=== PATIENT | female | born 1950 | race Caucasian/White ===

== ENCOUNTER 2024-07-24 11:54 | Outpatient (CLI) | payer MEDICARE, SELFPAY ==
--- NOTE | 2024-07-24 13:29 | ECG_ITS ---
Test Date: 2024-07-24 13:33:09 Measurements Intervals [place] Rate: 73 P: 70 AK: 176 QRS: 21 QRSD: 84 T: 62 QT: 357 QTc: 395 Interpretive Statements SINUS RHYTHM No previous ECG available for comparison Electronically Signed On 07-24-2024 15:31:53 NON PROFIT JOB TITLES by Nery Zacarias M.D.
[2024-07-24 13:42] LABS: Basophils Absolute Auto 0.1 K/mm3 (0.0-0.1); Basophils Percent Auto 0.9 % (0.2-1.2); Eosinophils Absolute Auto 0.2 K/mm3 (0-0.3); Eosinophils Percent Auto 3.5 % (0-4.4); Hematocrit 37.3 % (37.0-47.0); Hemoglobin 12.3 g/dL (12.0-15.0); Immature Granulocyte Absolute 0.01 K/mm3 (0.00-0.031); Immature Granulocyte Percent A 0.2 % (0-0.5); Lymphocytes Absolute Auto 1.41 K/mm3 (0.9-3.2); Lymphocytes Percent Auto 24.9 % (18.3-44.2); Mean Corpuscular Hemoglobin 30.4 pg (26-34); Mean Corpuscular Volume 92.3 fl (80-100); Mean Platelet Volume 8.7 fl (7.4-10.4); Monocytes Absolute Auto 0.6 K/mm3 (0.1-0.6); Monocytes Percent Auto 10.1 % (2.6-8.5); Neutrophils Absolute Auto 3.4 K/mm3 (1.3-6.7); Neutrophils Percent Auto 60.4 % (45.5-73.1); Platelet Count Result 212 k/mm3 (150-375); Red Blood Count 4.04 M/mm3 (4.2-5.4); Red Cell Distribution Width 13.7 % (11.5-14.5); White Blood Count 5.7 K/mm3 (4.5-10.0)
[2024-07-24 13:52] LABS: Albumin Level 4.2 g/dL (3.5-5.1); Anion Gap 2 mmol/L (4-12); Blood Urea Nitrogen 13 mg/dL (7-17); Calcium 9.1 mg/dL (8.4-10.2); Carbon Dioxide 33 mmol/L (22-30); Chloride 100 mmol/L (98-107); Estimated Glomerular Filt Rate > 60; Glucose 97 mg/dL (65-110); Sodium 135 mmol/L (137-145)
[2024-07-24 14:07] LABS: Urine Cotinine NEGATIVE
[2024-07-24 15:41] LABS: Hemoglobin A1C 5.6 % (<5.7)
== END 2024-07-24 11:55 | disposition home or self-care (01) ==
LOC: ANHSURGERY 12:00
PROVIDERS: PCP Internal Medicine; Visit Provider Orthopaedic Surgery
DX: M17.12 Unilateral primary osteoarthritis, left knee (principal); Z01.818 Encounter for other preprocedural examination
CPT/HCPCS: 80048; 80307; 82040; 83036; 85025; 87081; 87181; 93005

== ENCOUNTER 2024-08-09 00:54 | Day surgery (SDC) | payer MEDICARE, SELFPAY ==
[2024-07-24 12:21] VITALS: BP 153/69; PULSE 80; RESP 16; TEMP 36.6; O2SAT 95; BMI 25.4
--- NOTE | 2024-07-24 12:48 | PC.NURSE ---
Report to the Outpatient Waiting Room, entrance under the green pavilion located off [facility], at time _06:00am on date _08/09/24 . Planned Procedure Time: _07:30am .? Time changes happen often and if your time is changed the preop area will call you the afternoon before. - You and your visitor will be asked to self-screen and do not enter if you have any COVID symptoms. Please call surgeon if you need to reschedule. - A mask is optional within the hospital at this time. Patients may have clear liquids (water, carbonated beverages, clear teas, apple juice) until 3 hours prior to surgery with a maximum of 20 ounces. - No food from midnight until time of surgery and no smoking. This includes no chewing gum, candy or mints.( 04:30am) Take only the following medications with a SIP of water on the morning of surgery: ____Tylenol if needed for pain DO NOT STOP ANY OF YOUR OTHER PRESCRIPTION MEDICATIONS PRIOR TO SURGERY EXCEPT THE FOLLOWING Medications to discontinue per physician None Date to take last dose__None Please no make-up, nail croatian, hairspray, perfume, deodorant, or body powder the day of surgery.? No jewelry (including any body piercings) or valuables the day of surgery, leave them at home.? Please take a shower or bath the night before, or the morning of, surgery with an antibacterial soap.? Wear comfortable, loose fitting clothing.? - Jewelry must be removed prior to entering the operating room.? Rings and piercings that are not removed may be cut off. - The hospital will not accept responsibility for valuables.? - Please leave all valuables, including medications, at home the day of surgery. If you are going home after surgery, a licensed truck driver helper must drive you home.? - NO public transportation without another adult if you receive anesthesia. - We recommend that an adult stay with you for 24 hours following discharge. - We also recommend that you do not drive, make important decision, drink alcoholic beverages, or take any drugs that were not prescribed by your health care provider for at least 24 hours after your discharge time. Follow any additional instructions given to you from your surgeon. Telephone instructions given to _Patient and asked if any additional questions and then verbalized understanding. Patient advised to call surgeon office or pre surgery nurse liaison [phone] if any additional questions.
--- NOTE | 2024-08-08 07:53 | PM.IMHP ---
H&P: HPI History of Present Illness Date/Time: 08/08/24 07:53 Chief Complaint: Left knee DJD Narrative: 74-year-old female patient of Dr. Brown who presents today for a left total knee arthroplasty. Patient has severe lateral compartment osteoarthritis with limited range of motion. She has treating this for several years with occasional cortisone injection and anti-inflammatories. At this point patient feels she is ready to proceed with total knee arthroplasty rather than continue nonsurgical treatment. Patient has not had a cortisone injection over 6 months. Review of Systems Review of Systems: All systems reviewed & are unremarkable except as noted in HPI and below PMFSH Past Medical History Medical History (Updated 08/08/24 @ 07:57 by NOVA Briscoe) Cancer Anemia Migraine Thyroid disorder Surgical History Surgical History (Updated 07/02/24 @ 11:51 by Zayda Lance CMA) History of cholecystectomy 2007 Family History Family History (Updated 07/02/24 @ 11:49 by Zayda Lance CMA) Mother Hypertension Cancer Father Heart disease Sibling Heart disease Hypertension Legal Guardian Heart disease Hypertension Social History Social History (Updated 07/02/24 @ 14:44 by Cleo Chirinos CMA) Smoking status: Never smoker Alcohol intake: never Substance use: never Current Housing: Decline to Answer Concerned About Future Housing: Decline to Answer Difficulty Paying Gas/Electric Bills: Decline to Answer Difficulty Paying for Meds: Decline to Answer Currently Unemployed: Decline to Answer Education: Decline to Answer Difficulty w/ Childcare or Family Care: Decline to Answer Living arrangements: alone Occupation/Education: retired Gender identity (if verbalized by the patient): Female Spiritual care concerns: No Meds Home Medications and Allergies Home Medications ?Medication ?Instructions ?Recorded ?Confirmed ?Type mupirocin 2 % topical ointment 1 applic topical BID #22 grams 07/26/24 Rx Allergies Allergy/AdvReac Type Severity Reaction Status Date / Time zanamivir Allergy Intermediate sob Unverified 07/24/24 12:19 Exam Narrative: 74-year-old female alert pleasant. She is 5 ft 5 and 149 lb BMI is 24.7. She walks with a mild limp has an obvious valgus deformity to the knee. Range of motion of the left knee is from 5-100 degrees. Trace effusion. There is audible crepitus with range of motion in the knee. He has normal varus valgus stability. Hip range of motion is full without discomfort. Normal quad strength. 2+ dorsalis pedis pulse. Normal sensation to the left lower extremity, no edema to the left lower extremity. She has normal muscle strength in all muscle groups left lower extremity. Resp: Auscultation: clear to auscultation bilaterally Cardio: Rate: regular rate Rhythm: regular rhythm Assessment and Plan Assessment and plan (1) Left knee DJD: Code(s): M17.12 - Unilateral primary osteoarthritis, left knee Status: Acute Assessment and Plan: 74-year-old female who has severe lateral compartment osteoarthritis. She is having pain on a daily basis and limitations with normal daily activities due to the knee. At this point she feels she is ready proceed with total knee arthroplasty. Surgical procedures well as the risks and complications were discussed in detail and all questions were answered and we will proceed. Patient will avoid any aspirin or ibuprofen products 1 week prior to surgery. She will see her primary care doctor for pre-surgical clearance. She will also see her certified endoscopy technician for pre-surgical clearance. Patient's nasal swab was positive for MRSA and she has been D colonizing. Hemoglobin preop earlier 12.3 platelets were 212. Creatinine 0.60 with normal GFR.
[2024-08-09] VITALS (19 sets, daily range): BP systolic 143–181; BP diastolic 58–88; PULSE 86–118; RESP 14–18; TEMP 36.4–37.1; O2SAT 95–100
--- NOTE | ~2024-08-09 | XR_ITS ---
EXAMINATION: [id number] DATE: 08/09/2024 12:14 REHEATER INDICATION: Left knee arthroplasty TECHNIQUE: 2 views left knee FINDINGS: There is a left total knee arthroplasty in expected position. Subcutaneous gas with fluid and air in the joint are consistent with recent surgery. No evidence of periprosthetic fracture. IMPRESSION: 1. Recent left total knee arthroplasty. Reviewed, dictated and finalized at location B. ATER
[2024-08-09] MEDS: ACETAMINOPHEN 500 MG TABLET 1000 MG PO (06:20)
[2024-08-09] MEDS: TRANEXAMIC ACID 1,000MG/ISO100 1,000 MG/100 ML BAG 200 MG IVPB (06:25)
[2024-08-09] MEDS: LACTATED RINGERS 1,000 ML 30 ML IV CONT ×2 (06:25→11:21)
[2024-08-09] MEDS: VANCOMYCIN 1,250 MG/NS 250 ML BAG 166.67 MG IVPB (06:30)
--- NOTE | 2024-08-09 06:43 | WPDHPUPDATE1 ---
History and Physical Update Update Date/Time: 08/09/24 06:43 History and Physical has been reviewed, including an updated exam of the patient. There are NO changes in the patient's condition. Risks, benefits, and alternatives have been discussed and questions answered. Patient agrees to proceed with procedure.
--- NOTE | 2024-08-09 07:05 | WPDANESEPPF ---
Anes - Initial Pre Proc Eval Procedure: Operation Date: 08/09/24 07:30 Proposed Procedures p Left Total Knee Arthroplasty - Keon Bhagat MD Date/Time: 08/09/24 07:05 Surgeon: Keon Bhagat MD Pre Op Diagnosis: Lt Knee O A Patient Data Age: 74 Gender: F Height: 1.65 m Weight: 69 kg Last Vital Signs Temp 36.4 C 08/09/24 06:04 Pulse 86 08/09/24 06:04 Resp 18 08/09/24 06:04 BP 144/64 H 08/09/24 06:04 Pulse Ox 99 08/09/24 06:04 O2 Del Method Room Air 08/09/24 06:04 Allergies Allergy/AdvReac Type Severity Reaction Status Date / Time zanamivir Allergy Intermediate sob Unverified 08/09/24 06:34 Home Medications ?Medication ?Instructions ?Recorded ?Confirmed ?Type No Home Medications 08/09/24 08/09/24 History Laboratory Tests 08/09/24 06:13 Blood Type Pending Antibody Screen Pending Patient hx anesthesia problems: none Family hx anesthesia problems: none Results Review: All pre-operative results and documents have been reviewed as part of the pre-operative evaluation. [facility] Past Medical History Medical History Cancer Anemia Migraine Thyroid disorder Surgical History Surgical History History of cholecystectomy 2007 Family History Family History Mother Hypertension Cancer Father Heart disease Sibling Heart disease Hypertension Legal Guardian Heart disease Hypertension Social History Social History Smoking status: Never smoker Alcohol intake: never Substance use: never Current Housing: Decline to Answer Concerned About Future Housing: Decline to Answer Difficulty Paying Gas/Electric Bills: Decline to Answer Difficulty Paying for Meds: Decline to Answer Currently Unemployed: Decline to Answer Education: Decline to Answer Difficulty w/ Childcare or Family Care: Decline to Answer Living arrangements: alone Occupation/Education: retired Gender identity (if verbalized by the patient): Female Spiritual care concerns: No Anes - Eval Final PreProcedure Day of Procedure 08/09/24 07:05 Patient weight: normal Heart: regular rate and rhythm Lungs: decreased breath sounds Airway: Mallampati scale class II Neurological: alert and oriented Last oral intake: >/= 8 hours ASA classification: IV Emergent: no Anesthetic plan: proceed Anesthesia type and monitoring: general ETT and standard monitoring Results Review: All pre-operative results and documents have been reviewed as part of the pre-operative evaluation. Informed Consent: The patient's anesthetic plan and its attendant risks and benefits were discussed with the patient/family/POA. Questions were solicited and answers provided to the satisfaction of the patient/family/POA.
--- NOTE | 2024-08-09 07:09 | P.PNAN_ITS ---
Anes - Initial Pre Proc Eval Procedure: Operation Date: 08/09/24 07:30 Proposed Procedures p Left Total Knee Arthroplasty - Keon Bhagat MD Date/Time: 08/09/24 07:09 Surgeon: Keon Bhagat MD Pre Op Diagnosis: Lt Knee O A Patient Data Age: 74 Gender: F Height: 1.65 m Weight: 69 kg Last Vital Signs Temp 36.4 C 08/09/24 06:04 Pulse 86 08/09/24 06:04 Resp 18 08/09/24 06:04 BP 144/64 H 08/09/24 06:04 Pulse Ox 99 08/09/24 06:04 O2 Del Method Room Air 08/09/24 06:04 Allergies Allergy/AdvReac Type Severity Reaction Status Date / Time zanamivir Allergy Intermediate sob Unverified 08/09/24 06:34 Home Medications ?Medication ?Instructions ?Recorded ?Confirmed ?Type No Home Medications 08/09/24 08/09/24 History Laboratory Tests 08/09/24 06:13 Blood Type Pending Antibody Screen Pending Patient hx anesthesia problems: none Family hx anesthesia problems: none Results Review: All pre-operative results and documents have been reviewed as part of the pre- operative evaluation. [facility] Past Medical History Medical History Cancer Anemia Migraine Thyroid disorder Surgical History Surgical History History of cholecystectomy 2007 Family History Family History Mother Hypertension Cancer Father Heart disease Sibling Heart disease Hypertension Legal Guardian Heart disease Hypertension Social History Social History Smoking status: Never smoker Alcohol intake: never Substance use: never Current Housing: Decline to Answer Concerned About Future Housing: Decline to Answer Difficulty Paying Gas/Electric Bills: Decline to Answer Difficulty Paying for Meds: Decline to Answer Currently Unemployed: Decline to Answer Education: Decline to Answer Difficulty w/ Childcare or Family Care: Decline to Answer Living arrangements: alone Occupation/Education: retired Gender identity (if verbalized by the patient): Female Spiritual care concerns: No Anes - Eval Final PreProcedure Day of Procedure 08/09/24 07:09 Patient weight: normal Heart: regular rate and rhythm Lungs: decreased breath sounds Airway: Mallampati scale class II Neurological: alert and oriented Last oral intake: >/= 8 hours ASA classification: IV Emergent: no Anesthetic plan: proceed Anesthesia type and monitoring: general ETT and standard monitoring Results Review: All pre-operative results and documents have been reviewed as part of the pre- operative evaluation. Informed Consent: The patient's anesthetic plan and its attendant risks and benefits were discussed with the patient/family/POA. Questions were solicited and answers provided to the satisfaction of the patient/family/POA.
[2024-08-09] MEDS: ceFAZolin 2 GM/D5W 50 ML 2 GM/50 ML BAG IVPB ×2 (07:45→15:19)
[2024-08-09] MEDS: SODIUM CHLORIDE 0.9% IV 37.7 ML, MORPHINE SULFATE INJ (*CRX) 2 MG, ROPivacaine HCL 1% 2... INFILTRATE (08:16)
[2024-08-09] MEDS: ceFAZolin SODIUM 1 GM VIAL (08:17)
[2024-08-09] MEDS: GENTAMICIN BONE CEMENT REFOBACIN 1 EACH TOPICAL (09:51)
[2024-08-09] MEDS: ceFAZolin SODIUM 1 GM VIAL IV PUSH (10:18)
[2024-08-09] MEDS: TRANEXAMIC ACID 1,000 MG/10 ML AMPUL 1000 MG IV PUSH (10:18)
--- NOTE | 2024-08-09 11:04 | W.PM.PROC2 ---
Procedure Note - Detailed Date of Procedure 08/09/24 Pre-op Diagnosis Lt Knee O A, grade 3 valgus deformity Post-op Diagnosis Same Procedure Performed Left total knee arthroplasty with constrained Appremaguard 360 system Surgeon Keon Bhagat MD Building Rental Superintendent Agustin Anesthesia General Description of Procedure Patient was brought to the operating room and general anesthesia was administered. She received 2 g of Ancef weight based vancomycin 1 g of TXA preoperatively. Under anesthesia the knee seemed to come out to within a few degrees of full extension. Obvious valgus deformity. Essentially no passive correct ability of her obvious valgus deformity. The left lower extremity was prepped draped usual fashion. Limb was exsanguinated tourniquet elevated to 250 mmHg. We later raise this to 275 when her pressure settled about 150. A 7 in longitudinal incision was made. A standard parapatellar arthrotomy utilized. Partial excision of the infrapatellar fat pad was carried out and a quadriceps synovectomy performed. Adhesions in the lateral gutter were bluntly released. Suprapatellar fat pad excised. The patella was severely arthritic and scalloped. It measured 22 mm centrally. This was cut to 16 mm and a protector cap applied. A guide salina was inserted on femoral canal after aspiration of canal contents using the a 5 degree valgus bushing, 10 mm of bone was removed from the distal femur. This removed only about 1 mm from the distal surface of the lateral femoral condyle because of wear. The tibial plateau was cut removing about 2 mm of bone from the low point of the lateral plateau perpendicular to the axis of the tibia and alignment in the coronal and sagittal planes confirmed. As expected the lateral side was much tighter than the medial side extension. A transverse release of the lateral retinaculum was performed 1 cm proximal to the cut surface of the lateral plateau and the posterolateral capsule was released over the lateral collateral ligament up to the lateral margin of the popliteus tendon at the level joint line. Flexion gap at 90? measured 8 mm medially and 12 mm laterally. The femoral sizing guide was applied at 5? of external rotation which matched [place] line. There is no varus slope on the tibial surface preoperatively so 5? seemed appropriate for rotation. Posterior referencing pinholes were placed and the 62.5 femoral cutting block vanguard applied and AP and chamfer cuts were made. This gave us a flush cut with the anterior cortex and was just narrower than the with of the distal femur. We trialed with the CR femur and the 10 mm 5 in 1 trial. Stability was appropriate at 90? of flexion with a mm each of medial lateral opening at 90? inappropriate anterior drawer stability. However the knee was far too tight in extension laterally medial side booked open at about 20 degree flexion contracture. Therefore additional 2 mm of bone removed the distal femur and chamfers revisited this time. At that time posterior femoral osteophytes removed and central posterior capsular release carried out off the distal femur and the knee still had a 10 degree flexion contracture due to tightness laterally. Therefore an additional 2 mm of bone was removed the distal femur chamfer cuts revisited. The tibia was sized to a size 71 which fit centrally line to line anteromedially to posterolaterally at proper rotation this was punched. On re- trialing the knee came out to about 5? from full extension. No play laterally on varus stress. We removed additional 1 more mm of bone from the distal femur chamfer cuts revisited and on read trialing the knee still lacked a few degrees of extension but did have a mm of opening laterally with varus stress. Medially there was about 6 or 7 mm of opening on valgus stress. The we revisited the posterior capsule released and performed complete central and lateral capsule release and we debulked the anterior surface of the hypertrophic fabella. The lateral head of the gastrocnemius was left intact. On read trialing now the knee came out to full extension. No lateral opening on varus stress and again about 6 or 7 mm of medial opening to valgus stress. Still appropriate anterior posterior stability at 90? with the 5 in 1 insert. At this point the 360 femoral trial was impacted onto the distal femur and centralized properly pinned in place and the chisel inserted which completed that osteotomy without difficulty the sides of the box cut with the saw and the box bone removed without complication. The jig for the boss Reamer was applied and the reaming performed and the 62.5 femoral trial with SSK box assembly fit nicely and on trialing with the SSK post attached to the tibial trial, there was full range of motion and stability and appropriate anterior drawer stability at 90 and 70?. In extension the medial side opened up only 2 or 3 mm controlled by the post. The patella was sized to the 31 and the drill guide applied lug holes drilled the 31 fit line to line proximal to distal. With the 6.2 mm thin trial composite thickness was 22 mm. The tourniquet had been let down about 20 minutes earlier, at 90 minutes, and we assessed patellar tracking at this time. A lateral retinacular release was necessary to achieve central patellar tracking this was performed and patellar tracking was appropriate this time. At this point the limb was re-exsanguinated tourniquet elevated to 300 mmHg and the tibial plateau and distal femoral surfaces were prepared with the step drill bony surfaces thoroughly irrigated and dried. Two batches of methylmethacrylate 1 with gentamicin powder were mixed. Cement was medially applied the size 71 vanguard tibial tray and then the size 62.5 SSK femur cement applied the tibial plateau and into the canal pressurized and the tibial component fully seated. Cement was applied to the distal femur and into the canal. We had previously inserted a 24 mm cement restrictor. Femoral component was fully seated the knee brought into extension with the 10 mm 5 and 1 trial and the 31 thin patella cemented. Tourniquet was released. Total tourniquet time was approximately 110 minutes. Two additional g of Ancef and 1 g of TXA administered. After cement hardening excess cement was carefully sought for removed. We trialed with the 10 SSK insert and we found the same stability and range of motion findings as above. It appeared that the patella touched the post of the SSK tibial trial at about 130?. After thorough irrigation the size 10 mm thick 71 SSK tibial polyethylene was placed without difficulty locked the locking pin range of motion stability and patellar tracking reconfirmed. Local anesthetic cocktail was injected in the periarticular soft tissues. Hemostasis was confirmed. Arthrotomy was closed with 2. Vicryl 1. Unidirectional barbed Stratafix suture. Ira flexion was 130? with the arthrotomy closed. Skin closed with 2 subcutaneous Vicryl and glue. EBL was approximately 250 cc. There were no complications he was transferred postop recovery room in stable condition. [facility] Billing Surgery - Charge Forward: Surgery Billing (Left total knee arthroplasty)
--- NOTE | 2024-08-09 11:30 | PM.OP ---
Procedure Note - Brief Procedure Note - Brief Date of procedure: 08/09/24 Lt Knee O A Procedure performed: Left total knee arthroplasty Surgeon: NOVA Briscoe Findings: 74-year-old female underwent left total knee arthroplasty on 08/09. I was involved in the procedure including positioning the patient on the OR table in 1st assisting through the time surgery. Total time spent was 4 hours
[2024-08-09] MEDS: fentaNYL CITRATE INJ (*CRX) 100 MCG/2 ML VIAL 25 MCG IV PUSH ×8 (11:34→12:28)
--- NOTE | 2024-08-09 11:47 | PM.PNORT ---
Progress Note: A&P Assessment and Plan (1) History of total left knee replacement: Code(s): Z96.652 - Presence of left artificial knee joint Status: Acute Assessment and Plan: Patient was seen in recovery room and is able to dorsiflex her left ankle and toes with normal power Subjective Subjective Date/Time Seen: 08/09/24 11:47 Objective Data Vital Signs Vital Signs: Vital Signs - 24 hr 08/09/24 06:04 08/09/24 11:21 08/09/24 11:30 Temperature 36.4 C 37.1 C Pulse Rate 86 98 96 Respiratory Rate 18 17 17 Blood Pressure 144/64 H 166/77 H 170/76 H Pulse Oximetry 99 98 100 Oxygen Delivery Room Air Simple Face Mask Simple Face Mask Oxygen Flow Rate 8 8 08/09/24 11:40 Temperature Pulse Rate 93 Respiratory Rate 16 Blood Pressure 161/82 H Pulse Oximetry 100 Oxygen Delivery Simple Face Mask Oxygen Flow Rate 8 Intake/Output Intake/Output: Intake & Output 08/06/24 08/07/24 08/08/24 08/09/24 23:59 23:59 23:59 23:59 Intake Total 50 Balance 50 Meds/Results Medications: Active Medications Generic Name Dose Route Start Last Admin Trade Name Freq PRN Reason Stop Dose Admin Fentanyl Citrate 25 mcg 08/09/24 07:12 08/09/24 11:37 Fentanyl Citrate Inj (*Crx) 100 Mcg/2 Ml Vial IV PUSH 25 mcg Q2M PRN Administration Pain Lactated Ringer's 1,000 mls @ 30 mls/hr 08/09/24 07:15 08/09/24 11:21 Lr - Lactated Ringers Iv IV CONT Infused .Q24H JYOTI Infusion Lactated Ringer's 1,000 mls @ 30 mls/hr 08/09/24 07:15 08/09/24 11:21 Lr - Lactated Ringers Iv IV CONT 30 mls/hr .Q24H JYOTI Administration Ondansetron HCl 4 mg 08/09/24 07:12 Ondansetron Inj 4 Mg/2 Ml Vial IV PUSH ONCE PRN Nausea Oxycodone HCl 5 mg 08/09/24 07:12 Oxycodone Hcl (*Crx) 5 Mg Tab Ir PO ONCE PRN Pain Labs Labs: Laboratory Results - last 24 hr 08/09/24 06:13 Blood Type A Positive Antibody Screen Positive Antibody Identification Anti-E Antigen Identification [place] B Antigen - NEGATIVE RASHAWN, IgG Interpret Neg RASHAWN, Poly Interpret Not Performed RASHAWN, Complement Interp Negative
[2024-08-09] MEDS: ONDANSETRON INJ 4 MG/2 ML VIAL IV PUSH ×2 (12:20→15:28)
--- NOTE | 2024-08-09 12:51 | ADMGEN ---
This patient, Brooke Chirinos, was admitted to Medical Room 246-01. Patient/family oriented to hospital policies and general routines including ID bracelet, bed and alarms, visiting hours, pain management, procedures, bathroom and other care routines, personal items, smoking policy, room service/diet, and visiting hours. Information on how to activate the Rapid Response Team has been discussed. Patient/Family are encouraged to report perceived risks to care and to ask questions if they do not understand what they are told or what they should do.
[2024-08-09] MEDS: SODIUM CHLORIDE 0.9% IV 1,000 ML 125 ML IV CONT (13:40)
[2024-08-09] MEDS: ACETAMINOPHEN 325 MG TABLET 650 MG PO ×3 (14:10→20:42)
[2024-08-09] MEDS: oxyCODONE HCL (*CRX) 2.5 MG TAB IR PO ×4 (14:11→21:05)
[2024-08-09] MEDS: VANCOMYCIN 1,000 MG/NS 250 ML 1,000 MG/250 ML BAG 250 MG IVPB (17:46)
--- NOTE | 2024-08-09 18:09 | P.PNIM_ITS ---
Progress Note: A&P Assessment and Plan (1) History of total left knee replacement: Code(s): Z96.652 - Presence of left artificial knee joint Status: Acute Plan underwent left total knee arthroplasty on 08/09 Subjective Date/time seen: 08/09/24 18:09 Interval history: Patient is sleeping and discussed with nursing team who denies any complaints. Will evaluate the patient tomorrow morning Review of Systems Review of Systems: n/a Exam Narrative: n/a Objective Data Vital Signs Vital Signs: Vital Signs - 24 hr 08/09/24 06:04 08/09/24 11:21 08/09/24 11:30 Temperature 97.6 F 98.7 F Pulse Rate 86 98 96 Respiratory Rate 18 17 17 Blood Pressure 144/64 H 166/77 H 170/76 H Pulse Oximetry 99 98 100 Oxygen Delivery Room Air Simple Face Mask Simple Face Mask Oxygen Flow Rate 8 8 08/09/24 11:40 08/09/24 11:50 08/09/24 12:00 Temperature 98.5 F Pulse Rate 93 98 93 Respiratory Rate 16 15 14 Blood Pressure 161/82 H 170/74 H 161/88 H Pulse Oximetry 100 99 99 Oxygen Delivery Simple Face Mask Simple Face Mask Room Air Oxygen Flow Rate 8 8 08/09/24 12:10 08/09/24 12:20 08/09/24 12:25 Temperature Pulse Rate 95 89 89 Respiratory Rate 16 14 14 Blood Pressure 172/72 H 169/73 H 154/73 H Pulse Oximetry 96 95 96 Oxygen Delivery Nasal Cannula Nasal Cannula Nasal Cannula Oxygen Flow Rate 2 2 2 08/09/24 12:40 08/09/24 12:45 08/09/24 12:57 Temperature 97.8 F 97.6 F Pulse Rate 97 92 100 Respiratory Rate 16 16 14 Blood Pressure 163/78 H 170/80 H 169/76 H Pulse Oximetry 98 98 97 Oxygen Delivery Nasal Cannula Nasal Cannula Oxygen Flow Rate 2 2 08/09/24 13:15 08/09/24 13:45 08/09/24 14:51 Temperature 97.5 F L Pulse Rate 101 H 103 H Respiratory Rate 18 14 Blood Pressure 178/75 H 181/72 H Pulse Oximetry 98 98 Oxygen Delivery Room Air Oxygen Flow Rate 08/09/24 15:12 08/09/24 15:32 08/09/24 16:00 Temperature 97.8 F Pulse Rate 118 H 103 H Respiratory Rate 18 Blood Pressure 144/76 H Pulse Oximetry 96 Oxygen Delivery Room Air Oxygen Flow Rate 08/09/24 17:40 Temperature Pulse Rate Respiratory Rate Blood Pressure 143/58 H Pulse Oximetry Oxygen Delivery Oxygen Flow Rate Intake/Output Intake/Output: Intake & Output 08/06/24 08/07/24 08/08/24 08/09/24 23:59 23:59 23:59 23:59 Intake Total 400 Balance 400 Meds/Results Medications: Active Medications Generic Name Dose Route Start Last Admin Trade Name Freq PRN Reason Stop Dose Admin Acetaminophen 650 mg 08/09/24 13:00 08/09/24 16:40 Acetaminophen 325 Mg Tablet PO 650 mg Q4H JYOTI Administration Apixaban 2.5 mg 08/10/24 09:00 Apixaban 2.5 Mg Tablet PO 08/21/24 21:01 Q12HR JYOTI Celecoxib 100 mg 08/10/24 08:00 Celecoxib 100 Mg Capsule PO DAILY@0800 JYOTI Diphenhydramine HCl 25 mg 08/09/24 12:48 Diphenhydramine Hcl Inj 50 Mg/Ml Vial IV PUSH Q6H PRN Itching Famotidine 20 mg 08/09/24 21:00 Famotidine 20 Mg Tablet PO Q12HR JOYTI Sodium Chloride 1,000 mls @ 125 mls/hr 08/09/24 12:48 08/09/24 13:40 Normal Saline Iv IV CONT 08/09/24 20:47 125 mls/hr .Q8H JYOTI Administration Cefazolin Sodium 2 gm in 50 mls @ 100 mls/hr 08/09/24 16:00 08/09/24 15:49 Ancef 2 Gm/D5w 50 Ml IVPB 08/10/24 08:29 Infused Q8H JYOTI Infusion Vancomycin HCl 1,000 mg in 250 mls @ 250 mls/hr 08/09/24 18:00 08/09/24 17:46 Vancomycin 1,000 Mg/Ns 250 Ml IVPB 08/10/24 06:59 250 mls/hr Q12H JYOTI Administration Morphine Sulfate 2 mg 08/09/24 12:48 Morphine Sulfate (*Crx) 2 Mg/Ml Inj IV PUSH Q2H PRN Breakthrough Pain Rated 4-6 or NPO Naloxone HCl 0.1 mg 08/09/24 12:48 Naloxone Hcl 0.4 Mg/Ml Vial IV PUSH Q2M PRN Opiate Reversal Ondansetron HCl 4 mg 08/09/24 12:48 08/09/24 15:28 Ondansetron Inj 4 Mg/2 Ml Vial IV PUSH 4 mg Q4H PRN Administration Nausea And Vomiting Oxycodone HCl 2.5 mg 08/09/24 13:00 08/09/24 17:37 Oxycodone Hcl (*Crx) 2.5 Mg Tab Ir PO 2.5 mg Q4H JYOTI Administration Oxycodone HCl 2.5 mg 08/09/24 12:48 Oxycodone Hcl (*Crx) 2.5 Mg Tab Ir PO Q4H PRN Pain Rated 4-6 Polyethylene Glycol 17 gm 08/10/24 09:00 Polyethylene Glycol 3350 17 Gm Powd.Pack PO QAM [facility] Senna/Docusate Sodium 2 tab 08/09/24 17:00 08/09/24 16:45 Senna/Docusate Sodium Tablet PO Not Given BID JYOTI Trimethoprim/Sulfamethoxazole 1 tab 08/10/24 09:00 Sulfamethoxazole/Trimethoprim 800/160 Mg Ds Tablet PO Q12HR [facility] Radiology Results: ITS Impressions Knee X-Ray 08/09/24 12:14 IMPRESSION: 1. Recent left total knee arthroplasty. Labs Labs: Laboratory Results - last 24 hr 08/09/24 06:13 Blood Type A Positive Antibody Screen Positive Antibody Identification Anti-E Antigen Identification [place] B Antigen - NEGATIVE RASHAWN, IgG Interpret Neg RASHAWN, Poly Interpret Not Performed RASHAWN, Complement Interp Negative Hospitalist MIPS Advance Care Plan I have confirmed that the patient's Advanced Care Plan is present, code status is documented, or surrogate decision maker is listed in patient medical record.: Yes
[2024-08-09] MEDS: FAMOTIDINE 20 MG TABLET PO (20:42)
--- NOTE | 2024-08-09 22:00 | PC.NURSE ---
DAY SHIFT NURSE CHARTED ON 2100 DOSE OF OXY 2.5MG INSTEAD OF A PRN DOSE, SO 2100 DOSE CHARTED UNDER PRN DOSE
--- NOTE | 2024-08-09 23:57 | PC.NURSE ---
Pt stated that she was sore and rated her pain at a 6. Morphine ordered for break through pain and offered to patient. Patient refused to take morphine and stated that she just wanted to wait for her normal oral dose of pain medication. I instructed her that it would really help but she stated that she didn't want it at this point. Oral scheduled pain medication will be given at 0005. Pt stated that walking to the bathroom helped.
[2024-08-10] VITALS (7 sets, daily range): BP systolic 115–146; BP diastolic 50–62; PULSE 91–113; RESP 16–18; TEMP 36.7; O2SAT 95–98
[2024-08-10] MEDS: ceFAZolin 2 GM/D5W 50 ML 2 GM/50 ML BAG IVPB ×2 (00:06→07:36)
[2024-08-10] MEDS: oxyCODONE HCL (*CRX) 2.5 MG TAB IR PO ×5 (00:07→12:22)
[2024-08-10] MEDS: ACETAMINOPHEN 325 MG TABLET 650 MG PO ×4 (00:07→12:22)
[2024-08-10] MEDS: VANCOMYCIN 1,000 MG/NS 250 ML 1,000 MG/250 ML BAG 250 MG IVPB (06:01)
[2024-08-10 06:04] LABS: Basophils Percent Auto 0.2 % (0.2-1.2); Eosinophils Percent Auto 0.2 % (0-4.4); Hematocrit 29.7 % (37.0-47.0); Hemoglobin 9.7 g/dL (12.0-15.0); Immature Granulocyte Absolute 0.04 K/mm3 (0.00-0.031); Immature Granulocyte Percent A 0.5 % (0-0.5); Lymphocytes Absolute Auto 1.42 K/mm3 (0.9-3.2); Lymphocytes Percent Auto 16.6 % (18.3-44.2); Mean Corpuscular HGB Conc 32.7 g/dl (32-36); Mean Corpuscular Hemoglobin 30.8 pg (26-34); Mean Corpuscular Volume 94.3 fl (80-100); Mean Platelet Volume 9.2 fl (7.4-10.4); Monocytes Absolute Auto 1.2 K/mm3 (0.1-0.6); Monocytes Percent Auto 13.9 % (2.6-8.5); Neutrophils Absolute Auto 5.9 K/mm3 (1.3-6.7); Neutrophils Percent Auto 68.6 % (45.5-73.1); Platelet Count Result 180 k/mm3 (150-375); Red Blood Count 3.15 M/mm3 (4.2-5.4); Red Cell Distribution Width 13.8 % (11.5-14.5); White Blood Count 8.6 K/mm3 (4.5-10.0)
[2024-08-10 06:22] LABS: Alanine Aminotransferase 14 U/L (6-35); Albumin Level 3.2 g/dL (3.5-5.1); Alkaline Phosphatase 49 U/L (38-126); Anion Gap 2 mmol/L (4-12); Aspartate Amino Transferase 35 U/L (14-36); Bilirubin,Total 0.5 mg/dL (0.2-1.3); Blood Urea Nitrogen 9 mg/dL (7-17); Calcium 8.1 mg/dL (8.4-10.2); Carbon Dioxide 30 mmol/L (22-30); Chloride 101 mmol/L (98-107); Estimated CRCL calculation 72 ml/min; Estimated Glomerular Filt Rate > 60; Glucose 103 mg/dL (65-110); Potassium 3.7 mmol/L (3.4-5.0); Sodium 133 mmol/L (137-145)
[2024-08-10] MEDS: APIXABAN 2.5 MG TABLET PO (08:05)
[2024-08-10] MEDS: FAMOTIDINE 20 MG TABLET PO (08:05)
[2024-08-10] MEDS: polyethylene glycoL 3350 17 GM POWD.PACK PO (08:05)
[2024-08-10] MEDS: SENNA/DOCUSATE SODIUM TABLET 2 TAB PO (08:05)
[2024-08-10] MEDS: SULFAMETHOXAZOLE/TRIMETHOPRIM 800/160 MG DS TABLET 1 TAB PO (08:05)
[2024-08-10] MEDS: CELECOXIB 100 MG CAPSULE PO (08:05)
--- NOTE | 2024-08-10 08:11 | PCOTNOTE ---
The patient treatment was not able to be completed patient is nauseous and in pain but agreeable to after her medication. Will plan to continue treatment per plan of care.
--- NOTE | 2024-08-10 08:29 | ECG_ITS ---
Test Date: 2024-08-10 09:15:53 Measurements Intervals Bureau Rate: 102 P: 55 WA: 191 QRS: 26 QRSD: 78 T: 67 QT: 318 QTc: 414 Interpretive Statements SINUS TACHYCARDIA POSSIBLE LEFT ATRIAL ENLARGEMENT [-0.1mV P-WAVE IN V1/V2] LOW QRS VOLTAGE IN PRECORDIAL LEADS [QRS DEFLECTION < 1.0 mV IN CHEST LEADS] Compared to ECG 07/24/2024 13:33:09 NO SIGNIFICANT CHANGES Electronically Signed On 08-10-2024 12:22:33 JIGSAW OPERATOR by Nery Zacarias M.D.
--- NOTE | 2024-08-10 08:30 | PM.PNORT ---
Subjective Subjective Date/Time Seen: 08/10/24 08:30 Interval history: Postop day 1 patient is alert. She is afebrile vital signs are stable. Morning labs are noted. Patient has nausea last night following surgery. This has improved this morning. Pain overall is well controlled. She has been up multiple times to the restroom overnight as well as this morning. Dressing is dry and intact. Neurovascularly she is intact. She is able do a straight leg raise in the bed and is comfortable. Eliquis will be started this morning. Patient will work with Physical therapy this morning and if she remains comfortable she will be discharged home. If she wishes to stay for an additional therapy session and leave early this afternoon. Objective Data Vital Signs Vital Signs: Vital Signs - 24 hr 08/09/24 11:21 08/09/24 11:30 08/09/24 11:40 Temperature 98.7 F Pulse Rate 98 96 93 Respiratory Rate 17 17 16 Blood Pressure 166/77 H 170/76 H 161/82 H Pulse Oximetry 98 100 100 Oxygen Delivery Simple Face Mask Simple Face Mask Simple Face Mask Oxygen Flow Rate 8 8 8 08/09/24 11:50 08/09/24 12:00 08/09/24 12:10 Temperature 98.5 F Pulse Rate 98 93 95 Respiratory Rate 15 14 16 Blood Pressure 170/74 H 161/88 H 172/72 H Pulse Oximetry 99 99 96 Oxygen Delivery Simple Face Mask Room Air Nasal Cannula Oxygen Flow Rate 8 2 08/09/24 12:20 08/09/24 12:25 08/09/24 12:40 Temperature Pulse Rate 89 89 97 Respiratory Rate 14 14 16 Blood Pressure 169/73 H 154/73 H 163/78 H Pulse Oximetry 95 96 98 Oxygen Delivery Nasal Cannula Nasal Cannula Nasal Cannula Oxygen Flow Rate 2 2 2 08/09/24 12:45 08/09/24 12:57 08/09/24 13:15 Temperature 97.8 F 97.6 F 97.5 F L Pulse Rate 92 100 101 H Respiratory Rate 16 14 18 Blood Pressure 170/80 H 169/76 H 178/75 H Pulse Oximetry 98 97 98 Oxygen Delivery Nasal Cannula Oxygen Flow Rate 2 08/09/24 13:45 08/09/24 14:51 08/09/24 15:12 Temperature Pulse Rate 103 H Respiratory Rate 14 Blood Pressure 181/72 H Pulse Oximetry 98 Oxygen Delivery Room Air Room Air Oxygen Flow Rate 08/09/24 15:32 08/09/24 16:00 08/09/24 17:40 Temperature 97.8 F Pulse Rate 118 H 103 H Respiratory Rate 18 Blood Pressure 144/76 H 143/58 H Pulse Oximetry 96 Oxygen Delivery Oxygen Flow Rate 08/09/24 20:00 08/09/24 22:33 08/10/24 00:00 Temperature 98.0 F Pulse Rate 107 H 100 113 H Respiratory Rate 18 Blood Pressure 145/62 H Pulse Oximetry 95 Oxygen Delivery Oxygen Flow Rate 08/10/24 02:33 08/10/24 04:00 08/10/24 07:41 Temperature 98.0 F Pulse Rate 111 H 105 H Respiratory Rate 18 Blood Pressure 127/50 L Pulse Oximetry 98 Oxygen Delivery Room Air Oxygen Flow Rate Intake/Output Intake/Output: Intake & Output 08/07/24 08/08/24 08/09/24 08/10/24 23:59 23:59 23:59 23:59 Intake Total 650 50 Balance 650 50 Meds/Results Medications: Active Medications Generic Name Dose Route Start Last Admin Trade Name Freq PRN Reason Stop Dose Admin Acetaminophen 650 mg 08/09/24 13:00 08/10/24 08:05 Acetaminophen 325 Mg Tablet PO 650 mg Q4H JYOTI Administration Apixaban 2.5 mg 08/10/24 09:00 08/10/24 08:05 Apixaban 2.5 Mg Tablet PO 08/21/24 21:01 2.5 mg Q12HR JYOTI Administration Celecoxib 100 mg 08/10/24 08:00 08/10/24 08:05 Celecoxib 100 Mg Capsule PO 100 mg DAILY@0800 JYOTI Administration Diphenhydramine HCl 25 mg 08/09/24 12:48 Diphenhydramine Hcl Inj 50 Mg/Ml Vial IV PUSH Q6H PRN Itching Famotidine 20 mg 08/09/24 21:00 08/10/24 08:05 Famotidine 20 Mg Tablet PO 20 mg Q12HR JYOTI Administration Morphine Sulfate 2 mg 08/09/24 12:48 Morphine Sulfate (*Crx) 2 Mg/Ml Inj IV PUSH Q2H PRN Breakthrough Pain Rated 4-6 or NPO Naloxone HCl 0.1 mg 08/09/24 12:48 Naloxone Hcl 0.4 Mg/Ml Vial IV PUSH Q2M PRN Opiate Reversal Ondansetron HCl 4 mg 08/09/24 12:48 08/09/24 15:28 Ondansetron Inj 4 Mg/2 Ml Vial IV PUSH 4 mg Q4H PRN Administration Nausea And Vomiting Oxycodone HCl 2.5 mg 08/09/24 13:00 08/10/24 08:05 Oxycodone Hcl (*Crx) 2.5 Mg Tab Ir PO 2.5 mg Q4H JYOTI Administration Oxycodone HCl 2.5 mg 08/09/24 12:48 08/09/24 21:05 Oxycodone Hcl (*Crx) 2.5 Mg Tab Ir PO 2.5 mg Q4H PRN Administration Pain Rated 4-6 Polyethylene Glycol 17 gm 08/10/24 09:00 08/10/24 08:05 Polyethylene Glycol 3350 17 Gm Powd.Pack PO 17 gm QAM JYOTI Administration Senna/Docusate Sodium 2 tab 08/09/24 17:00 08/10/24 08:05 Senna/Docusate Sodium Tablet PO 2 tab BID JYOTI Administration Trimethoprim/Sulfamethoxazole 1 tab 08/10/24 09:00 08/10/24 08:05 Sulfamethoxazole/Trimethoprim 800/160 Mg Ds Tablet PO 1 tab Q12HR JYOTI Administration Radiology Results: ITS Impressions Knee X-Ray 08/09/24 12:14 IMPRESSION: 1. Recent left total knee arthroplasty. Labs Labs: Laboratory Results - last 24 hr 08/09/24 08/10/24 06:13 05:29 WBC 8.6 RBC 3.15 L Hgb 9.7 L Hct 29.7 L MCV 94.3 MCH 30.8 MCHC 32.7 RDW 13.8 Plt Count 180 MPV 9.2 Immature Gran % (Auto) 0.5 Neut % (Auto) 68.6 Lymph % (Auto) 16.6 L [place] % (Auto) 13.9 H Eos % (Auto) 0.2 Baso % (Auto) 0.2 Lymph # (Auto) 1.42 [place] # (Auto) 1.2 H Eos # (Auto) 0.0 Baso # (Auto) 0.0 Abs Immat Gran (auto) 0.04 H Absolute Neuts (auto) 5.9 Absolute Nucleated RBC 0.000 Nucleated RBC % 0.0 Sodium 133 L Potassium 3.7 Chloride 101 Carbon Dioxide 30 Anion Gap 2 L BUN 9 Creatinine 0.50 L Estim Creat Clear Calc 72 Estimated GFR > 60 Glucose 103 Calcium 8.1 L Total Bilirubin 0.5 AST 35 ALT 14 Alkaline Phosphatase 49 Total Protein 5.0 L Albumin 3.2 L Antibody Identification Anti-E Antigen Identification [place] B Antigen - NEGATIVE RASHAWN, Complement Interp Negative
[2024-08-10] MEDS: dexAMETHasone SOD PHOS INJ 10 MG/ML 1 ML VIAL IV PUSH (08:57)
--- NOTE | 2024-08-10 09:52 | P.DS_ITS ---
DS: Admitting Diagnosis Discharge Date 08/10 Admitting Diagnosis Left knee DJD D DS: Discharge Diagnosis Discharge Diagnosis (1) Left knee DJD: Code(s): M17.12 - Unilateral primary osteoarthritis, left knee Status: Acute DS: Summary Hospital Course Hospital Course: 74-year-old female who underwent left total knee arthroplasty on 08/09. Patient underwent the procedure without complications. Postoperatively she has been afebrile vital signs are stable. She is on Eliquis for DVT prophylaxis. She did have some nausea the evening of surgery this improved by the next morning. She was up multiple times the day of surgery not only with physical therapy but also going to the restroom. Pain overall is comfortable. She has been urinating well. Again patient is on Eliquis for DVT prophylaxis. Pain is well controlled with scheduled Tylenol every 4 hours and 2.5 mg oxycodone. She is on 100 mg Celebrex daily. She is weight-bearing as tolerated. Morning of postop day 1 dressing was dry and intact. She will be discharged home on 08/10. She was advised to keep leg elevated home prevent swelling but do her exercises on hourly basis. Patient had a very stiff knee preoperatively and skin take extra work on her part to regain her full range of motion. This was discussed with her as well. She will go home with a 2 week course of Bactrim DS due to her nasal swab showing MRSA. She will also go home with Senokot and MiraLax. Patient was advised any questions or concerns she is to call the office otherwise we will see her at her appointments Time Spent with Patient Time attestation: Total time spent providing and/or coordinating discharge services: DS: Data Data Completed and Pending Labs on day of discharge: Labs from last 24 hours 08/10/24 05:29 WBC 8.6 RBC 3.15 L Hgb 9.7 L Hct 29.7 L MCV 94.3 MCH 30.8 MCHC 32.7 RDW 13.8 Plt Count 180 MPV 9.2 Immature Gran % (Auto) 0.5 Neut % (Auto) 68.6 Lymph % (Auto) 16.6 L [place] % (Auto) 13.9 H Eos % (Auto) 0.2 Baso % (Auto) 0.2 Lymph # (Auto) 1.42 [place] # (Auto) 1.2 H Eos # (Auto) 0.0 Baso # (Auto) 0.0 Abs Immat Gran (auto) 0.04 H Absolute Neuts (auto) 5.9 Absolute Nucleated RBC 0.000 Nucleated RBC % 0.0 Sodium 133 L Potassium 3.7 Chloride 101 Carbon Dioxide 30 Anion Gap 2 L BUN 9 Creatinine 0.50 L Estim Creat Clear Calc 72 Estimated GFR > 60 Glucose 103 Calcium 8.1 L Total Bilirubin 0.5 AST 35 ALT 14 Alkaline Phosphatase 49 Total Protein 5.0 L Albumin 3.2 L Discharge Plan Discharge Patient Disposition: Home, Self-Care Discharge Instructions: KEON BHAGAT M.D [facility] [address] [address] [address] [place] [address] POST-OPERATIVE DISCHARGE INSTRUCTIONS TOTAL KNEE ARTHROPLASTY 1. When resting, do not rest in the chair.When resting, lie on your back, with back flat on the couch or bed, with leg elevated above heart to minimize swelling. You may put a pillow under your head. . Significant swelling could indicate a blood clot and if this occurs call the office (or go to the ER) to have a venous ultrasound. Therefore, do not rest in a chair. 2. At least five times a day spend several minutes stretching your knee into flexion while sitting in the chair and also stretching your knee out straight The abilities to bend your knee fully and straighten your knee fully are two most important knee functions to focus on during your recovery. 3. It is ok to sit in chair to eat, use the toilet and receive a guest and to do your stretching exercises, but, sitting in a chair will cause your leg to swell. Therefore, avoid additional time sitting in the chair. and don't rest in the chair. 4. Wound Care: Nursing will give you an additional Mepilex dressing at the time of discharge. Patient to remove the dressing and apply a new Mepilex dressing at home 7 days after surgery and leave the dressing on until seen in office. It is normal to see a small amount of blood on the silver pad of the Mepilex dressing. Its designed to hold small spots of blood. However, if the blood reaches the edge of the pad up to the boarder of the clear membrane that surrounds the pad, the pad is saturated and the Mepilex dressing should be removed and a new Mepilex dressing should be applied. 5. May shower with a Mepilex dressing in place.The water will run off the dressing. 6. Unless you are told otherwise, you may put full weight on your operated leg. Use a walker for balance and practice walking as normally as you can, ideally for a few minutes every hour while you are awake. 7. I would advise against putting ice packs on your knee incision. Ice constricts blood flow which can impar healing of the knee incision. IMPORTANT: Remember not to sit in the chair for more than 30 minutes at a time. As a rule, during the first 14 days after surgery, only sit in the chair to work on the chair knee bending stretch exercise, for meals or for use of the restroom. Sitting in the chair promotes significant swelling in the knee and leg which will make your knee stiff and more painful and which simulates having a blood clot in the veins of the leg. If this type of significant diffuse swelling occurs, an ultrasound at the hospital will be necessary to rule out a blood clot. Be up walking around with the walker for a few minutes every hour while awake and then rest laying on your back on the couch or in bed with your leg elevated on cushions or pillows. Do not rest in the chair. Patient Language: Belarusian Stand Alone Forms: General Discharge Instructions Follow-up/Referrals: Keon Bhagat MD [Physician] - Keep Reg. Scheduled Appt. Discharge Medications: New acetaminophen 325 mg Tablet 650 mg PO Q4H Qty: 90 0RF sennosides-docusate sodium [Senokot-S] 8.6-50 mg Tablet 2 tab PO BID Qty: 60 0RF celecoxib [Celebrex] 100 mg Capsule 100 mg PO DAILY@0800 Qty: 60 0RF Eliquis 2.5 mg Tablet 2.5 mg PO Q12HR Qty: 28 0RF oxycodone 5 mg tablet 2.5 mg PO Q4H PRN (Reason: Pain Rated 4-6) Qty: 30 0RF polyethylene glycol 3350 [Miralax] 17 gram Powder In Packet 17 g PO QAM Qty: 30 0RF sulfamethoxazole-trimethoprim 800-160 mg Tablet 1 tab PO Q12HR Qty: 28 0RF
--- NOTE | 2024-08-10 14:02 | P.PNIM_ITS ---
Progress Note: A&P Assessment and Plan (1) History of total left knee replacement: Code(s): Z96.652 - Presence of left artificial knee joint Status: Acute Plan underwent left total knee arthroplasty on 08/09 Subjective Date/time seen: 08/10/24 14:02 Interval history: Patient was evaluated at the bedside. Denies any specific complaint other than the pain at the surgical site. EKG shows sinus tachycardia. Patient denies any past medical history other than chronic pericardial effusion for which she is undergoing serial echocardiogram. Review of Systems Review of Systems: n/a Exam Narrative: n/a Objective Data Vital Signs Vital Signs: Vital Signs - 24 hr 08/09/24 14:51 08/09/24 15:12 08/09/24 15:32 Temperature 97.8 F Pulse Rate 118 H Respiratory Rate 18 Blood Pressure 144/76 H Pulse Oximetry 96 Oxygen Delivery Room Air Room Air 08/09/24 16:00 08/09/24 17:40 08/09/24 20:00 Temperature Pulse Rate 103 H 107 H Respiratory Rate Blood Pressure 143/58 H Pulse Oximetry Oxygen Delivery 08/09/24 22:33 08/10/24 00:00 08/10/24 02:33 Temperature 98.0 F 98.0 F Pulse Rate 100 113 H 111 H Respiratory Rate 18 18 Blood Pressure 145/62 H 127/50 L Pulse Oximetry 95 98 Oxygen Delivery 08/10/24 04:00 08/10/24 07:41 08/10/24 07:43 Temperature 98.0 F Pulse Rate 105 H 91 Respiratory Rate 16 Blood Pressure 115/60 Pulse Oximetry 95 Oxygen Delivery Room Air 08/10/24 08:00 08/10/24 12:00 Temperature Pulse Rate 101 H 94 Respiratory Rate Blood Pressure Pulse Oximetry Oxygen Delivery Intake/Output Intake/Output: Intake & Output 08/07/24 08/08/24 08/09/24 08/10/24 23:59 23:59 23:59 23:59 Intake Total 650 50 Balance 650 50 Meds/Results Radiology Results: ITS Impressions Knee X-Ray 08/09/24 12:14 IMPRESSION: 1. Recent left total knee arthroplasty. Labs Labs: Laboratory Results - last 24 hr 08/10/24 05:29 WBC 8.6 RBC 3.15 L Hgb 9.7 L Hct 29.7 L MCV 94.3 MCH 30.8 MCHC 32.7 RDW 13.8 Plt Count 180 MPV 9.2 Immature Gran % (Auto) 0.5 Neut % (Auto) 68.6 Lymph % (Auto) 16.6 L [place] % (Auto) 13.9 H Eos % (Auto) 0.2 Baso % (Auto) 0.2 Lymph # (Auto) 1.42 [place] # (Auto) 1.2 H Eos # (Auto) 0.0 Baso # (Auto) 0.0 Abs Immat Gran (auto) 0.04 H Absolute Neuts (auto) 5.9 Absolute Nucleated RBC 0.000 Nucleated RBC % 0.0 Sodium 133 L Potassium 3.7 Chloride 101 Carbon Dioxide 30 Anion Gap 2 L BUN 9 Creatinine 0.50 L Estim Creat Clear Calc 72 Estimated GFR > 60 Glucose 103 Calcium 8.1 L Total Bilirubin 0.5 AST 35 ALT 14 Alkaline Phosphatase 49 Total Protein 5.0 L Albumin 3.2 L Hospitalist MIPS Advance Care Plan I have confirmed that the patient's Advanced Care Plan is present, code status is documented, or surrogate decision maker is listed in patient medical record.: Yes Medication Reconciliation I have utilized all available resources to obtain, update and review the patie nts current medications (includes all prescriptions, OTC, herbals, cannabis, and nutritional supplements).: Yes
== END 2024-08-10 12:57 | disposition home or self-care (01) ==
LOC: ANHSURGERY 05:50 → ANH2MED 12:50
PROVIDERS: General Practice; Physician Assistant Surgical; PCP Internal Medicine; Visit Provider Orthopaedic Surgery
PROC: (CPT 27447; principal; 2024-08-09 07:30)
DX: M17.12 Unilateral primary osteoarthritis, left knee (principal); M25.762 Osteophyte, left knee; D64.9 Anemia, unspecified; E07.9 Disorder of thyroid, unspecified; Z98.890 Other specified postprocedural states; Z90.49 Acquired absence of other specified parts of digestive tract; Z85.9 Personal history of malignant neoplasm, unspecified; Z80.9 Family history of malignant neoplasm, unspecified; Z82.49 Family history of ischemic heart disease and other diseases of the circulatory system
CPT/HCPCS: 27447; 36415; 73560; 80053; 85025; 86850; 86880; 86900; 86901; 86902; 93005; 97110; 97161; 97165; 97530; 97535; A9270; C1713; C1776; J0171; J0330; J0690; J1100; J1885; J2003; J2270; J2405; J2704; J2795; J3010; J3370; J7030; J7120

== ENCOUNTER 2024-09-19 14:13 | Outpatient (CLI) | payer MEDICARE, SELFPAY ==
--- NOTE | ~2024-09-19 | US_ITS ---
EXAMINATION: US venous doppler [facility] DATE: 09/19/2024 14:58 INDICATION: Left lower limb swelling TECHNIQUE: Grayscale ultrasound images without and with compression and Doppler ultrasound images of the left lower extremity veins were obtained. COMPARISON: None. FINDINGS: The visualized portions of left common femoral vein, profunda (deep) femoral vein, femoral vein, popl iteal vein, peroneal veins, posterior tibial veins and greater saphenous vein outflow are patent. IMPRESSION: 1. No deep venous thrombosis in the left lower limb. Reviewed, dictated and finalized at location B. MANAGER
[2024-09-19 14:40] LABS: Uric Acid 3.6 mg/dL (2.5-7.5)
--- OUTSIDE RECORDS SUMMARY | 2024-09-19 15:10 | XMS_ITS ---
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 Past Plans No past plan information found. Radiation Treatments * No radiation treatments are documented for this patient in [facility]. Treatments may have been administered in another system. Lifetime Dose Tracking * Chemical Lifetime Dose Automatic Entry Manual Entr y DLP 4,486 mGycm 4,486 mGycm 0 mGycm
--- OUTSIDE RECORDS SUMMARY | 2024-09-19 15:10 | XMS_ITS | Referral Summary ---
Author [facility] Address [address] [place] [address] Care Team Providers Care Assembler Erector Name Role Phone Don Brown MD Primary Care Provider [phone] Bayron Francisco MD Unavailable [phone] Encounters Date Type Department Care Team Description 08/02/2024 Telephone [facility] [address] [place] [address] Advanced Medicine 8th [place] [address] [place] [id number] Cornelius Pickett MD PhD 07/30/2024 11:30 AM FILM SOUND COORDINATOR Ancillary Procedure [facility] [address] [place] [address] [address] [place] [address] Pericardial effusion 07/26/2024 Telephone [facility] [address] [place] [address] [facility] 8th [place] [address] [place] [address] Cornelius Pickett MD PhD 07/26/2024 Telephone [facility] [facility] Floor 1, [address] [place] [address] Cornelius Pickett MD PhD bp/hr readings 07/24/2024 Telephone [facility] Floor 1, [address] [place] [address] Cornelius Pickett MD PhD 07/24/2024 Telephone [facility] [address] [facility] 8th [place] [address] [place] [address] Franchesca Del Valle 06/28/2024 11:00 AM FILM SOUND COORDINATOR Office Visit [facility] [address] [facility] Floor 1, [address] [place] [address] Cornelius Pickett MD PhD Follicular lymphoma of lymph nodes of multiple sites (HCC) (Primary Dx); Pericardial effusion from Last 3 Months Allergies Active Allergy Reactions Criticality Noted Date Comments Doxycycline Other (See comments) Low 04/14/2021 Nitrofurantoin Monohyd/M-Cryst Unknown 04/14 Other Nausea only Low 06/21/2006 mortrin Medications No known medications Active Problems Problem Noted Date Diagnosed Date Other constipation 05/02/2024 Diarrhea 05/02/2024 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 Basal cell carcinoma of skin of other parts of f neema 08/23/2014 Overview (03/08/2023): Social History Tobacco Use Types Packs/Day Years Used Date Smoking Tobacco: Never Smokeless Tobacco: Never Alcohol Use Standard Drinks/Week Comments No 0 (1 standard drink = 0.6 oz pur e alcohol) Comments Unknown Sex and Gender Information Value Date Recorded Sex Assigned at Not on file Legal Sex Female 8:36 PM FILM SOUND COORDINATOR Gender Identity Female 02/26/2019 6:25 AM CDT Sexual Orientation Straight 02/26/2019 6: 25 AM CDT Last Filed Vital Signs Vital Sign Reading Time Taken Comments Blood Pressure 168/74 06/28/2024 10:40 AM FILM SOUND COORDINATOR Pulse 76 06/28/2024 10:40 AM FILM SOUND COORDINATOR Temperature 36.7 ??C (98 ??F) 06/28/2024 10: 40 AM FILM SOUND COORDINATOR Respiratory Rate 17 06/28/2024 10:4 0 AM FILM SOUND COORDINATOR Oxygen Saturation 95% 05/02/2024 12: 48 PM CDT Inhaled Oxygen Concentration - - Weight 68.9 kg (151 lb 12.8 oz) 024 10:40 AM FILM SOUND COORDINATOR Height 165.1 cm (5' 5 ) 06/28/2024 10:4 0 AM FILM SOUND COORDINATOR Body Mass Index 25.26 06/28/2024 10:40 AM FILM SOUND COORDINATOR Plan of Treatment Scheduled Procedures Name Priority Associated Diagnoses Date/Ti me COLONOSCOPY Open Access Other constipation Diarrhea, unspecified type Procedures Procedure Name Priority Date/Time Associated Diagnosis Comments TRANSTHORACIC ECHO (TTE) COMPLETE W DOPPLER/CF W CONTRAST Routine 07/30/2024 12:16 PM FILM SOUND COORDINATOR Pericardial effusion ECG 12-LEAD Routine 06/28/2024 10:47 AM FILM SOUND COORDINATOR Pericardial effusion SERUM HEPATITIS C AB Routine 10/30/2014 6:23 AM CDT from Last 3 Months or Most Recently Relevant to Health Maintenance Results * TRANSTHORACIC ECHO (TTE) COMPLETE W DOPPLER/CF W CONTRAST (07/30/2024 12:16 PM FILM SOUND COORDINATOR) LV EF 73 % CARDIOREPORT Anatomical Region Laterality Modality Ultrasound 07/30/2024 11:3 0 AM FILM SOUND COORDINATOR Narrative 07/30/2024 2:27 PM FILM SOUND COORDINATOR Patient name: Rola Mcmanus Date of test: 07/30/2024 Type of test: TTE /[facility] #: 0 Date of : 1950 (F) 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 Contrast Administered by: Loli Harding RN Supervised/Interpreted by: Juvencio Ordoñez MD Diagnosis: Location: [facility] Reason for test: follow up pericardial effusion MV Structure: Normal, ?MV Motion: Normal, ?? Mitral Annulus: Normal AV Structure: tricuspid and is Normal, ?? AV Motion: Normal Aotic root: Normal, ?TM: Normal, ?? PV: Normal Valvular Vegetations: none seen, ?Mass/Thrombi: none seen RA: Normal Measurements: ?M-Mode ?Normal ? Aotic Root: ? <3.8 ? LA: ? <3.8 ? RV: ? <2.8 ? LV(ED): ? <5.7 ? LV(ES): ? Variable ?2D Linear Normal ? Aotic Root: 3.3 cm ?<3.6 ? Ao Indexed: 1.9 cm/M2 <2.0 ? LA: ? <3.8 ? RV: ? 3.5 cm ?<4.2 ? LV(ED): ? 5.1 cm ?<5.3 ? LV(ES): ? 2.7 cm ?<3.5 ?2D Vol. ?? Normal ?Indexed ?? Indexed Normal RA: ? 31.0 ml ? 17.7 ml/M2 ?9-33 ? LA: ? 58.0 ml ? 33.0 ml/M2 ?16-34 ? RV: ? <11.6 ? LV(ED): ? 111.0 ml ??46-106 ?63.2 ml/M2 ?<62 ? LV(ES): ? 30.0 ml ?? 14-42 ? 17.1 ml/M2 ?<25 ?3D Vol. ? Indexed Normal LV(ED): ? 49.6 mL/m2 ?? <62 ? LV(ES): ? 14.8 mL/m2 ?? <24 ? LV EF: 73 % ?? (Normal: >=54%) ?? LV Septum: 1.0 cm ?(Normal: <0.9 cm) Wall Motion Scoring (1=Normal 2=Hypo 3=Akinetic 4=Dyskin./Aneurysm 0=Not visualized) Parasternal Long [place]:MAS=1 BAS=1 MIL=1 EDWIN=1 Parasternal Short [place]:MAS=1 MIS=1 OH=1 MIL=1 MAL=1 MA=1 Apical 4 Chambers:=1 MIS=1 BIS=1 BAL=1 MAL=1 AL=1 AC=1 Apical 2 Chambers:AI=1 OH=1 BI=1 BA=1 MA=1 AA=1 AC=1 LV Global Longitudinal Strain: -17.6% ??(Normal <-17%) RV Global Longitudinal Strain: LV Function: Normal LV Ejection Fraction, ??(EF=54-74%) RV Function: Normal Septal Motion: Normal Pericardial Effusion: moderate Atrial Septum: Normal DOPPLER/COLOR FLOW DOPPLER RESULTS: Diastolic Function: Normal Tricuspid Valve: mild TV regurgitation Pulmonic Valve: Mild DC AV Regurgitation: Mild AR AV Stenosis: no AV Area: ??cm2 AV Pressure Gradient (mmHg): Mean: 0, Peak:0 MV Regurgitation: Mild MR MV Stenosis: no MS MV Area: ??cm2 MV Pressure Gradient (mmHg): Mean: 0 MV ERO: ??cm Regurg. Vol.: ??ml/beat Regurg. Frac.: ??% PA Pressure: 30 mmHg DOPPLER/COLOR FOLOW DOPPLER COMMENTS: Mild AR, Mild MR, no , no MS, mild TV regurgitation, Mild DC. Diastolic function: Normal CONTRAST: 0.4 ml Optison Administered, (2.6 ml wasted). SUMMARY: BP 139/72 mm Hg, HR 71/min; Moderate pericardial effusion; Right atrial collapse; Mild Aortic Regurgitation. Mild Tricuspid Regurgitation with normal estimated Pulmonary Artery Systolic Pressure. ??LV cavity size is in the upper-normal range; Normal LV wall thickness/mass. Mild Mitral Regurgitation. Small-sized inferior vena cava. No signs of hemodynamic compromise; ??As compared to previous study (05/30/2024), there are no appreciable changes. Confirmed on ??07/30/2024 - 14:27:50 by Juvencio Ordoñez MD By signing this report, the attending certified public accountant certifies that he or she has personally supervised and interpreted the echocardiogram and has reviewed and or edited and agrees with the written comments contained within the report. 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 Contrast Administered by: Loli Harding RN Supervised/Interpreted by: Juvencio Ordoñez MD Diagnosis: Location: [facility] Reason for test: follow up pericardial effusion MV Structure: Normal, MV Motion: Normal, Mitral Annulus: Normal AV Structure: tricuspid and is Normal, AV Motion: Normal Aotic root: Normal, TM: Normal, PV: Normal Valvular Vegetations: none seen, Mass/Thrombi: none seen RA: Normal Measurements: M-Mode Normal Aotic Root: <3.8 LA: <3.8 RV: <2.8 LV(ED): <5.7 LV(ES): Variable 2D Linear Normal Aotic Root: 3.3 cm <3.6 Ao Indexed: 1.9 cm/M2 <2.0 LA: <3.8 RV: 3.5 cm <4.2 LV(ED): 5.1 cm <5.3 LV(ES): 2.7 cm <3.5 2D Vol. Normal Indexed Indexed Normal RA: 31.0 ml 17.7 ml/M2 9-33 LA: 58.0 ml 33.0 ml/M2 16-34 RV: <11.6 LV(ED): 111.0 ml 46-106 63.2 ml/M2 <62 LV(ES): 30.0 ml 14-42 17.1 ml/M2 <25 3D Vol. Indexed Normal LV(ED): 49.6 mL/m2 <62 LV(ES): 14.8 mL/m2 <24 LV EF: 73 % (Normal: >=54%) LV Septum: 1.0 cm (Normal: <0.9 cm) Wall Motion Scoring (1=Normal 2=Hypo 3=Akinetic 4=Dyskin./Aneurysm 0=Not visualized) Parasternal Long [place]:MAS=1 BAS=1 MIL=1 EDWIN=1 Parasternal Short [place]:MAS=1 MIS=1 OH=1 MIL=1 MAL=1 MA=1 Apical 4 Chambers:=1 MIS=1 BIS=1 BAL=1 MAL=1 AL=1 AC=1 Apical 2 Chambers:AI=1 OH=1 BI=1 BA=1 MA=1 AA=1 AC=1 LV Global Longitudinal Strain: -17.6% (Normal <-17%) RV Global Longitudinal Strain: LV Function: Normal LV Ejection Fraction, (EF=54-74%) RV Function: Normal Septal Motion: Normal Pericardial Effusion: moderate Atrial Septum: Normal DOPPLER/COLOR FLOW DOPPLER RESULTS: Diastolic Function: Normal Tricuspid Valve: mild TV regurgitation Pulmonic Valve: Mild DC AV Regurgitation: Mild AR AV Stenosis: no AV Area: cm2 AV Pressure Gradient (mmHg): Mean: 0, Peak:0 MV Regurgitation: Mild MR MV Stenosis: no MS MV Area: cm2 MV Pressure Gradient (mmHg): Mean: 0 MV ERO: cm Regurg. Vol.: ml/beat Regurg. Frac.: % PA Pressure: 30 mmHg DOPPLER/COLOR FOLOW DOPPLER COMMENTS: Mild AR, Mild MR, no , no MS, mild TV regurgitation, Mild DC. Diastolic function: Normal CONTRAST: 0.4 ml Optison Administered, (2.6 ml wasted). SUMMARY: BP 139/72 mm Hg, HR 71/min; Moderate pericardial effusion; Right atrial collapse; Mild Aortic Regurgitation. Mild Tricuspid Regurgitation with normal estimated Pulmonary Artery Systolic Pressure. LV cavity size is in the upper-normal range; Normal LV wall thickness/mass. Mild Mitral Regurgitation. Small-sized inferior vena cava. No signs of hemodynamic compromise; As compared to previous study (05/30/2024), there are no appreciable changes. Confirmed on 07/30/2024 - 14:27:50 by Juvencio Ordoñez MD By signing this report, the attending certified public accountant certifies that he or she has personally supervised and interpreted the echocardiogram and has reviewed and or edited and agrees with the written comments contained within the report. Cornelius Pickett MD PhD CV ECHO PROCEDURES Final Re sult * ECG 12 lead (06/28/2024 10:47 AM FILM SOUND COORDINATOR) Cornelius Pickett MD PhD ECG ORDERABLES Edited Resu lt - Final * Serum Hepatitis C ab (10/30/2014 6:23 AM CDT) HCV ab Negative NEG HISTORICAL RESULTS Serum 10/30/2014 6:23 AM CDT Narrative HISTORICAL RESULTS - 10/30/2014 9:15 AM CDT {Testing performed by: [place] [address]} Interpretive Data If confirmation is required, call Laboratory Customer Service to request sample to be sent to [facility] for Hepatitis C Virus (HCV) RNA Detection and Quantitation by Real-Time Reverse Safety Administrator-PCR (RT-PCR). Current interpretive data [facility] S Final Result HISTORICAL RESULTS from Last 3 Months or Most Recently Relevant to Health Maintenance Insurance MEDICARE [employer] MEDICARE SUPPLEMENT MEDICARE [facility] MEDICARE MEDICARE [facility] MEDICARE SUPPLEMENT Care Teams Assembler Erector Relationship Specialty Start Date End Date Don Brown MD PCP - General 11/29/16 Bayron Francisco MD [address] [facility] [address] [place] [address] Medical Oncologist/Pvc Monitor Medical Oncology 03/08/23
--- OUTSIDE RECORDS SUMMARY | 2024-09-19 15:10 | XMS_ITS | Referral Summary ---
Author Organization [facility] Address [address] [place] [address] Care Team Providers Care Lead Injection Mold Technician Name Role Phone Don Brown MD Primary Care Provider [phone] Source Comments [facility],non-owned Affiliates and Associated Physician Practices is amultiple site organization consisting of ambulatory clinics and hospital sitesin [place], [place], [place] and [place]. This disclosure is being madepursuant to the Care Everywhere program and may not contain all information available regarding this patient. Last updated 18.[facility] Allergies Active Allergy Reactions Criticality Noted Date Comments Nsaids 09/18/2014 Pt to avoid all nsaid products Medications * Be aware that medications may not be up to date on this document. Alwaysverify current medications with the patient. Medication Sig Dispensed Refills Start Date End Date Status omeprazole EC (PRILOSEC OTC) 20 MG tablet Take 40 mg by mouth daily before breakfast. Active docusate calcium (SURFAK) 240 MG capsule Take 240 mg by mouth once daily. Active Senna, Sennosides, POWD Use 4 Tabs once daily. Active hydrocodone-acetaminop hen (NORCO) 5-325 MG tablet Take 1 Tab by mouth every 4 hours as needed for Pain. 15 Tab 0 09/19/2014 Active docusate sodium (COLACE) 100 MG capsule Take 1 Cap by mouth once daily. 60 Cap 0 09/19/2014 Active Active Problems Problem Noted Date Diagnosed Date Basal cell carcinoma of skin of other parts of f neema 08/23/2014 Overview (06/29/2015): Social History Tobacco Use Types Packs/Day Years Used Date Smoking Tobacco: Never Smokeless Tobacco: Never Alcohol Use Standard Drinks/Week Comments No 0 (1 standard drink = 0.6 oz pur e alcohol) Sex and Gender Information Value Date Recorded Sex Assigned at Not on file Gender Identity Not on file Sexual Orientation Not on file Last Filed Vital Signs Vital Sign Reading Time Taken Comments Blood Pressure 134/74 03/07/2015 1:28 PM CDT Pulse 80 03/07/2015 1:28 PM CDT Temperature 36.5 ??C (97.7 ??F) 03/07/2015 1:28 PM CD T Respiratory Rate 16 09/19/2014 11:12 AM RECORDS ASSOCIATE Oxygen Saturation 97% 09/19/2014 11:12 AM RECORDS ASSOCIATE Inhaled Oxygen Concentration - - Weight 83.9 kg (185 lb) 03/07/2015 1:28 PM CDT Height 165.1 cm (5' 5 ) 03/07/2015 1:28 PM CDT Body Mass Index 30.79 03/07/2015 1:28 PM CDT Plan of Treatment Not on file Care Teams Lead Injection Mold Technician Relationship Specialty Start Date End Date Don Brown MD PCP - General Internal Medicine 08/23/14
--- OUTSIDE RECORDS SUMMARY | 2024-09-19 15:10 | XMS_ITS | Clinical Summary ---
Author Organization [facility] al Address [address] [place] [address] Care Team Providers Care Stonecutter Apprentice Hand Name Role Phone Don Brown MD Primary Care Provider [phone] Bayron Francisco MD Unavailable [phone] Allergies Active Allergy Reactions Criticality Noted Date [...] parts of f neema 08/23/2014 Overview (03/08/2023): Encounters Date Type Department Care Team Description 08/02/2024 Telephone [facility] Cardiology [address] [facility] Medicine 8th [place] [address] [place] [address] Cornelius Pickett MD PhD 07/30/2024 11:30 AM GEOLOGICAL MANAGER Ancillary Procedure Heart [facility] [address] [facility] [address] [place] [address] Pericardial effusion 07/26/2024 Telephone [facility] Cardiology [address] [facility] Advanced Medicine 8th [place] [address] [place] [address] Cornelius Pickett MD PhD 07/26/2024 Telephone [facility] Cardiology [address] [facility] Floor 1, [address] [place] [address] Cornelius Pickett MD PhD bp/hr readings 07/24/2024 Telephone [facility] Cardiology [address] [facility] Floor 1, [address] [place] [address] Cornelius Pickett MD PhD 07/24/2024 Telephone [facility] Cardiology [facility] Advanced Medicine 8th [place] [address] [place] [address] Franchesca Del Valle 06/28/2024 11:00 AM GEOLOGICAL MANAGER Office Visit [facility] Cardiology 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); Pericardial effusion from Last 3 Months Surgical History Surgery Date Site/Laterality Comments IR FINE NEEDLE ASPIRATION W IMAGE GUIDANCE 10/30/2014 N/A TONSILLECTOMY/ADENOIDECTOMY TUBAL LIGATION SINUS SURGERY CHOLECYSTECTOMY KNEE SURGERY HYSTERECTOMY SKIN GRAFT Medical History Medical History Date Comments Cancer (CMS/HCC) (HCC) Cataract Sinusitis HL (hearing loss) Family History Medical History Relation Name Comments Heart disease Father Cancer Father's Brother Colon cancer Father's Sister Heart disease Maternal Grandfather Heart disease Maternal Grandmother Cancer Mother Cirrhosis Mother Hepatitis Mother Lymphoma Mother Cancer Mother's Brother 1 Lymphoma Mother's Brother 1 Liver cancer Mother's Brother 2 Heart disease Paternal Grandfather Heart disease Paternal Grandmother Relation Name Status Comments Father Father's Brother Father's Sister Maternal Grandfather Maternal Grandmother Mother Mother's Brother 1 Mother's Brother 2 Paternal Grandfather Paternal Grandmother Social History Tobacco Use Types Packs/Day Years Used Date Smoking Tobacco: Never Smokeless Tobacco: Never Alcohol Use Standard Drinks/Week Comments No 0 (1 standard drink = 0.6 oz pur e alcohol) Comments Unknown Sex and Gender Information Value Date Recorded Sex Assigned at Not on file Legal Sex Female 8:36 PM GEOLOGICAL MANAGER Gender Identity Female 02/26/2019 6:25 AM CDT Sexual Orientation Straight 02/26/2019 6: 25 AM CDT Obstetrics History Last Filed Vital Signs Vital Sign Reading Time Taken Comments Blood Pressure 168/74 06/28/2024 10:40 AM GEOLOGICAL MANAGER Pulse 76 06/28/2024 10:40 AM GEOLOGICAL MANAGER Temperature 36.7 ??C (98 ??F) 06/28/2024 10: 40 AM GEOLOGICAL MANAGER Respiratory Rate 17 06/28/2024 10:4 0 AM GEOLOGICAL MANAGER Oxygen Saturation 95% 05/02/2024 12: 48 PM CDT Inhaled Oxygen Concentration - - Weight 68.9 kg (151 lb 12.8 oz) 024 10:40 AM GEOLOGICAL MANAGER Height 165.1 cm (5' 5 ) 06/28/2024 10:4 0 AM GEOLOGICAL MANAGER Body Mass Index 25.26 06/28/2024 10:40 AM GEOLOGICAL MANAGER Plan of Treatment Scheduled Procedures Name Priority Associated Diagnoses Date/Ti me COLONOSCOPY Open Access Other constipation Diarrhea, unspecified type Health Maintenance Due Date Last Done Comments Depression Screening 1950 Fall Risk Assessment 1950 Osteoporosis Screening-Bone Density Scan 1950 Pneumococcal vaccine 65+ (1 of 2 - PCV) 1954 DTaP/Tdap/Td Vaccine (1 - Tdap) 1959 Hepatitis B Screening 1966 Zoster Vaccine (1 of 2) 1967 Well Visit 65+ 2013 Influenza Vaccine (#1) 2024 Hepatitis C Screening Completed 10/30/2014, 015 Procedures Procedure Name Priority Date/Time Associated Diagnosis Comments TRANSTHORACIC ECHO (TTE) COMPLETE W DOPPLER/CF W CONTRAST Routine 07/30/2024 12:16 PM GEOLOGICAL MANAGER Pericardial effusion ECG 12-LEAD Routine 06/28/2024 10:47 AM GEOLOGICAL MANAGER Pericardial effusion SERUM HEPATITIS C AB Routine 10/30/2014 6:23 AM CDT from Last 3 Months or Most Recently Relevant to Health Maintenance Results * TRANSTHORACIC ECHO (TTE) COMPLETE W DOPPLER/CF W CONTRAST (07/30/2024 12:16 PM GEOLOGICAL MANAGER) LV EF 73 % CARDIOREPORT Anatomical Region Laterality Modality Ultrasound 07/30/2024 11:3 0 AM GEOLOGICAL MANAGER Narrative 07/30/2024 2:27 PM GEOLOGICAL MANAGER Patient name: Rola Mcmanus Date of test: 07/30/2024 Type of test: TTE w/Doppler Hospital #: 0 Date of : 1950 (F) Technology Resource Teacher: ROWAN Hutchinson Referring Physician: CORNELIUS PICKETT MD Contrast Agent: 0.4 ml Optison Administered, (2.6 ml wasted). Contrast Administered by: Loli Harding RN Supervised/Interpreted by: Juvencio Ordoñez MD Diagnosis: Location: [facility] Reason for test: follow up pericardial effusion [...] 2=Hypo 3=Akinetic 4=Dyskin./Aneurysm 0=Not visualized) Parasternal [place]:MAS=1 BAS=1 MIL=1 EDWIN=1 Parasternal [place]:MAS=1 MIS=1 FL=1 MIL=1 MAL=1 MA=1 Apical 4 Chambers:=1 MIS=1 BIS=1 BAL=1 MAL=1 AL=1 AC=1 Apical 2 Chambers:AI=1 FL=1 BI=1 BA=1 MA=1 AA=1 AC=1 LV Global Longitudinal Strain: -17.6% ??(Normal <-17%) RV Global Longitudinal Strain: LV Function: Normal LV Ejection Fraction, ??(EF=54-74%) RV Function: Normal Septal Motion: Normal Pericardial Effusion: moderate Atrial Septum: Normal DOPPLER/COLOR FLOW DOPPLER RESULTS: Diastolic Function: Normal Tricuspid Valve: mild TV regurgitation Pulmonic Valve: Mild TN AV Regurgitation: Mild AR AV Stenosis: no AV Area: ??cm2 AV Pressure Gradient (mmHg): Mean: 0, Peak:0 MV Regurgitation: Mild MR MV Stenosis: no MS MV Area: ??cm2 MV Pressure Gradient (mmHg): Mean: 0 MV ERO: ??cm Regurg. Vol.: ??ml/beat Regurg. Frac.: ??% PA Pressure: 30 mmHg DOPPLER/COLOR FOLOW DOPPLER COMMENTS: Mild AR, Mild MR, no , no MS, mild TV regurgitation, Mild TN. Diastolic function: Normal CONTRAST: 0.4 ml Optison [...] MD By signing this report, the attending fine artist certifies that he or she has personally supervised and interpreted the echocardiogram and has reviewed and or edited and agrees with the written comments contained within the report. Procedure Note Juvencio Ordoñez MD - 07/30/2024 Patient name: Rola Mcmanus Date of test: 07/30/2024 Type of test: TTE w/Doppler [facility] #: 0 Date of : 1950 (F) Technology Resource Teacher: ROWAN Hutchinson Referring Physician: CORNELIUS PICKETT MD Contrast Agent: 0.4 ml Optison Administered, (2.6 ml wasted). Contrast Administered by: Loli Harding RN Supervised/Interpreted by: Juvencio Ordoñez MD Diagnosis: Location: [facility] Reason for test: follow up pericardial effusion [...] 2=Hypo 3=Akinetic 4=Dyskin./Aneurysm 0=Not visualized) Parasternal [place]:MAS=1 BAS=1 MIL=1 EDWIN=1 Parasternal [place]:MAS=1 MIS=1 FL=1 MIL=1 MAL=1 MA=1 Apical 4 Chambers:=1 MIS=1 BIS=1 BAL=1 MAL=1 AL=1 AC=1 Apical 2 Chambers:AI=1 FL=1 BI=1 BA=1 MA=1 AA=1 AC=1 LV Global Longitudinal Strain: -17.6% (Normal <-17%) RV Global Longitudinal Strain: LV Function: Normal LV Ejection Fraction, (EF=54-74%) RV Function: Normal Septal Motion: Normal Pericardial Effusion: moderate Atrial Septum: Normal DOPPLER/COLOR FLOW DOPPLER RESULTS: Diastolic Function: Normal Tricuspid Valve: mild TV regurgitation Pulmonic Valve: Mild TN AV Regurgitation: Mild AR AV Stenosis: no AV Area: cm2 AV Pressure Gradient (mmHg): Mean: 0, Peak:0 MV Regurgitation: Mild MR MV Stenosis: no MS MV Area: cm2 MV Pressure Gradient (mmHg): Mean: 0 MV ERO: cm Regurg. Vol.: ml/beat Regurg. Frac.: % PA Pressure: 30 mmHg DOPPLER/COLOR FOLOW DOPPLER COMMENTS: Mild AR, Mild MR, no , no MS, mild TV regurgitation, Mild TN. Diastolic function: Normal CONTRAST: 0.4 ml Optison [...] MD By signing this report, the attending fine artist certifies that he or she has personally supervised and interpreted the echocardiogram and has reviewed and or edited and agrees with the written comments contained within the report. us Cornelius Pickett MD PhD CV ECHO PROCEDURES Final Re sult * ECG 12 lead (06/28/2024 10:47 AM GEOLOGICAL MANAGER) us Cornelius Pickett MD PhD ECG ORDERABLES Edited Resu lt - Final * Serum Hepatitis C ab (10/30/2014 6:23 AM CDT) HCV ab Negative NEG HISTORICAL RESULTS Serum 10/30/2014 6:23 AM CDT Narrative HISTORICAL RESULTS - 10/30/2014 9:15 AM CDT {Testing performed by: [facility], [place] [address]} Interpretive Data If confirmation is required, call Laboratory Customer Service to request sample to be sent to [facility] for Hepatitis C Virus (HCV) RNA Detection and Quantitation by Real-Time Reverse Rn Cardiac Rehab-PCR (RT-PCR). Current interpretive data was [facility] S Final Result HISTORICAL RESULTS from Last 3 Months or Most Recently Relevant to Health Maintenance Insurance MEDICARE [facility] MEDICARE SUPPLEMENT MEDICARE [facility] [place] MEDICARE MEDICARE [facility] MEDICARE SUPPLEMENT Member Subscriber Plan / Payer (Ef fective 2013-Present) Name:Rola Mcmanus Relation to Subscriber:Self Name:Rola Mcmanus Payer ID:[id number] Type:COMMERCIAL Address: [address] [place] [id number] Care Teams Stonecutter Apprentice Hand Relationship Specialty Start Date End Date Don Brown MD PCP - General 11/29/16 Bayron Francisco MD [address] [facility] [address] [place] [address] Medical Oncologist/Tea Tree Farmer Medical Oncology 03/08/23
--- OUTSIDE RECORDS SUMMARY | 2024-09-19 15:10 | XMS_ITS | Clinical Summary ---
Author Organization [facility] [employer] Address [address] [place] [address] Care Team Providers Care Debone Processing Supervisor Name Role Phone Don Brown MD Primary Care Provider [phone] Source Comments [facility] [employer],non-owned Affiliates and Associated Physician Practices is amultiple site organization consisting of ambulatory clinics and hospital sitesin [place], [place], [place] and [place]. This disclosure is being madepursuant to the Care Everywhere program and may not contain all information available regarding this patient. Last updated 18.[facility] [employer] Allergies Active Allergy Reactions Criticality Noted Date [...] T Respiratory Rate 16 09/19/2014 11:12 AM SUPERVISOR WATER SOFTENER SERVICE Oxygen Saturation 97% 09/19/2014 11:12 AM SUPERVISOR WATER SOFTENER SERVICE Inhaled Oxygen Concentration - - Weight 83.9 kg (185 lb) 03/07/2015 1:28 PM CDT Height 165.1 cm (5' 5 ) 03/07/2015 1:28 PM CDT Body Mass Index 30.79 03/07/2015 1:28 PM CDT Plan of Treatment Health Maintenance Due Date Last Done Comments BONE DENSITY TESTING 1950 MEDICARE AWV ? 12 MONTHS 1950 HEPATITIS C SCREENING 04/17/1966 DTAP/TDAP/TD VACCINES (1 - Tdap) 1967 PNEUMOCOCCAL VACCINE 50+ (1 of 1 - PCV) 1998 ZOSTER VACCINE (1 of 2) 1998 Respiratory Syncytial Virus (RSV) Vaccine Pt: or over 60 yrs (1 - 1-dose 75+ series) 2023 COVID-19 VACCINE (1 - 2023-2 5 season) 2024 INFLUENZA VACCINE (#1) 2024 DEPRESSION SCREENING 08/22/2024 HEPATITIS B VACCINE Aged Out No longe r eligible based on patient's age to complete this topic HIB VACCINE Aged Out No longer eligi ble based on patient's age to complete this topic HPV VACCINE Aged Out No longer eligi ble based on patient's age to complete this topic MENINGOCOCCAL (Group B) VACCINE Aged Out No longer eligible based on patient's age to complete this topic MENINGOCOCCAL VACCINE Aged Out No leroy philippe eligible based on patient's age to complete this topic Care Teams Debone Processing Supervisor Relationship Specialty Start Date End Date Don Brown MD PCP - General Internal Medicine 08/23/14
--- OUTSIDE RECORDS SUMMARY | 2024-09-19 15:10 | XMS_ITS | Patient Health Summary ---
Author Organization [facility] Address [address] [place] [address] Care Team Providers Care Customs Agent Name Role Phone Don Brown MD Primary Care Provider [phone] Note from [facility],non-owned Affiliates and Associated Physician Practices is amultiple site organization consisting of ambulatory clinics and hospital sitesin [place], [place], [place] and [place]. This disclosure is being madepursuant to the Care Everywhere program and may not contain all information available regarding this patient. Last updated 18.[facility] Allergies * Nsaids(Pt to avoid all nsaid products) Medications * Be aware that medications may not be up to date on this document. Alwaysverify current medications with the patient. * omeprazole EC (PRILOSEC OTC) 20 MG tablet Take 40 mg by mouth daily before breakfast. * docusate calcium (SURFAK) 240 MG capsule Take 240 mg by mouth once daily. * Senna, Sennosides, POWD Use 4 Tabs once daily. * hydrocodone-acetaminophen (NORCO) 5-325 MG tablet(Started 09/19/2014) Take 1 Tab by mouth every 4 hours as needed for Pain. * docusate sodium (COLACE) 100 MG capsule(Started 09/19/2014) Take 1 Cap by mouth once daily. Active Problems Problem Noted Date Diagnosed Date Basal cell carcinoma of skin of other parts of f neema 08/23/2014 Social History Tobacco Use Types Packs/Day Years [...] T Respiratory Rate 16 09/19/2014 11:12 AM GRADUATE TEACHER EDUCATION Oxygen Saturation 97% 09/19/2014 11:12 AM GRADUATE TEACHER EDUCATION Inhaled Oxygen Concentration - - Weight 83.9 kg (185 lb) 03/07/2015 1:28 PM CDT Height 165.1 cm (5' 5 ) 03/07/2015 1:28 PM CDT Body Mass Index 30.79 03/07/2015 1:28 PM CDT Procedures * DERMATOPATHOLOGY(Performed 04/22/2015) * CARDIAC RHYTHM STRIP ORDER(Performed 09/25/2014) * GRAFT SKIN FULL THICKNESS(Performed 09/19/2014) Performed for Basal cell carcinoma of skin of other and unspecified parts of face * PTT [facility](Performed 08/23/2014) * PT-INR [facility](Performed 08/23/2014) * CBC W AUTO DIFFERENTIAL(Performed 08/23/2014) * BASIC METABOLIC PANEL (CALCIUM TOTAL)(Performed 08/23/2014) * EKG 12-LEAD(Performed 08/23/2014) Performed for Basal cell carcinoma of skin of other and unspecified parts of face * XR CHEST 2VW(Performed 08/23/2014) Performed for Basal cell carcinoma of skin of other and unspecified parts of face * DERMATOPATHOLOGY(Performed 07/03/2014) Results * PATHOLOGY TISSUE FOR DERMATOLOGY (04/22/2015 12:40 PM CDT) Only the most recent of2 resultswithin the time period is included. Result CASE: [id number] PATIENT: ROLA MCMANUS PATHOLOGIC DIAGNOSIS: A. Right nasal tip: BASAL CELL CARCINOMA, NODULAR TYPE B. MIdline upper back: BASAL CELL CARCINOMA, NODULAR TYPE CLINICAL DATA: A: BCC vs scar vs granuloma. B: ISK vs BCC vs HSV. GROSS DESCRIPTION: A: ??Received is one formalin filled container labeled with the patients name and designated right nasal tip. The specimen consists of a shave biopsy measuring 2x6q0ic. Jar 0. B: ??Received is one formalin filled container labeled with the patients name and designated midline upper back. The specimen consists of a shave biopsy measuring 50g4b6bh. Jar 0. MICROSCOPIC DESCRIPTION: SPECIMEN ??A Within the dermis there are aggregates of basaloid cells with a high nuclear to cytoplasmic ratio and peripheral palisading. SPECIMEN ??B Within the dermis there are aggregates of basaloid cells with a high nuclear to cytoplasmic ratio and peripheral palisading. Electronically signed out by Denise Murphy M.D., PhD. 04/24/2015 12:59:49PM [facility] Comment: Performed at: Dermatopathology Laboratory [facility] - Department of Dermatology [address]th [place] [address] Phone number: [phone] FAX: [phone] Skin (tissue) specimen (specimen) 04/22/2015 12:40 PM CDT 04/23/2015 Narrative [facility] - 04/24/2015 1:00 PM CDT Preferred Lab:->Derm-Path Specimen A: Type->Shave ?Site->R nasal tip ?History->pink pearly papule ?Impression->BCC vs scar vs granuloma ?Check Margins:->N/A ?Prior Biopsy->N/A Specimen B: Type->Shave ?Site->midline upper back ?History->pink eroded papule ?Impression->ISK vs BCC vs HSV ?Check Margins:->N/A ?Prior Biopsy->N/A Oneyda Velasquez MD LAB - PATHOLOGY/CY TOLOGY ORDERABLES [facility] [address] [phone] * CARDIAC RHYTHM STRIP ORDER (09/25/2014 2:16 PM GRADUATE TEACHER EDUCATION) Narrative 09/25/2014 2:16 PM GRADUATE TEACHER EDUCATION Ordered by an unspecified provider. Scanned Document CARDIAC SERVICES ORD ERABLES * PTT [facility] (08/23/2014 3:26 PM GRADUATE TEACHER EDUCATION) APTT 27 24 - [address] [facility] Comment: This test has not been validated for monitoring unfractionated heparin therapy. aPTT-based therapeutic ranges for unfractionated heparin therapy have not been established. For general guidelines on Heparin monitoring, refer to the [facility] Directory of Services. Blood specimen (specimen) BLOOD SPECIMEN / Unknown 08/23/2014 3:26 PM GRADUATE TEACHER EDUCATION 08/23/2014 6:01 PM GRADUATE TEACHER EDUCATION Narrative [facility] - 08/24/2014 7:12 AM GRADUATE TEACHER EDUCATION Is patient on Heparin, Argatroban or Dabigatran?->N Performed at: ??01 - [facility] ??[id number] Canvas Worker: Erik Martin PhD, Phone: ??[phone] Don Pedro MD LAB - COAGULATION ORDERABLES [facility] * PT-INR [facility] (08/23/2014 3:26 PM GRADUATE TEACHER EDUCATION) INR 1.0 0.8 - 1.2 [facility] Comment: Reference interval is for non-anticoagulated patients. Suggested INR therapeutic range for Vitamin K antagonist therapy: ?? Standard Dose (moderate intensity ?therapeutic range): ? 2.0 - 3.0 ?? Higher intensity therapeutic range ? 2.5 - 3.5 PT 10.4 9.1 - 12.0 sec [facility] Blood specimen (specimen) BLOOD SPECIMEN / Unknown 08/23/2014 3:26 PM GRADUATE TEACHER EDUCATION 08/23/2014 6:01 PM GRADUATE TEACHER EDUCATION Narrative [facility] ([facility]) - 08/24/2014 7:12 AM GRADUATE TEACHER EDUCATION Is patient on Heparin, Argatroban or Dabigatran?->N Performed at: ??01 - [facility] [address] ??[id number] Canvas Worker: Erik Martin PhD, Phone: ??[phone] Don Pedro MD LAB - COAGULATION ORDERABLES [facility] ([facility] * CBC W AUTO DIFFERENTIAL (08/23/2014 3:26 PM GRADUATE TEACHER EDUCATION) WBC 7.6 3.4 - 10.8 x10E3/uL [facility] ([facility]) RBC 4.47 3.77 - 5.28 x10E6/uL [facility] ([facility]) Hemoglobin 12.7 11.1 - 15.9 g/dL [facility] ([facility]) Hematocrit 38.5 34.0 - 46.6 % [facility] ([facility]) MCV 86 79 - 97 fL [facility] ([facility]) MCH 28.4 26.6 - 33.0 pg [facility] ([facility]) MCHC 33.0 31.5 - 35.7 g/dL [facility] ([facility]) RDW-CV 14.0 12.3 - 15.4 % [facility] ([facility]) Platelet 317 150 - 379 x10E3/uL [facility] ([facility]) Neutrophils % 58 % [facility] Lymphocytes % 26 % [facility] ([facility]) Monocytes % 10 % [facility]) Eosinophils % 5 % [facility] ([facility]) Basophil % 1 % [facility] ([facility]) Neutrophils Absolute 4.4 1.4 - 7.0 x10E3/uL [facility] ([facility]) Lymphocyte Absolute Manual 2.0 0.7 - 3.1 x10E3/uL [facility] ([facility]) Monocytes Absolute 0.8 0.1 - 0.9 x10E3/uL [facility] ([facility]) Eosinophils Absolute Manual 0.4 0.0 - 0.4 x10E3/uL [facility] ([facility]) Basophil Absolute Manual 0.1 0.0 - 0.2 x10E3/uL [facility] ([facility]) Immature Granulocytes % 0 % [facility] ([facility]) Immature Granulocytes absolute 0.0 0.0 - 0.1 x10E3/uL [facility] ([facility]) Blood specimen (specimen) BLOOD SPECIMEN / Unknown 08/23/2014 3:26 PM GRADUATE TEACHER EDUCATION 08/23/2014 6:01 PM GRADUATE TEACHER EDUCATION Narrative [facility] ([facility]) - 08/24/2014 7:12 AM GRADUATE TEACHER EDUCATION Performed at: ??01 - [address] ??[id number] Canvas Worker: Erik Martin PhD, Phone: ??[phone] Don Pedro MD LAB - HEMATOLOGY ORDERABLES [facility] ([facility] * BASIC METABOLIC PANEL (CALCIUM TOTAL) (08/23/2014 3:26 PM GRADUATE TEACHER EDUCATION) Glucose 97 65 - 99 mg/dL [facility] ([facility]) BUN 9 8 - 27 mg/dL [facility] ([facility]) Creatinine 0.70 0.57 - 1.00 mg/dL [facility] ([facility]) eGFR non- 91 >59 mL/min/1.7 3 [facility] ([facility]) eGFR 104 >59 mL/min/1.7 3 [facility] ([facility]) BUN/Creatinine Ratio 13 11 - 26 [facility] ([facility]) Sodium 140 134 - 144 mmol/L [facility] ([facility]) Potassium 4.2 3.5 - 5.2 mmol/L [facility] ([facility]) Chloride 98 97 - 108 mmol/L [facility] ([facility]) CO2 26 18 - 29 mmol/L [facility] ([facility]) Calcium 9.4 8.6 - 10.2 mg/dL [facility] ([facility]) Blood specimen (specimen) BLOOD SPECIMEN / Unknown 08/23/2014 3:26 PM GRADUATE TEACHER EDUCATION 08/23/2014 6:01 PM GRADUATE TEACHER EDUCATION Narrative [facility] ([facility]) - 08/24/2014 7:12 AM GRADUATE TEACHER EDUCATION Performed at: ??01 - [facility] [address] ??[id number] Canvas Worker: Erik Martin PhD, Phone: ??[phone] Don Pedro MD LAB - CHEMISTRY O RDERABLES Performing Organization Address [facility] Co de Phone Number [facility] ([facility]) * EKG 12-LEAD (08/23/2014 3:11 PM GRADUATE TEACHER EDUCATION) Ventricular Rate 69 BPM [facility] Atrial Rate 69 BPM [facility] P-R Interval 170 ms [facility] QRS Duration ms 82 ms [facility] Q-T Interval ms 378 ms [facility] QTC Calculation (Bezet) 405 ms [facility] Calculated P [place] 77 degrees [facility] Calculated R [place] 67 degrees [facility] Calculated T [place] 80 degrees [facility] M[facility] Interpretation EKG NORMAL SINUS RHYTHM CANNOT RULE OUT ANTERIOR INFARCT , AGE UNDETERMINED ABNORMAL ECG NO PREVIOUS ECGS AVAILABLE Confirmed by MD GIL, [facility] ([id number]) on 08/24/2014 9:28:54 AM [facility] MUSE 08/23/2014 3:11 PM GRADUATE TEACHER EDUCATION 08/24/2014 9:28 AM GRADUATE TEACHER EDUCATION Don Pedro MD ECG ORDERABLES Performing Organization Address [facility] Co de Phone Number [facility] M[facility] * XR CHEST PA AND LATERAL (08/23/2014 3:02 PM GRADUATE TEACHER EDUCATION) Anatomical Region Laterality Modality Chest Radiographic Gisselle ging 08/23/2014 4:05 PM GRADUATE TEACHER EDUCATION Impressions 08/23/2014 4:07 PM GRADUATE TEACHER EDUCATION Clear lungs. Narrative 08/23/2014 4:07 PM GRADUATE TEACHER EDUCATION Examination: Chest 2 views History: Basal cell carcinoma Findings: 2 views of the chest were performed without prior comparison. No focal consolidation, pleural effusion, or pneumothorax is seen. Heart size appears normal Procedure Note Tejas Rosales MD - 08/23/2014 Examination: Chest 2 views History: Basal cell carcinoma Findings: 2 views of the chest were performed without prior comparison. No focal consolidation, pleural effusion, or pneumothorax is seen. Heart size appears normal IMPRESSION Clear lungs. Don Pedro MD DIAGNOSTIC LUIS MIGUELIN G ORDERABLES Care Teams Customs Agent Relationship Specialty Start Date End Date Don Brown MD PCP - General Internal Medicine 08/23/14
--- OUTSIDE RECORDS SUMMARY | 2024-09-19 15:10 | XMS_ITS | Continuity of Care Document ---
Author Organization [facility] Address [address] [place] [address] Phone Care Team Providers Care Cook Supervisor Name Role Phone Au OD, Sarabjti Unavailable Unavailable Procedures Procedure Date Contact Lens Check Contact Lens/es Other Type [facility] Eye Exam & Treatment Refraction CL Replacement - [facility] Other 008 [facility] CL Replacement - [facility] Disp W/BW Soft [facility] CL Replacement - [facility] Disp W/BW [facility] No Charge Contact Lens Check No Charge Contact Lens Check Eye Exam & Treatment Advance Directives Directive Yes / No Effective Date File Name No Information Encounters Encounter Description Practice Location Reason(s) For Visit Diagnoses Date Provider Providers Copied on Encounter [facility], [address] [place] [address] [address], [place], [place], [id number], [place] tel:[phone] [facility] No Information 7201 0 Au OD Sarabjit. [address], [place], [address], [place]. tel:[phone] [facility], [address], [place], [place], [address], [place] tel:[phone] [facility] [place] No Information Mahesh-2 0-201 0 Au OD Sarabjit. [address], [place], [place], [facility], [place]. tel:[phone] [facility], [address] [place] [address] [address], [place], [place], [address], tel:[phone] SEC [facility] No Information Mahesh-0 7-200 8 Au OD Sarabjit. [address], [place], [place], [facility], [place]. tel:[phone] [facility], [address] [place] [address] [address], [place], [place], [address], [place] tel:[phone] SEC [facility] No Information Aug-0 2-200 7 Au OD Sarabjit. [address], [place], [place], [facility], [place]. tel:[phone] [facility], [address] [place] [address] [address], [place], [place], [address], [place] tel:[phone] SEC [facility] No Information Mar-0 9-200 7 Au OD Sarabjit. [address], [place], [facility], [place]. tel:[phone] [facility], [address] [place] [address] [address], [place], [place], [address], [place] tel:[phone] SEC [facility] No Information Feb-2 0-200 7 Au OD Sarabjit. [address], [place], [facility], [place]. tel:[phone] [facility], [address] [place] [address] [address], [place], [place], [address], [place] tel:[phone] SEC [facility] No Information Feb-0 6-200 7 Au OD Sarabjit. [address], [place], [facility], [place]. tel:[phone] [facility], [address], [place], [place], [address], [place] tel:[phone] [facility] [place] No Information 200 7 Au OD Sarabjit. [address], [place], [address], [place]. tel:[phone] Family History Family Member Type Diagnosis Age At Onset No Information Payers Payer name Insurance type Covered republican ID Authoriza tion(s) No Information Social History Type Description Quantity Date Captured Comments Sex Female Smoking Status No Information Chief Complaint And Reason For Visit No Information Reason For Referral Reason For Referral No Information History Of Present Illness Encounter Date Complaint History Of Prese nt Illness No Information Functional Status Date Functional Assessmen t No Information Instructions Date Instruction Additional Infor mation No Information Assessments Type Assessment Date No Information Patient Care Teams Name Effective Dates (start - stop) Status Members No Information
--- OUTSIDE RECORDS SUMMARY | 2024-09-19 15:10 | XMS_ITS | CONTINUITY OF CARE DOCUMENT ---
Author Name eunice dawson Address Unknown Organization [facility] Address [address] [place] [address] Phone [phone] Care Team Providers Care Rehabilitation Team Lead Name Role Phone Jacob Adams MD Unavailable [phone] ADOLPH ONOFRE MD Unavailable ADOLPH ONOFRE MD Unavailable [phone] INSURANCE PROVIDERS Payer name Policy type / Coverage type Maz[place] red democrat ID [facility] [id number] [place] Medicare [id number]
== END 2024-09-19 14:14 | disposition home or self-care (01) ==
LOC: ANHIMG 14:16
PROVIDERS: PCP Internal Medicine; Visit Provider Orthopaedic Surgery
DX: R60.0 Localized edema (principal); Z96.652 Presence of left artificial knee joint
CPT/HCPCS: 36415; 84550; 93971

== ENCOUNTER 2024-10-08 10:30 | Outpatient (RCR) | payer MEDICARE, SELFPAY ==
--- NOTE | 2024-08-13 10:08 | OPREHPOC ---
Outpatient Therapy Plan of Care This is a Multidisciplinary Plan of Care that may contain components documented by all disciplines (PT, OT, and ST.) PT Problem 1 PT Problem #1 Knowledge Deficit PT Goal 1 Goal / Goal Update 1. Patient will perform independent HEP Target Visit 4 PT Problem 2 PT Problem #2 Pain PT Goal 1 Goal / Goal Update 1. Patient able to cook and clean with pain no higher than 3/10 Target Visit 10 PT Problem 3 PT Problem #3 Impaired Gait PT Goal 1 Goal / Goal Update 1. Pt will ambulate at least 300 feet on 2 minute walk test without walker Target Visit 10 PT Problem 4 PT Problem #4 Impaired Range of Motion PT Goal 1 Goal / Goal Update 1. Left flexion to 120 for stair navigation 2. Left extension to 0 for normalized gait pattern Target Visit 10 PT Problem 5 PT Problem #5 Impaired Strength PT Goal 1 Goal / Goal Update 1. Left MMT 5/5 in all planes without pain for function at home Target Visit 10
--- NOTE | 2024-08-13 10:08 | PTOPEVAL1 ---
Assessment and note entered by Ramonita Gallo DPT Evaluation Information Assessment Status Evaluation ICD-10 Condition Codes (PT) Pain in left knee M25.562,Difficulty Walking R26.2 ,Weakness R53.1,Aftercare following joint replacement surgery Z47.1 Subjective Information Pt had L TKA on 08/09/24. Highest pain 9/10 and lowest 5/10. Pt is currently ambulating with a walker which she did not use prior to surgery. Pt has a ramp to enter the house, has a flight of stairs but does not have to do them at the moment. Has been able to dress independently and sponge bathe. Pt has not tried any cooking or cleaning. Prior to surgery was patient was independent, drove independently. Patient goal: be able to get out and shop, be out in the community without pain. Returns to MD in 2 weeks. Reported Pain Level Pain Score 9: Self Report Assessment PT Clinical Summary The patient is presenting to skilled therapy s/p L TKA on 08/09/24. She presents with significantly decreased range of motion (+9 to 73), decreased strength, and gait impairments which are contributing to her pain and current difficulty with normal activities including bathing, cooking, and cleaning. She will highly benefit from skilled therapy to address these impairments in order to reduce pain and restore full function. Plan of Care Interventions Electrical Stimulation,Gait Training,Hot Pack/Cold Pack,Manual Therapy,Neuro Re-education,Patient/ Caregiver Education,Therapeutic Activities, Therapeutic Exercise PT Services Indicated Yes Treatment Frequency and 2 times a week for 10 visits Duration These treatments will address the objective and functional deficits as defined above. The patient will be advanced safely and appropriately in order for the patient to progress towards his/her prior level of function. Additional exercises will be introduced and as well as a comprehensive home exercise program upon discharge, if needed, ?to ensure carryover of functional gains achieved in the clinic. This treatment plan has been reviewed and agreement upon by the patient.
--- NOTE | 2024-09-17 10:09 | OPREHPOC ---
Outpatient Therapy Plan of Care This is a Multidisciplinary Plan of Care that may contain components documented by all disciplines (PT, OT, and ST.) PT Problem 1 PT Problem #1 Knowledge Deficit PT Goal 1 Goal / Goal Update 1. Patient will perform independent HEP 09-17-24: progress goal met continue to progress education and HEP Target Visit 15 PT Problem 2 PT Problem #2 Pain PT Goal 1 Goal / Goal Update 1. Patient able to cook and clean with pain no higher than 3/10 09-17-24: progress goal not met, improved to 7/10 continue towards goal Target Visit 15 PT Problem 3 PT Problem #3 Impaired Gait PT Goal 1 Goal / Goal Update 1. Pt will ambulate at least 300 feet on 2 minute walk test without walker 09-17-24: progress goal partially met-- achieved distance, but using wheeled walker continue towards goal add #2 pt report going up/down her stairs at home and comfortable with doing them Target Visit 15 PT Problem 4 PT Problem #4 Impaired Range of Motion PT Goal 1 Goal / Goal Update 1. Left flexion to 120 for stair navigation 2. Left extension to 0 for normalized gait pattern 09-17-24: progress goal not met- improved (-5') to 105' continue towards goal Target Visit 15 PT Problem 5 PT Problem #5 Impaired Strength PT Goal 1 Goal / Goal Update 1. Left MMT 5/5 in all planes without pain for function at home 09-17-24: progress goal not met NEW GOAL: 1* sit/stand without use of UE x 5 reps with good control of motion 2* single leg standing L x 10 seconds Target Visit 10
--- NOTE | 2024-09-17 10:10 | PTOPPROG ---
Assessment and note entered by Stephanie Zaragoza, PT Assessment Status Progress ICD-10 Condition Codes (PT) Pain in left knee M25.562,Difficulty Walking R26.2 ,Weakness R53.1,Aftercare following joint replacement surgery Z47.1 Subjective Information having more pain in L ankle, have previous injury to ankle and sometimes hurts, but now worse, started 5 days ago; have been resting over the weekend and stayed off my feet more to help the ankle; knee is better, not as much pain, still have some swelling in it; have been doing the exercises at home; have been using the cane or nothing, but since ankle more irritated using the wheeled walker; have not gone to her upstairs yet family helping with shopping and driving her; have a stationary bike at home, but have not been using it; everything at home has been going good until the ankle started hurting. see the dr on Tue. PAIN: range pain in the past week 4-7/10; also having L ankle pain, previous injury to ankle and intermittent pain; have been taking 1/2 hydrocodone every 8 hours for pain; with sleeping awaken 2x/night due to knee pain Assessment PT Clinical Summary Brooke has received 7 PT sessions. Compared to the initial evaluation, she has improved in all areas: pain rating 4-7/10; decreased pain med use; with sleeping awaken 2x/ night due to knee pain; has been using the cane, but recent increase in L ankle pain so she is using the wheeled walker again; self assessment LE functional scale of 56% limitation in activity level; 2 minute walking test distance of 325' with wheeled walker; on 12 steps with one hand railing, indep with single step pattern; performing 15 to 20 reps of mat and standing exercises; sitting L knee ROM: (-5') to 105'; supine passive knee extension 0' with increase pain. The goals were partially achieved. Continue PT. Plan of Care Interventions Electrical Stimulation,Gait Training,Manual Therapy,Neuro Re-education,Patient/Caregiver Education,Therapeutic Activities,Therapeutic Exercise,Other Other Interventions taping PT Services Indicated Yes Treatment Frequency and 2x/wk for 8 visits Duration These treatments will address the objective and functional deficits as defined above. The patient will be advanced safely and appropriately in order for the patient to progress towards his/her prior level of function. Additional exercises will be introduced and as well as a comprehensive home exercise program upon discharge, if needed, ?to ensure carryover of functional gains achieved in the clinic. This treatment plan has been reviewed and agreement upon by the patient.
--- NOTE | 2024-10-12 11:35 | PTOPDC ---
Assessment and note entered by Stephanie Zaragoza, PT Assessment Status Discharge - Pt Not Present ICD-10 Condition Codes (PT) Pain in left knee M25.562,Difficulty Walking R26.2 ,Weakness R53.1,Aftercare following joint replacement surgery Z47.1 Subjective Information pt called and canceled therapy appointments; stated she was doing OK and did not need anymore therapy. Assessment PT Clinical Summary Brooke has received a total of 13 PT sessions. She called today, stated she was doing well and canceled remaining appointments. Discharge PT. The goals were not addressed. Plan of Care PT Services Indicated No
== END 2024-10-12 16:14 | disposition home or self-care (01) ==
LOC: ANHPT 10:30
PROVIDERS: PCP Internal Medicine; Visit Provider Orthopaedic Surgery
DX: Z47.1 Aftercare following joint replacement surgery (principal); M17.12 Unilateral primary osteoarthritis, left knee; Z96.652 Presence of left artificial knee joint
CPT/HCPCS: 97014; 97110; 97116; 97140; 97161; 97530; G0283

== ENCOUNTER 2025-01-01 13:38 | Outpatient (CLI) | payer MEDICARE, SELFPAY ==
--- OUTSIDE RECORDS SUMMARY | 2025-01-01 13:57 | XMS_ITS | Continuity of Care Document ---
Author Organization [facility] Address [address] [place] [address] Phone Care Team Providers Care Occupational Health Technician Name Role Phone Au OD, Sarabjit Unavailable Unavailable Procedures Procedure Date Contact Lens Check Contact Lens/es Other Type [facility] Eye Exam & Treatment Refraction CL Replacement - Vistakon Other 008 [facility] CL Replacement - Vistakon Disp W/BW Soft [facility] CL Replacement - Vist[facility]on Disp W/BW Soft [facility] No Charge Contact Lens Check No Charge Contact Lens Check Eye Exam & Treatment Advance Directives Directive Yes / No Effective Date File Name No Information Encounters Encounter Description Practice Location Reason(s) For Visit Diagnoses Date Provider Providers Copied on Encounter [facility], [address] [place] [address] [address], [place], [place], [address], [place] tel:[phone] SEC [facility] No Information 7-201 0 Au OD Sarabjit. [address] [facility] [address], [place], [address], [place]. tel:[phone] [facility], [address], [place], [place], [address], [place] tel:[phone] [facility] No Information Mahesh-2 0-201 0 Au OD Sarabjit. [address], [place], [place], [facility], [place]. tel:[phone] [facility], [address] [place] [address] [address], [place], [place], [address], tel:[phone] [facility] No Information Mahesh-0 7-200 8 Au OD Sarabjit. [address], [place], [facility], [place]. tel:[phone] [facility], [address] [place] [address] [address], [place], [place], [address], [place] tel:[phone] SEC [facility] No Information Aug-0 2-200 7 Au OD Sarabjit. [address], [place], [facility], [place]. tel:[phone] [facility], [address] [place] [address] [address], [place], [place], [address], [place] tel:[phone] SEC [facility] No Information Mar-0 9-200 7 Au OD Sarabjit. [address], [place], [facility], [place]. tel:[phone] [facility], [address] [place] [address] [address], [place], [place], [address], [place] tel:[phone] [facility] No Information Feb-2 0-200 7 Au OD Sarabjit. [address], [place], [facility], [place]. tel:[phone] [facility], [address] [place] [address] [address], [place], [place], [address], [place] tel:[phone] [facility] No Information Feb-0 6-200 7 Au OD Sarabjit. [address], [place], [facility], [place]. tel:[phone] [facility], [address], [place], [place], [address], [place] tel:[phone] [facility] No Information 200 7 Au OD Sarabjit. [address], [place], [address], [place]. tel:[phone] Family History Family Member Type Diagnosis Age At Onset No Information Payers Payer name Insurance type Covered alliance party ID Authoriza tion(s) No Information Social History [...]
--- OUTSIDE RECORDS SUMMARY | 2025-01-01 13:57 | XMS_ITS | Data Portability ---
Author Organization [facility] [place] [facility] Address [address] [facility] [place] [address] Care Team Providers Care Hospitalist Physician Name Role Phone CORNELIUS MAURICE Maintenance Chief ADOLPH BROWN Primary Care Provider Assessment Encounter Date Assessment Date Assessment LastModified by Organization Details LastModified Time 01/04/2024 01/04/2024 Regular Josey we will give her some Ceftin to take for 3 weeks which is what usually settles down her sinuses Diflucan for the yeast infection usually gets with antibiotics blood work obtain thyroid ultrasound obtain old records follow-up with me in 4 months Not available 01/04/2024 21:34:46 05/23/2024 05/23/2024 she will consider immunizations she will follow up me i Not available 06/10/2024 14:26:38 10/11/2024 10/11/2024 overall has been doing fine we will continue to monitor she will see me in 3 months [email or web address] Not available 10/21/2024 23:10:10 Plan of Treatment Reminders Order Date Submit Date Provider Last Modified By Organization Details Last Modified Time Details Appointments ANY 15 2024 01:00P Jesus Brown MD Not available Not available Not available Lab lipid panel, serum 2023 024 [email or web address] [facility], [address], [place], [address], 07/09/2024 10:38:01 CMP, serum or plasma 2023 024 [email or web address] [facility], [address] [facility] [address], [place], [address], 08/29/2024 22:47:19 T4, free, serum 2023 024 [facility] [place], [address] [place] [address], [place], [address], 07/09/2024 10:38:00 T3, free, serum or plasma 2023 024 [facility] [place], [address] [place] [address], [place], [address], 07/09/2024 10:38:00 CBC w/ auto diff 2023 024 [email or web address] [facility], [address] [place] [address], [place], [address], 08/29/2024 22:47:19 TSH, ultra-sen sitive, serum [address] [facility], [address] [place] [address], [place], [address], 07/09/2024 10:38:01 SARS CoV 2 RNA (COVID-19 ), QL, sonographer-PCR, respirato ry specimen - cough,fat igue, sore throat, congestio n, fever, muscle pain, exposed to pos COVID person. [facility] 1200 2019 020 [facility] ([facility]), [address] [place] [address], [address], 05/21/2020 17:20:58 Referral None recorded. Procedures None recorded. Surgeries None recorded. Imaging US, thyroid 2023 024 [facility], [address], [facility] [address], [place], [address], 07/18/2024 15:07:54 Medication Orders cefuroxim e axetil 500 mg tablet 2023 024 [facility], [address] [place], [address], 05/23/2024 10:24:25 Diflucan 150 mg tablet 2023 024 [facility], [address] [place], [address], 05/23/2024 10:24:35 Patient TargetsNo targets recorded. Patient Instructions Encounter Date Encounter Id Patient Instructions Last Modified By Organization Details Last Modified Time 05/20/2020 [id number] Reviewed the following recommendations: -Stay home and separate from others as much as possible. -Monitor your symptoms and seek medical attention for trouble breathing, persistent chest pain, confusion, or bluish lips or face. -Wear a mask if you must be around other people. -Wash your hands often for 20 seconds with soap and water and clean high-touch surfaces daily -You may discontinue home isolation if your symptoms are improving and it has been 10 days since symptoms started. [email or web address] Not available 05/20/2020 11:45:33 Reason for Referral None Reported. Results Created Date Observation Date Name Description Value Unit Range Abnormal Flag Note LastModifiedBy Organization Detail LastModifiedTime 05/20/20 20 05/20/2020 SARS CoV 2 RNA (COVI D-19) , QL, sonographer-P CR, respi rator y speci men sars - cov - 2 PCR NEGATI VE mL Not Available [facility] ([facility]) [address] [place] [address], [address], 05/21/2020 17:20:58 05/20/20 20 05/20/2020 SARS CoV 2 RNA (COVI D-19) , QL, sonographer-P CR, respi rator y speci men covidcom1 COMME NTS: This assay is desig snow to detec t the RdRp and N genes of SARS- CoV-2 using nucle ic acid ampli ficat ion. A negat gloria resul t does not precl ude the possi bilit y of 2019- nCoV infec tion since the adequ acy of sampl e colle ction and/o r low viral burde n may resul t in the prese nce of viral nucle ic acids level s below the cristian tical sensi tivit y of this test metho d. Not Available [facility] (Lab) [address] [place], [address], 05/21/2020 17:20:58 05/20/20 20 05/20/2020 SARS CoV 2 RNA (COVI D-19) , QL, sonographer-P CR, respi rator y speci men covidcom2 Posit gloria resul ts are indic ative of the prese nce of SARS- CoV-2 RNA and do not rule out bacte rial infec tion or co-in fecti on with other virus es. Not Available [facility] (Lab) [address] [facility], [place], [address], 05/21/2020 17:20:58 05/20/20 20 05/20/2020 SARS CoV 2 RNA (COVI D-19) , QL, sonographer-P CR, respi rator y speci men covidcom3 Test resul ts shoul d be used along with other clini gabriela obser vatio ns, patie nt histo ry, epide miolo gical infor matio n and labor atory data in makin g the diagn osis. Not Available [facility] (Lab) [address] [facility], [place], [address], 05/21/2020 17:20:58 05/20/20 20 05/20/2020 SARS CoV 2 RNA (COVI D-19) , QL, sonographer-P CR, respi rator y speci men covidcom4 This test has recei jaden FDA Emerg ency Use Autho rizat ion and has been verif ied by [facility] . This test is only autho rized for the durat ion of the decla ratio n and the circu mstan emiliano that exist to justi fy the autho rizat ion of the emerg ency use of in vitro diagn ostic tests for the detec tion of SARS- CoV-2 virus and/o r diagn osis of COVID -19 infec tion under secti on 564 (b) (1) of the Act. 11 U.S.C . 360bb b-3 (b) (1), unles s the autho fernando ion is termi nated or revok ed soone r. Not Available [facility] (Lab) [address] [place], [address], 05/21/2020 17:20:58 05/20/20 20 05/20/2020 SARS CoV 2 RNA (COVI D-19) , QL, sonographer-P CR, respi rator y speci men covidcom5 [facility] is certi fied under CLIA- 88 as quali fied to perfo rm high compl exity testi ng. This testi ng was perfo rmed in the [facility] [place] [place] [address] (CLIA Licen se #[id number] 5, CAP #[id number], AU-ID #[id number]). Not Available [facility] (Lab) [address] [place], [address], 05/21/2020 17:20:58 05/20/20 20 05/20/2020 SARS CoV 2 RNA (COVI D-19) , QL, sonographer-P CR, respi rator y speci men covidcom6 Facts heet for healt hcare provi ders: https ://ww w.fda .gov/ media /1362 56/do wnloa d Facts heet for patie nts: https ://ww w.fda .gov/ media /1362 57/do wnloa d Not Available [facility] (Lab) [address] [place], [address], 05/21/2020 17:20:58 02/22/20 23 02/21/2023 Thyro tropi n [Unit s/vol ume] in Serum or Plasm a thyroid-stim ulating hormone thyro id-st imula ting hormo ne Not Available Not Available 10/10/2024 16:47:30 02/22/20 23 02/21/2023 Thyro xine (T4) free [Mass /volu me] in Serum or Plasm a free T4 free T4 Not Available Not Available 10/10/2024 16:47:30 02/22/20 23 02/21/2023 Triio dothy yani e (T3) Free [Mass /volu me] in Serum or Plasm a free T3 low free T3 Not Available Not Available 10/10/2024 16:47:30 02/22/20 23 02/21/2023 Lipid 1996 panel - Serum or Plasm a cholesterol gonzalez stero l Not Available Not Available 10/10/2024 16:47:30 02/22/20 23 02/21/2023 Lipid 1996 panel - Serum or Plasm a triglyceride s trigl yceri ching Not Available Not Available 10/10/2024 16:47:30 02/22/20 23 02/21/2023 Lipid 1996 panel - Serum or Plasm a HDL cholesterol HDL gonzalez stero l Not Available Not Available 10/10/2024 16:47:30 02/22/20 23 02/21/2023 Lipid 1995 panel - Serum or Plasm a cholesterol in LDL [mass/volume ] in serum or plasma LDL gonzalez stero l, calcu lated Not Available Not Available 10/10/2024 16:47:30 02/22/20 23 02/21/2023 Compr ehens gloria metab olic 1999 panel - Serum or Plasm a sodium sodiu m Not Available Not Available 10/10/2024 16:47:30 02/22/20 23 02/21/2023 Compr ehens gloria metab olic 2000 panel - Serum or Plasm a potassium potas sium Not Available Not Available 10/10/2024 16:47:30 02/22/20 23 02/21/2023 Compr ehens gloria metab olic 1999 panel - Serum or Plasm a chloride chlor abena Not Available Not Available 10/10/2024 16:47:30 02/22/20 23 02/21/2023 Compr ehens gloria metab olic 2000 panel - Serum or Plasm a carbon dioxide carbo n dioxi de Not Available Not Available 10/10/2024 16:47:30 02/22/20 23 02/21/2023 Compr ehens gloria metab olic 2000 panel - Serum or Plasm a anion gap low anion gap Not Available Not Available 10/10/2024 16:47:30 02/22/20 23 02/21/2023 Compr ehens gloria metab olic 2000 panel - Serum or Plasm a glucose high gluco se Not Available Not Available 10/10/2024 16:47:30 02/22/20 23 02/21/2023 Compr ehens gloria metab olic 2000 panel - Serum or Plasm a BUN BUN Not Available Not Availa ble 10/10/2024 16:47:30 02/22/20 23 02/21/2023 Compr ehens gloria metab olic 2000 panel - Serum or Plasm a creatinine low creat inine Not Available Not Available 10/10/2024 16:47:30 02/22/20 23 02/21/2023 Compr ehens gloria metab olic 2000 panel - Serum or Plasm a GFR >60 GFR Not Available Not Availa ble 10/10/2024 16:47:30 02/22/20 23 02/21/2023 Compr ehens gloria metab olic 2000 panel - Serum or Plasm a alkaline phosphatase alkal ine phosp hatas e Not Available Not Available 10/10/2024 16:47:30 02/22/20 23 02/21/2023 Compr ehens gloria metab olic 2000 panel - Serum or Plasm a alanine aminotransfe rase kirt ne amino trans feras e Not Available Not Available 10/10/2024 16:47:30 02/22/20 23 02/21/2023 Compr ehens gloria metab olic 2000 panel - Serum or Plasm a aspartate aminotransfe rase aspar gill amino trans feras e Not Available Not Available 10/10/2024 16:47:30 02/22/20 23 02/21/2023 Compr ehens gloria metab olic 2000 panel - Serum or Plasm a bilirubin, total bilir ubin, total Not Available Not Available 10/10/2024 16:47:30 02/22/20 23 02/21/2023 Compr ehens gloria metab olic 2000 panel - Serum or Plasm a calcium calci um Not Available Not Available 10/10/2024 16:47:30 02/22/20 23 02/21/2023 Compr ehens gloria metab olic 2000 panel - Serum or Plasm a total protein total prote in Not Available Not Available 10/10/2024 16:47:30 02/22/20 23 02/21/2023 Compr ehens gloria metab olic 1999 panel - Serum or Plasm a albumin album in Not Available Not Available 10/10/2024 16:47:30 02/22/20 23 02/21/2023 Compr ehens gloria metab olic 2000 panel - Serum or Plasm a globulin low globu yung Not Available Not Available 10/10/2024 16:47:30 02/22/20 23 02/21/2023 Compr ehens gloria metab olic 2000 panel - Serum or Plasm a A/G ratio A/G ratio Not Available Not Available 10/10/2024 16:47:30 02/22/20 23 02/21/2023 CBC W Auto Diffe renti al panel - Blood white blood cells white blood cells Not Available Not Available 10/10/2024 16:47:30 02/22/20 23 02/21/2023 CBC W Auto Diffe renti al panel - Blood red blood cells red blood cells Not Available Not Available 10/10/2024 16:47:30 02/22/20 23 02/21/2023 CBC W Auto Diffe renti al panel - Blood hemoglobin low hemog lobin Not Available Not Available 10/10/2024 16:47:30 02/22/20 23 02/21/2023 CBC W Auto Diffe renti al panel - Blood hematocrit hemat ocrit Not Available Not Available 10/10/2024 16:47:30 02/22/20 23 02/21/2023 CBC W Auto Diffe renti al panel - Blood mean red cell volume mean red cell volum e Not Available Not Available 10/10/2024 16:47:30 02/22/20 23 02/21/2023 CBC W Auto Diffe renti al panel - Blood mean red cell hemoglobin mean red cell hemog lobin Not Available Not Available 10/10/2024 16:47:30 02/22/20 23 02/21/2023 CBC W Auto Diffe renti al panel - Blood mean RBC HGB concentratio n mean RBC HGB emilee ntrat ion Not Available Not Available 10/10/2024 16:47:30 02/22/20 23 02/21/2023 CBC W Auto Diffe renti al panel - Blood red cell distribution width red cell distr ibuti on width Not Available Not Available 10/10/2024 16:47:30 02/22/20 23 02/21/2023 CBC W Auto Diffe renti al panel - Blood platelets plate lets Not Available Not Available 10/10/2024 16:47:30 02/22/20 23 02/21/2023 CBC W Auto Diffe renti al panel - Blood mean platelet volume mean plate let volum e Not Available Not Available 10/10/2024 16:47:30 02/22/20 23 02/21/2023 CBC W Auto Diffe renti al panel - Blood neutrophils neutr ophil s Not Available Not Available 10/10/2024 16:47:30 02/22/20 23 02/21/2023 CBC W Auto Diffe renti al panel - Blood lymphocytes lymph ocyte s Not Available Not Available 10/10/2024 16:47:30 02/22/20 23 02/21/2023 CBC W Auto Diffe renti al panel - Blood monocytes monoc ytes Not Available Not Available 10/10/2024 16:47:30 02/22/20 23 02/21/2023 CBC W Auto Diffe renti al panel - Blood eosinophils eosin ophil s Not Available Not Available 10/10/2024 16:47:30 02/22/20 23 02/21/2023 CBC W Auto Diffe renti al panel - Blood basophils basop hils Not Available Not Available 10/10/2024 16:47:30 02/22/20 23 02/21/2023 CBC W Auto Diffe renti al panel - Blood immature granulocytes immat ure granu locyt es Not Available Not Available 10/10/2024 16:47:30 02/22/20 23 02/21/2023 CBC W Auto Diffe renti al panel - Blood neutrophils, absolute count neutr ophil s, absol cantwell count Not Available Not Available 10/10/2024 16:47:30 02/22/20 23 02/21/2023 CBC W Auto Diffe renti al panel - Blood lymphocytes, absolute count lymph ocyte s, absol cantwell count Not Available Not Available 10/10/2024 16:47:30 02/22/20 23 02/21/2023 CBC W Auto Diffe renti al panel - Blood monocytes, absolute count monoc ytes, absol cantwell count Not Available Not Available 10/10/2024 16:47:30 02/22/20 23 02/21/2023 CBC W Auto Diffe renti al panel - Blood eosinophils, absolute count eosin ophil s, absol cantwell count Not Available Not Available 10/10/2024 16:47:30 02/22/20 23 02/21/2023 CBC W Auto Diffe renti al panel - Blood basophils, absolute count basop hils, absol cantwell count Not Available Not Available 10/10/2024 16:47:30 02/22/20 23 02/21/2023 CBC W Auto Diffe renti al panel - Blood immature granulocytes ,absolute immat ure granu locyt es,ab solut e Not Available Not Available 10/10/2024 16:47:30 02/22/20 23 02/21/2023 CBC W Auto Diffe renti al panel - Blood nucleated red blood cells nucle ated red blood cells Not Available Not Available 10/10/2024 16:47:30 02/22/20 23 02/21/2023 CBC W Auto Diffe renti al panel - Blood NRBC# NRBC# Not Available Not Availa ble 10/10/2024 16:47:30 08/09/20 24 08/09/2024 XR, knee, 1 or 2 view No observ ation record ed. [address] [place] [address], [address], 08/10/2024 09:51:02 09/19/19 25 09/19/2024 US, doppl er, venou s No observ ation record ed. [address] [place] [address], [address], 09/20/2024 17:59:56 Result Notes None recorded. Problems Name Problem SNOMED Code Status Onset Date Resolution Date Notes Provider Name and Address Organization Details Recorded Time Fatigue 10330415 Active 024 ALBINO Ivan, [place] - [facility] 4 14:27:32 Thyroid nodule 455779545 Active 024 ALBINO Ivan, [place] - [facility] 4 14:27:33 Sinusitis 85149311 Active 024 Adolph Brown MD Attn: Vilma pires,[address] [facility], [place], [address], [facility] - SI 21:34:46 Problem Notes None recorded. Procedures Surgical History Date Name Laterality Status Provider Name and Address Organization Details Recorded Time Arthroscopic Surgery completed Halina Valdovinos [place] [facility] 01/04/2024 14:06:10 Heart Surgery completed [place]ina [place] [facility] 01/04/2024 14:06:15 Knee Surgery completed Halina Valdovinos [place] - [facility] 01/04/2024 14:06:20 Tonsillectomy completed Halina Vald[place]inos [place] [facility] 01/04/2024 14:06:24 ligation of bilateral fallopian tubes completed Halina Valdovinos [place] [facility] 01/04/2024 14:06:31 Total hysterectomy completed Mahesh Valdovinos [place] [facility] 01/04/2024 14:06:38 Imaging Results Imaging Date Name Status LastModified by Organiz ation Details LastModified Time 08/09/2024 XR, knee, 1 or 2 view completed [address] [place] [address], [address], 08/10/2024 09:51:02 09/19/2024 US, doppler, venous completed [address], [address], 09/20/2024 17:59:56 Procedure Notes None recorded. Medical Equipment None Reported. Allergies Allergen ID Allergen Name Allergen Category Reaction Reaction Severity Criticality Documentation Date Start Date Code Code System Note Provider Name and Address Organization Details Recorded Time 845744 doxycycli ne Not available other Not available Not available 10/11/20242020 3640 RxNorm ALBINO [place], [place] - [facility] 14:21:06 167463 Macrobid medicatio n other mild low 10/11/20242020 53127 1 RxNorm med cause s yeast infec tiJOHN PAUL [place], [place] - [facility] 5 09:39:29 932869 nitrofura ntoin, macrocrys tals / nitrofura ntoin, monohydra te medicatio n Not available Not available Not available 10/11/20242020 71837 2 RxNorm unrec ogniz ed react ion (text : Unkno wn, code: [id number]) (from ) Tawanna Britton LPN null, [place] - [facility] 5 09:40:56 Medications Name Sig Start Date Stop Date Status Note LastModified by Organization Details LastModified Time eq stl sft st lax 8.6-50mg tab TAKE 2 TABLETS BY MOUTH TWICE DAILY active Not Available Not Available No t Available amoxicillin 500 mg capsule TAKE 1 CAPSULE BY MOUTH THREE TIMES DAILY FOR 7 DAYS active Not Available Not Available No t Available fluconazole 100 mg tablet TAKE 1 TABLET BY MOUTH ONCE DAILY 05/23 completed Not Available Not Available Not Available acetaminoph en 325 mg tablet TAKE 2 TABLETS BY MOUTH EVERY 4 HOURS active Not Available Not Available No t Available polyethylen e glycol 3350 17 gram oral powder packet MIX 1 PACKET (17 G) INTO GLASS OF WATER active Not Available Not Available No t Available ofloxacin 0.3 % eye drops INSTILL 1 DROP INTO SURGICAL EYE THREE TIMES DAILY STARTING 2 DAYS BEFORE SURGERY AND CONTINUE FOR 1 WEEK AFETR active Not Available Not Available No t Available fluconazole 150 mg tablet TAKE 1 TABLET BY MOUTH ONCE DAILY FOR 2 DAYS active Not Available Not Available No t Available ondansetron HCl 8 mg tablet TAKE 1 TABLET BY MOUTH EVERY 8 HOURS NEEDED FOR NAUSEA AND VOMITING active Not Available Not Available No t Available sulfamethox azole 800 mg-trimetho prim 160 mg tablet TAKE 1 TABLET BY MOUTH EVERY 12 HOURS active Not Available Not Available No t Available amoxicillin 500 mg tablet Take 1 tablet 3 times a day by oral route for 7 days. 2024 active Not Available Not Available Not Avai lable ketorolac 0.5 % eye drops INSTILL 1 DROP THREE TIMES DAILY INTO SURGICAL EYE 2 DAYS BEFORE SURGERY, CONTINUE FOR 2 WEEKS AFTER active Not Available Not Available No t Available prednisolon e acetate 1 % eye drops,suspe nsion INSTILL 1 DROP THREE TIMES DAILY INTO SURGICAL EYE AFTER SURGERY, CONTINUE FOR 3 WEEKS. active Not Available Not Available No t Available erythromyci n 5 mg/gram (0.5 %) eye ointment APPLY A SMALL AMOUNT TO THE RIGHT EYE TWICE DAILY FOR 1 WEEK 05/23 completed Not Available Not Available Not Available mupirocin 2 % topical ointment APPLY TOPICALLY TO EACH NOSTRIL TWICE DAILY active Not Available Not Available No t Available cefuroxime axetil 500 mg tablet TAKE 1 TABLET BY MOUTH TWICE DAILY FOR 7 DAYS 05/23 completed Not Available Not Available Not Available methylpredn isolone 4 mg tablets in a dose pack TAKE BY MOUTH DIRECTED ON INSIDE OF PACKAGE active Not Available Not Available No t Available celecoxib 100 mg capsule TAKE 1 CAPSULE BY MOUTH ONCE DAILY AT 8 AM active Not Available Not Available No t Available oxycodone 5 mg tablet TAKE 1 TABLET BY MOUTH EVERY 4 HOURS NEEDED FOR PAIN active Not Available Not Available No t Available nitrofurant oin monohydrate /macrocryst als 100 mg capsule TAKE 1 CAPSULE BY MOUTH EVERY 12 HOURS FOR 5 DAYS active Not Available Not Available No t Available Eliquis 2.5 mg tablet TAKE 1 TABLET BY MOUTH EVERY 12 HOURS active Not Available Not Available No t Available Vitals Date Recorded Body height Body mass index (BMI) Body weight Heart rate Oxygen saturation Oxygen saturation in Arterial blood by Pulse oximetry Systolic blood pressure Diastolic blood pressure Provider Name and Address Organization Details Last Updated DateTime 4 165.1 cm 24.7 kg/m2 42057.8 3 g 85 /min 99 % 99 % 142 mm[Hg] 88 mm[Hg] Halina Valdovinos [place] - [facility] 4 14:10:31 Date Recorded Body height Body mass index (BMI) Body weight Heart rate Oxygen saturation Oxygen saturation in Arterial blood by Pulse oximetry Systolic blood pressure Diastolic blood pressure Provider Name and Address Organization Details Last Updated DateTime 4 165.1 cm 24.7 kg/m2 06115.1 1 g 91 /min 97 % 97 % 122 mm[Hg] 70 mm[Hg] Mis Granda [place] - [facility] 4 10:28:01 Date Recorded Body height Body mass index (BMI) Body weight Heart rate Oxygen saturation Oxygen saturation in Arterial blood by Pulse oximetry Systolic blood pressure Diastolic blood pressure Provider Name and Address Organization Details Last Updated DateTime 5 165.1 cm 24.8 kg/m2 02725.2 6 g 84 /min 98 % 98 % 110 mm[Hg] 70 mm[Hg] Crystal Haddad [place] - [facility] 14:20:55 Social History Question Answer Notes LastModified by Organizat ion Details LastModified Time Tobacco Smoking Status Never Smoker Halina Valdovinos [place] null, [place] - [facility] 01/04/2024 14:08:12 Do You Have An Advance Directive? No Information n ot available 05/23/2024 Are You Blind Or Do You Have Difficulty Seeing? No Information n ot available 01/04/2024 What Is Your Level Of Caffeine Consumption? None Information not available 05/23/2024 In The 14 Days Before Symptom Onset, Have You Had Close Contact With A Laboratory-confirm ed COVID-19 While That Case Was Ill? No Information n ot available 05/23/2024 In The 14 Days Before Symptom Onset, Have You Had Close Contact With A Person Who Is Under Investigation For COVID-19 While That Person Was Ill? No Information not available 05/23/2024 Have You Been To An Area Known To Be High Risk For COVID-19? No Information not available 05/23/2024 Are You Deaf Or Do You Have Serious Difficulty Hearing? Yes Information not available 01/04/2024 What Type Of Diet Are You Following? REGULAR Information n ot available 05/23/2024 Are There Any Guns Present In Your Home? No Information not available 05/23/2024 What Was The Date Of Your Most Recent Tobacco Screening? 10/11/2024 [email or web address] Information not available 10/11/2024 What Is Your Relationship Status? Information not available 01/04/2024 Do You Use Your Seat Belt Or Car Seat Routinely? Yes Information not available 01/04/2024 Do You Have Smoke And Carbon Monoxide Detectors In Your Home? Yes Information not available 05/23/2024 Do You Use Sunscreen Routinely? Yes Information not available 05/23/2024 Has Tobacco Cessation Counseling Been Provided? No Information not available 05/23/2024 Sex: Female Functional Status Question Answer Note LastModified by Organizat ion Details LastModified Time Do you use any illicit or recreational drugs? No Information not available 05/23/2024 Do you or have you ever used any other forms of tobacco or nicotine? No Information not available 05/23/2024 What is your level of alcohol consumption? None Information not available 01/04/2024 Are you currently employed? No Information not available 05/23/2024 Are you able to care for yourself? Yes Information not available 01/04/2024 What is your exercise level? None Information not available 05/23/2024 Mental Status Question Answer Note LastModified by Organization D etails LastModified Time Do you feel stressed (tense, restless, nervous, or anxious, or unable to sleep at night)? [id number] Information not available 01/04/2024 Family History Relationship Description Onset Age of this Age Resolved Age Notes LastModified by Organization Details LastModified Time Father Heart disease [email or web address] Not available 2023 14:06:48 Father Hypertensive disorder [email or web address] Not available 2023 14:06:56 Brother Heart disease [email or web address] Not available 2023 14:06:48 Brother Hypertensive disorder [email or web address] Not available 2023 14:06:56 Mother Hypertensive disorder [email or web address] Not available 2023 14:06:56 Mother Osteoporosis apaytonma Not avai lable 01/04/2024 14:07:01 Medical History Condition Response Muscle, Joint, or Bone Problems Y Cancer Y Headaches Y Allergies Y Thyroid Problems Y GI Problems Y Gynecological History Statement/Question Response If Post Menopausal, Age at Menopause 50 Obstetrics History GPAL:G 3 P 3 0 0 3 Type Value Full Term 3 Living 3 Total 3 Past Encounters Encounter ID Performer Location Encounter Start Date Encounter Closed Date Diagnosis/Indication Diagnosis SNOMED-CT Code Diagnosis ICD10 Code Diagnosis Note [id number] GALE Mahan [address] [place] [address] 05/20/2020 10:58:27 05/22/2020 15:52:47 Suspected COVID-19 452695749 Z03.818 D/w pt the current pandemic of COVID-19 and call for social isolation in order to blunt the curve and minimize risk and spread. Encouraged patient and family to take restrictio ns seriously. They have verbalized understand ing of such. Viral syndrome 670899156 B34.9 Coronavirus infection 18 7234715 B34.2 [id number] Adolph Brown MD [facility] (Adult Med) [address] [place] [address] 01/04/2024 13:40:42 01/04/2024 14:30:16 Sinusitis 43203003 J32.9 Fatigue 32208617 R53.83 Thyroid nodule 770222013 E04.1 Screening for cardiovascular system disease 995325830 Z13.6 [id number]|2025-01-01 13:57:00|2025-01-01 13:57:00|XMS_ITS|BKG DAEMON|External Medical Summaries|[id number]|" Referral Summary Created on: January 01, 2025 Brooke Mcmanus : 1950 Sex: Female Author Organization [facility] Address [address] [place] [address] Care Team Providers Care Hospitalist Physician Name Role Phone Adolph Brown MD Primary Care Provider [phone] Bayron Francisco MD Unavailable [phone] Encounters Date Type Department Care Team Description 12/28/2024 Telephone [facility] Oncology [address] [place] [address] Leanne Massey 12/27/2024 10:45 AM CDT Office Visit [facility] Cardiology [address] [facility] [address], [address] [place] [address] Cornelius Maurice MD PhD Stenosis of celiac artery (Primary Dx); Follicular lymphoma of lymph nodes of multiple sites (HCC); Pericardial effusion 10/24/2024 Telephone [facility] [address] [facility] [address] [place] [address] [place] [address] Franchesca Del Valle 10/22/2024 Telephone [facility] [address] [facility] 8[address] [place] [address] [place] [address] Cornelius Maurice MD PhD from Last 3 Months Allergies Active Allergy Reactions Criticality Noted Date Comments Doxycycline Other (See comments) Low 04/14/2021 Nitrofurantoin Monohyd/M-Cryst Unknown 04/14 Other Nausea only Low 06/21/2006 mortrin Medications No known medications Active Problems Problem Noted Date Diagnosed Date Pericardial effusion 12/27/2024 Other constipation 05/02/2024 Diarrhea 05/02/2024 Stenosis of [...] on file Legal 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 Gender Identity Female 02/26/2019 6:25 AM CDT Sexual Orientation Straight 02/26/2019 6: 25 AM CDT Last Filed Vital Signs Vital Sign Reading Time Taken Comments Blood Pressure 144/82 12/27/2024 10:19 AM CDT Pulse 91 12/27/2024 10:19 AM CDT Temperature 36.1 C (97 F) 12/27/2024 10:19 AM CDT Respiratory Rate 17 12/27/2024 10:19 AM CDT Oxygen Saturation 98% 12/27/2024 10:19 AM CDT Inhaled Oxygen Concentration - - Weight 68 kg (150 lb) 12/27/2024 10:19 AM CDT Height 165.1 cm (5' 5 ) 12/27/2024 10:19 AM CDT Body Mass Index 24.96 12/27/2024 10:19 AM CDT Plan of Treatment Scheduled Procedures Name Priority Associated Diagnoses Date/Ti me COLONOSCOPY Open Access Other constipation Diarrhea, unspecified type Procedures Procedure Name Priority Date/Time Associated Diagnosis Comments SERUM HEPATITIS C AB Routine 10/30/2014 6:23 AM CDT from Last 3 Months or Most Recently Relevant to Health Maintenance Results * Serum Hepatitis C ab (10/30/2014 6:23 AM CDT) HCV ab Negative NEG HISTORICAL RESULTS Serum 10/30/2014 6:23 AM CDT Narrative HISTORICAL RESULTS - 10/30/2014 9:15 AM CDT {Testing performed by: [facility], [place] [address]} Interpretive Data If confirmation is required, call Laboratory Customer Service to request sample to be sent to [facility] for Hepatitis C Virus (HCV) RNA Detection and Quantitation by Real-Time Reverse High Density Finishing Operator-PCR (RT-PCR). Current interpretive data was [facility] revised on 2011 [facility] S Final Result HISTORICAL RESULTS from Last 3 Months or Most Recently Relevant to Health Maintenance Insurance MEDICARE BLUE CROSS MEDICARE SUPPLEMENT MEDICARE [facility] [employer] [facility] MEDICARE MEDICARE [facility] MEDICARE SUPPLEMENT Member Subscriber Plan / Payer (Ef fective 2013-Present) Name:Brooke Mcmanus Relation to Subscriber:Self Name:Brooke Mcmanus Payer ID:[id number] Type:COMMERCIAL Address: [facility] [id number] [place] [id number] Care Teams Hospitalist Physician Relationship Specialty Start Date End Date Adolph Brown MD PCP - General 11/29/16 Bayron Francisco MD [address] [facility] [address] [place] [address] Medical Oncologist/Upholstered Goods Crafter Medical Oncology 03/08/23 "
--- OUTSIDE RECORDS SUMMARY | 2025-01-01 13:57 | XMS_ITS | Clinical Summary ---
Author Organization [facility] al Address [address] [place] [address] Care Team Providers Care Consultant In Ergonomics And Safety Name Role Phone Don Brown MD Primary Care Provider [phone] Bayron Francisco MD Unavailable [phone] Allergies Active Allergy Reactions Criticality Noted Date [...] Type Department Care Team Description 12/28/2024 Telephone [facility] [address] [place] [address] Leanne Massey 12/27/2024 10:45 AM CDT Office Visit [facility] [address] [facility] [address], [address] [place] [address] Terence Pickett MD PhD Stenosis of celiac artery (Primary Dx); Follicular lymphoma of lymph nodes of multiple sites (HCC); Pericardial effusion 10/24/2024 Telephone [facility] [address] [facility] [address]th [place] [address] [place] [address] Franchesca Del Valle 10/22/2024 Telephone [facility] [address] [facility] 8th [place] [address] [place] [address] Terence Pickett MD PhD from Last 3 Months Surgical History Surgery Date Site/Laterality Comments IR FINE NEEDLE ASPIRATION W IMAGE GUIDANCE 10/30/2014 N/A TONSILLECTOMY/ADENOIDECTOMY TUBAL LIGATION SINUS SURGERY CHOLECYSTECTOMY KNEE SURGERY HYSTERECTOMY SKIN GRAFT Medical History Medical History Date Comments Cancer (HCC) Cataract Sinusitis HL (hearing loss) Family [...] on file 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 Gender Identity Female 02/26/2019 6:25 AM CDT [...] Assessment 1950 Osteoporosis Screening-Bone Density Scan 1950 DTaP/Tdap/Td Vaccine (1 - Tdap) 1959 Hepatitis B Screening 1966 Pneumococcal vaccine 65+ (1 of 2 - PCV) 1967 Zoster Vaccine (1 of 2) 1967 Well Visit 65+ 2013 Influenza Vaccine (Season Ended) 2025 Hepatitis C Screening Completed 10/30/2014, 015 Procedures [...] 10/30/2014 9:15 AM CDT {Testing performed by: [facility], [place] [address]} Interpretive Data If confirmation is required, call Laboratory Customer Service to request sample to be sent to [facility] for Hepatitis C Virus (HCV) RNA Detection and Quantitation by Real-Time Reverse Ultrasound Sonographer-PCR (RT-PCR). Current interpretive data was last revised on 2011 [facility]OD ORDERABLE S Final Result HISTORICAL RESULTS from Last 3 Months or Most Recently Relevant to Health Maintenance Insurance MEDICARE BLUE CROSS MEDICARE SUPPLEMENT MEDICARE [facility] PENDING S[facility] TO [facility] MEDICARE MEDICARE [facility] MEDICARE SUPPLEMENT Care Teams Consultant In Ergonomics And Safety Relationship Specialty Start Date End Date Don Brown MD PCP - General 11/29/16 Bayron Francisco MD [address] [facility] [address] [place] [address] Medical Oncologist/Disaster Recovery Consultant Medical Oncology 03/08/23
--- OUTSIDE RECORDS SUMMARY | 2025-01-01 13:57 | XMS_ITS ---
Author Organization [facility] al Address [address] [place] [address] Care Team Providers Care Pipe Fitter Supervisor Maintenance Name Role Phone Don Brown MD Primary Care Provider [phone] Bayron Francisco MD Unavailable [phone] Active Problems Problem Noted Date Diagnosed Date Pericardial effusion 12/27/2024 Other constipation 05/02/2024 Diarrhea 05/02/2024 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 Basal cell carcinoma of skin of other parts of f neema 08/23/2014 Overview (03/08/2023): Current Treatment and Therapy Plans No current plan information found. Past Treatment and Therapy Plans No past plan information found. Lifetime Dose Tracking * Chemical Lifetime Dose Automatic Entry Manual Entr y DLP 4,486 mGycm 4,486 mGycm 0 mGycm
--- OUTSIDE RECORDS SUMMARY | 2025-01-01 13:58 | XMS_ITS | Clinical Summary ---
Author Organization [facility] Address [address] [place] [address] Care Team Providers Care Production Supply Equipment Tender Name Role Phone Don Brown MD Primary Care Provider [phone] Source Comments [facility],non-owned Affiliates and Associated Physician Practices is amultiple site organization consisting of ambulatory clinics and hospital sitesin [place], [place], [place] and [place]. This disclosure is being madepursuant to the Care Everywhere program and may not contain all information available regarding this patient. Last updated 18.[facility] Allergies Active Allergy Reactions Criticality Noted Date Comments Nsaids 09/18/2014 Pt to avoid all nsaid products Medications * Be aware that medications may not be up to date on this document. Alwaysverify current medications with the patient. omeprazole EC (PRILOSEC OTC) 20 MG tablet Take 40 mg by mouth daily before breakfast. Active docusate calcium (SURFAK) 240 MG capsule Take 240 mg by mouth once daily. Active Senna, Sennosides, POWD Use 4 Tabs once daily. Active hydrocodone-acet aminophen (NORCO) 5-325 MG tablet Take 1 Tab [...] = 0.6 oz pur e alcohol) Comments No Sex and Gender Information Value Date Recorded Sex Assigned at Not on file Legal Sex Female 2:27 PM OPS MANAGER Gender Identity Not on file Sexual Orientation Not on file Last Filed Vital Signs Vital Sign Reading Time Taken Comments Blood Pressure 134/74 03/07/2015 1:28 PM CDT Pulse 80 03/07/2015 1:28 PM CDT Temperature 36.5 C (97.7 F) 03/07/2015 1:28 PM CDT Respiratory Rate 16 09/19/2014 11:12 AM OPS MANAGER Oxygen Saturation 97% 09/19/2014 11:12 AM OPS MANAGER Inhaled Oxygen Concentration - - Weight 83.9 kg (185 lb) 03/07/2015 1:28 PM CDT Height 165.1 cm (5' 5 ) 03/07/2015 1:28 PM CDT Body Mass Index 30.79 03/07/2015 1:28 PM CDT Plan of Treatment Health Maintenance Due Date Last Done Comments BONE DENSITY TESTING 1950 HEPATITIS C SCREENING 04/17/1966 DTAP/TDAP/TD VACCINES (1 - Tdap) 1967 PNEUMOCOCCAL VACCINE 50+ (1 of 1 - PCV) 1998 ZOSTER VACCINE (1 of 2) 1998 Respiratory Syncytial Virus (RSV) Vaccine Pt: or over 60 yrs (1 - 1-dose 75+ series) 2023 COVID-19 VACCINE (1 - 2023-2 5 season) 2024 DEPRESSION SCREENING 08/22/2024 INFLUENZA VACCINE (Season Ended) 2025 HEPATITIS B VACCINE Aged Out No longe r eligible based on patient's age to complete this topic HIB VACCINE Aged Out No longer eligi ble based on patient's age to complete this topic HPV VACCINE Aged Out No longer eligi ble based on patient's age to complete this topic MENINGOCOCCAL (Group B) VACC INE SHARED DECISION-MAKING Aged Out No longer eligibl e based on patient's age to complete this topic MENINGOCOCCAL GROUPS A/C/Y/W VACCINE Aged Out No longer eligible b ased on patient's age to complete this topic Insurance MEDICARE ANTH Care Teams Production Supply Equipment Tender Relationship Specialty Start Date End Date Don Brown MD PCP - General Internal Medicine 08/23/14
--- OUTSIDE RECORDS SUMMARY | 2025-01-01 13:58 | XMS_ITS | Data Portability ---
Author Organization [place] [facility] [employer], Main Office Address [address] [place] [address] Care Team Providers Care Mast Maker Name Role Phone ADOLPH BROWN Primary Care Provider [phone] ADOLPH BRONW Referring Provider Assessment Encounter Date Assessment Date Assessment LastModified by Organization Details LastModified Time 02/21/2023 02/21/2023 mawv portion completed by Kaleb Valiente RN under supervision of Dr Brown wellness concluded including advance care planning blood work has been discussed she will continue current therapy and will follow-up with me in 4 months [email or web address] Not available 03/05/2023 16:29:26 02/24/2023 02/24/2023 Patient returns. She had cortisone shots in both knees 3 months ago and they did help her great deal. Her pain has been coming back over the last couple of weeks. She has severe lateral compartment osteoarthritis in both knees with 13 anatomic axis valgus deformity on the right 19 anatomic axis valgus deformity on the left on the individual standing AP Stork views. 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 On exam today she has valgus alignment of both knees. Minimal trace effusion bilaterally. I have discussed that she may develop attenuation of her medial collateral ligament particularly on the left side due to the valgus deformity. She would like cortisone shots today. Risk of side effects including risk of infection discussed. After ChloraPrep prep, 20 mg of Kenalog and 4 cc of 0.5% ropivacaine were injected into each knee without difficulty. I will see her back in 3 months to assess her progress. Not available 02/24/2023 11:24:38 05/26/2023 05/26/2023 patient returns. She had cortisone shots in both knees 3 months ago. She has severe lateral compartment osteoarthritis in both knees which is very advanced on left knee. She cortisone shot 3 months ago which helped again. She would like cortisone shots again today. 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 On exam she is valgus alignment both knees a little bit more pronounced than left and there was a 5 degree flexion contracture also on left. Trace effusion bilaterally. Risk of side effects including risk infection were discussed with her. After ChloraPrep prep, 20 mg of Kenalog and 4 cc of 0.5% ropivacaine were injected into each knee without difficulty. I will see her back in 3 months assess her progress. Not available 05/26/2023 13:20:01 06/28/2023 06/28/2023 Continue current therapy Ceftin for her sinuses follow-up 6 months [email or web address] Not available 06/29/2023 23:04:06 08/25/2023 08/25/2023 Impression: Patient has lateral compartment osteoarthritis in both knees with valgus deformities worse on the left than on the right. She wants to proceed with knee replacement surgery but cannot because she has to be available for her is quite ill. She would like cortisone shots in both knees today. Risk of side effects including risk of infection discussed. After ChloraPrep prep, 20 mg of Kenalog and 4 cc of 0.5% ropivacaine were injected in both knees of difficulty. I will see her back in 3 months to assess her progress. Not available 09/11/2023 18:07:45 Plan of Treatment Reminders Order Date Submit Date Provider Last Modified By Organization Details Last Modified Time Details Appointments None recorded. Lab None recorded. Referral None recorded. Procedures injection/a spiration joint/bursa (PROC) - in office procedure, administere d by provider 2023 024 [email or web address] In-Office Order, Internal Use Only DO Not Attach Compendium DO Not Attach Compendium, Do Not Delete/merge, [id number] 11:29:10 injection/a spiration joint/bursa (PROC) - in office procedure, administere d by provider 2022 023 [email or web address] In-Office Order, Internal Use Only DO Not Attach Compendium DO Not Attach Compendium, Do Not Delete/merge, [id number] 11:05:04 injection/a spiration joint/bursa (PROC) - in office procedure, administere d by provider 2022 023 [email or web address] In-Office Order, Internal Use Only DO Not Attach Compendium DO Not Attach Compendium, Do Not Delete/merge, [id number] 11:08:34 Surgeries None recorded. Imaging XR, knee 2023 024 [email or web address] [facility], [address] [place] [address], [phone], 4 14:38:09 Medication Orders Kenalog 10 mg/mL suspension for injection [address] [facility] [address] [facility], [address] [place] [address], [id number], 4 14:49:53 ropivacaine (PF) 5 mg/mL (0.5 %) injection solution [address] [facility], [address] [place] [address], [address], 4 14:49:53 cefuroxime axetil 500 mg tablet 2022 023 [email or web address] [facility], [address] [place] [address], [id number], 4 11:25:41 Kenalog 10 mg/mL suspension for injection 2022 023 [email or web address] [facility], [address] [place] [address], [address], 4 11:25:44 ropivacaine (PF) 5 mg/mL (0.5 %) injection solution 2022 023 [email or web address] [facility], [address] [place] [address], [id number], 4 11:25:46 Kenalog 10 mg/mL suspension for injection 2022 023 [email or web address] [facility], [address] [place] [address], [address], 4 11:25:44 ropivacaine (PF) 5 mg/mL (0.5 %) injection solution [address] [facility], [address] [place] [address], [address], 11:25:46 Patient TargetsNo targets recorded. Patient Instructions Encounter Date Encounter Id Patient Instructions Last Modified By Organization Details Last Modified Time 02/21/2023 [id number] dementia rating scale-2* [email or web address] Not available 03/05/2023 16:29:49 alcohol misuse* [email or web address] Not available 03/05/2023 16:29:49 depression screening* [email or web address] Not available 03/05/2023 16:29:49 multi-dimensiona l health assessment questionnaire* [email or web address] Not available 03/05/2023 16:29:49 care plan* [email or web address] Not available 03/05 16:29:49 advance directiv es: care instructions [email or web address] Not available 03/05/2023 16:29:49 advance care planning: care instructions [email or web address] Not available 03/05/2023 16:29:49 [place] Advance Directives [email or web address] Not available 03/05/2023 16:29:49 Personalized a lt Plan and Screening Recommendations Advance Directives - Do you have one? No You have indicated that you are capable of preparing your advance care directive Advance Directives - Do we have your advance directive on file in your health record? No, please bring in a copy at your earliest convenience Primary Prevention/Interven tion (prevents or decreases the chance of common diseases from occurring) Smoking Risk: Non Smoker Alcohol Misuse Screening: Negative Weight: Appropriate Overwei ght continue your current weight loss efforts try to lose 5% of your body weight try to lose 10% of your body weight Physical activity: Appropriate physical activity minimum of 10-20 minutes of activity that causes mild breathlessness/day minimum of 20-30 minutes activity that causes mild breathlessness/day Nutrition: Good Average Refer to attached handout Heart-Healthy Diet: After Your Visit Fall Risk (screened today): Low Refer to attached handout Preventing Falls: After your Visit Vaccines Pneumococcal: Ordered Recommended today Recommended today, but you have declined Influenza: Ordered Recommended today Recommended today, but you have declined Chronic Disease Risks Stroke: Low Risk I have no recommendations Heart Attack: Low risk I have no recommendations Clogging of the Arteries: Low risk I have no recommendations Diabetes: Low Risk I have no recommendations Secondary Prevention/Interven tion (detects treatable diseases before they may cause symptoms, disability, or ) Breast Cancer Screening with mammogram: Your next mammogram: Ordered Recommended today Recommended today, but you have declined Cervical/Uterine/Ov travis Cancer Screening: Your next PAP/pelvic in: Referral to bowling ball patcher Recomm ended today Recommended today, but you have declined Osteoporosis Screening: Your next DEXA in: Ordered Recomme nded today Recommended today, but you have declined Date Screening Last Performed: Colon Cancer Screening: Colonoscopy In: Ordered Recomme nded Date Screening Last Performed: Eye Disease Screening: Dementia Risk: Low I have no recommendations Depression Screening: Negative [email or web address] Not available 02/21/2023 14:59:52 Reason for Referral None Reported. Results Created Date Observation Date Name Description Value Unit Range Abnormal Flag Note LastModifiedBy Organization Detail LastModifiedTime 02/22/20 23 02/21/2023 CBC/C OMPLE TE BLD COUNT W/DIF F white blood cells 5.5 x10'3 /uL 4.2-10 .8 Not Available [facility] (Lab) [address] [place], [address], 02/21/2023 15:45:54 02/22/20 23 02/21/2023 CBC/C OMPLE TE BLD COUNT W/DIF F red blood cells 3.98 x10'6 /uL 3.80-5 .20 Not Available [facility] (Lab) [address] [place], [address], 02/21/2023 15:45:54 02/22/20 23 02/21/2023 CBC/C OMPLE TE BLD COUNT W/DIF F hemoglobin 11.9 g/dL 12.0-1 5.6 low Not Available [facility] (Lab) [address] [facility] [place], [address], 02/21/2023 15:45:54 02/22/20 23 02/21/2023 CBC/C OMPLE TE BLD COUNT W/DIF F hematocrit 37.4 % 35.7-4 5.7 Not Available [facility] (Lab) [address] [place], [address], 02/21/2023 15:45:54 02/22/20 23 02/21/2023 CBC/C OMPLE TE BLD COUNT W/DIF F mean red cell volume 94.0 fL 82.0-9 9.0 Not Available [facility] (Lab) [address] [place], [address], 02/21/2023 15:45:54 02/22/20 23 02/21/2023 CBC/C OMPLE TE BLD COUNT W/DIF F mean red cell hemoglobin 29.9 pg 27.0-3 3.0 Not Available [facility] (Lab) [address] [place], [address], 02/21/2023 15:45:54 02/22/20 23 02/21/2023 CBC/C OMPLE TE BLD COUNT W/DIF F mean RBC HGB concentratio n 31.8 g/dL 31.0-3 6.0 Not Available [facility] (Lab) [address] [place], [address], 02/21/2023 15:45:54 07/03/02/21/2023 CBC/C OMPLE TE BLD COUNT W/DIF F red cell distribution width 13.7 % 11.8-1 5.5 Not Available [facility] (Lab) [address] [place], [address], 02/21/2023 15:45:54 02/22/20 23 02/21/2023 CBC/C OMPLE TE BLD COUNT W/DIF F platelets 224 x10'3 /uL 150-40 0 Not Available [facility] (Lab) [address] [place], [address], 02/21/2023 15:45:54 02/22/20 23 02/21/2023 CBC/C OMPLE TE BLD COUNT W/DIF F mean platelet volume 9.0 fL 9.0-12 .4 Not Available [facility] (Lab) [address] [place], [address], 02/21/2023 15:45:54 02/22/20 23 02/21/2023 CBC/C OMPLE TE BLD COUNT W/DIF F neutrophils 56.4 % 39.0-7 2.0 Not Available [facility] (Lab) [address] [place], [address], 02/21/2023 15:45:54 02/22/20 23 02/21/2023 CBC/C OMPLE TE BLD COUNT W/DIF F lymphocytes 27.0 % 16.0-4 7.0 Not Available [facility] (Lab) [address] [place], [address], 02/21/2023 15:45:54 02/22/20 23 02/21/2023 CBC/C OMPLE TE BLD COUNT W/DIF F monocytes 10.3 % 5.0-12 .0 Not Available [facility] (Lab) [address] [place], [address], 02/21/2023 15:45:54 07/03/02/21/2023 CBC/C OMPLE TE BLD COUNT W/DIF F eosinophils 5.4 % 1.0-7. 0 Not Available [facility] (Lab) [address] [place], [address], 02/21/2023 15:45:54 02/22/20 23 02/21/2023 CBC/C OMPLE TE BLD COUNT W/DIF F basophils 0.7 % 0.0-2. 0 Not Available [facility] (Lab) [address] [place], [address], 02/21/2023 15:45:54 02/22/2002/21/2023 CBC/C OMPLE TE BLD COUNT W/DIF F immature granulocytes 0.2 % 0.00-0 .50 Not Available [facility] (Lab) [address] [place], [address], 02/21/2023 15:45:54 02/22/20 23 02/21/2023 CBC/C OMPLE TE BLD COUNT W/DIF F neutrophils, absolute count 3.10 x10'3 /uL 1.5-8. 0 Not Available [facility] (Lab) [address] [place], [address], 02/21/2023 15:45:54 02/22/20 23 02/21/2023 CBC/C OMPLE TE BLD COUNT W/DIF F lymphocytes, absolute count 1.49 x10'3 /uL 1.07-3 .43 Not Available [facility] (Lab) [address] [place], [address], 02/21/2023 15:45:54 02/22/2002/21/2023 CBC/C OMPLE TE BLD COUNT W/DIF F monocytes, absolute count 0.57 x10'3 /uL 0.29-0 .99 Not Available [facility] (Lab) [address] [place], [address], 02/21/2023 15:45:54 02/22/20 23 02/21/2023 CBC/C OMPLE TE BLD COUNT W/DIF F eosinophils, absolute count 0.30 x10'3 /uL 0.02-0 .53 Not Available [facility] (Lab) [address] [place], [address], 02/21/2023 15:45:54 02/22/20 23 02/21/2023 CBC/C OMPLE TE BLD COUNT W/DIF F basophils, absolute count 0.04 x10'3 /uL 0.01-0 .08 Not Available [facility] (Lab) [address] [place], [address], 02/21/2023 15:45:54 02/22/20 23 02/21/2023 CBC/C OMPLE TE BLD COUNT W/DIF F immature granulocytes ,absolute 0.01 x10'3 /uL 0.00-0 .05 Not Available [facility] (Lab) [address] [place], [address], 02/21/2023 15:45:54 02/22/20 23 02/21/2023 CBC/C OMPLE TE BLD COUNT W/DIF F nucleated red blood cells 0.0 % -0 Not Available [facility] (Lab) [address] [place], [address], 02/21/2023 15:45:54 02/22/20 23 02/21/2023 CBC/C OMPLE TE BLD COUNT W/DIF F NRBC# 0.00 x10'3 /uL Not Available [facility] (Lab) [address] [place], [address], 02/21/2023 15:45:54 02/22/20 23 02/21/2023 COMPR EHENS KATHARINE METAB OLIC PANEL sodium 138 mmol/ L 137-14 5 Not Available [facility] (Lab) [address] [place], [address], 02/21/2023 16:02:32 02/22/20 23 02/21/2023 COMPR EHENS KATHARINE METAB OLIC PANEL potassium 4.0 mmol/ L 3.5-5. 1 Not Available [facility] (Lab) [address] [place], [address], 02/21/2023 16:02:32 02/22/20 23 02/21/2023 COMPR EHENS KATHARINE METAB OLIC PANEL chloride 100 mmol/ L 98-107 Not Available [facility] (Lab) [address] [place], [address], 02/21/2023 16:02:32 02/22/20 23 02/21/2023 COMPR EHENS KATHARINE METAB OLIC PANEL carbon dioxide 29 mmol/ L 22-30 Not Available [facility] (Lab) [address] [place], [address], 02/21/2023 16:02:32 02/22/20 23 02/21/2023 COMPR EHENS KATHARINE METAB OLIC PANEL anion gap 13.0 mmol/ L 14-22 low Not Available [facility] (Lab) [address] [place], [address], 02/21/2023 16:02:32 02/22/20 23 02/21/2023 COMPR EHENS KATHARINE METAB OLIC PANEL glucose 101 mg/dL 70-99 high Not Available [facility] (Lab) [address] [place], [address], 02/21/2023 16:02:32 02/22/20 23 02/21/2023 COMPR EHENS KATHARINE METAB OLIC PANEL BUN 12 mg/dL 8-19 Not Available [facility] (Lab) [address] [place], [address], 02/21/2023 16:02:32 02/22/20 23 02/21/2023 COMPR EHENS KATHARINE METAB OLIC PANEL creatinine 0.60 mg/dL 0.66-1 .25 low Not Available [facility] (Lab) [address] [place], [address], 02/21/2023 16:02:32 02/22/20 23 02/21/2023 COMPR EHENS KATHARINE METAB OLIC PANEL GFR >60 Refer ence Range : [place] ge GFR Healt hy Adult : >60 mL/mi n/1.7 3 m2 Chron ic Kidne y Disea se: 15-60 mL/mi n/1.7 3 m2 Kidne y Failu re: <15/m L/min /1.73 m2 www.n iddk. nih.g ov The MDRD study equat ion has not been valid ated in child ta <18 years of age; pregn ant women ; the elder ly >85 years of age; or in some racia l or ethni c subgr oups, such as Hispa nics. Outsi de the valid ated camila eters , estim ated GFR is less accur ate, requi ring clini gabriela judgm ent on a case- by-ca se basis . Clini gabriela inter preta tion for other races and ages must be made by the clini juno. The MDRD study equat ion has not been valid ated for the evalu ation of serum creat inine relat ed to nutri simone l statu s or medic ation usage . For perso ns <18 years of age, a pedia tric GFR calcu lator is avail able on the [facility] websi te: https :[email or web address] macdonald.claire ludwig/pr ofess ional s/kdo qi/gf r_cal culat or Not Available [facility] (Lab) [address] [place], [address], 02/21/2023 16:02:32 02/22/20 23 02/21/2023 COMPR EHENS KATHARINE METAB OLIC PANEL alkaline phosphatase 60 U/L 38-126 Not Available [facility] (Lab) [address] [place], [address], 02/21/2023 16:02:32 02/22/20 23 02/21/2023 COMPR EHENS KATHARINE METAB OLIC PANEL alanine aminotransfe rase 21 U/L 0-35 Not Available [facility] (Lab) [address] [place], [address], 02/21/2023 16:02:32 02/22/20 23 02/21/2023 COMPR EHENS KATHARINE METAB OLIC PANEL aspartate aminotransfe rase 27 U/L 15-37 Not Available [facility] (Lab) [address] [place], [address], 02/21/2023 16:02:32 02/22/20 23 02/21/2023 COMPR EHENS KATHARINE METAB OLIC PANEL bilirubin, total 0.30 mg/dL 0.20-1 .30 Not Available [facility] (Lab) [address] [place], [address], 02/21/2023 16:02:32 02/22/20 23 02/21/2023 COMPR EHENS KATHARINE METAB OLIC PANEL calcium 9.3 mg/dL 8.4-10 .2 Not Available [facility] (Lab) [address] [place], [address], 02/21/2023 16:02:32 02/22/20 23 02/21/2023 COMPR EHENS KATHARINE METAB OLIC PANEL total protein 6.6 g/dL 6.3-8. 2 Not Available [facility] (Lab) [address] [place], [address], 02/21/2023 16:02:32 02/22/20 23 02/21/2023 COMPR EHENS KATHARINE METAB OLIC PANEL albumin 4.3 g/dL 3.0-4. 4 Not Available [facility] (Lab) [address] [place], [address], 02/21/2023 16:02:32 02/22/20 23 02/21/2023 COMPR EHENS KATHARINE METAB OLIC PANEL globulin 2.3 g/dL 2.6-4. 2 low Not Available [facility] (Lab) [address] [place], [address], 02/21/2023 16:02:32 02/22/20 23 02/21/2023 COMPR EHENS KATHARINE METAB OLIC PANEL A/G ratio 1.9 ratio 1.0-2. 0 Not Available [facility] (Lab) [address] [place], [address], 02/21/2023 16:02:32 02/22/20 23 02/21/2023 LIPID PANEL cholesterol 239 mg/dL 140-19 9 [facility] NSUS RECOM MENDA TION FOR SAMANTHA STERO L: ADULT CHILD LOW RISK: <200 <170 BORDE RLINE : <200- 239 ----- HIGH RISK: >240 >200 Not Available [facility] (Lab) [address] [place], [address], 02/21/2023 16:02:35 02/22/20 23 02/21/2023 LIPID PANEL triglyceride s 105 mg/dL 0-150 [facility] NSUS REPOR T RECOM MENDA TION FOR TRIGL YCERI BHARATHI: ADULT CHILD LOW RISK: <150 ----- BODER LINE: 150-1 99 ----- HIGH RISK: >200 ----- Not Available [facility] (Lab) [address] [place], [address], 02/21/2023 16:02:35 02/22/20 23 02/21/2023 LIPID PANEL HDL cholesterol 98 mg/dL 40- Not Available [facility] (Lab) [address] [place], [address], 02/21/2023 16:02:35 02/22/20 23 02/21/2023 LIPID PANEL LDL cholesterol, calculated 120 mg/dL 0-130 [facility] B[facility] NSUS REPOR T RECOM MENDA TIONS FOR LDL: ADULT CHILD LOW RISK <130 <110 (OPTI MAL LDL) <100 ----- BORDE RLINE : 130-1 59 ----- HIGH RISK: >160 >130 A TRIGL YCERI DE RESUL T >400 INVAL IDATE S THE CALCU LATIO N FOR LDL FRACT IONAT ION - THE LDL RESUL T WILL NOT BE REPOR JUSTIN. Not Available [facility] (Lab) [address] [place], [address], 02/21/2023 16:02:35 02/22/20 23 02/21/2023 T3 FREE free T3 2.7 pg/mL 2.77-5 .27 low Not Available [facility] (Lab) [address] [place], [address], 02/21/2023 16:26:15 02/22/20 23 02/21/2023 T4 FREE free T4 1.23 NG/dL 0.78-2 .19 Not Available [facility] (Lab) [address] [place], [address], 02/21/2023 16:26:19 02/22/20 23 02/21/2023 TSH thyroid-stim ulating hormone 2.710 uIU/m L 0.465- 4.680 Not Available [facility] (Lab) [address] [place], [address], 02/21/2023 16:27:16 08/25/19 24 XR, knee No observ ation record ed. [email or web address] [facility] [address] [facility], [place], [address], 09/11/2023 18:06:50 Result Notes None recorded. 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 Not Available [facility] 3 06:12:43 Abdominal pain 61115648 Active Not Available [facility] 3 06:12:43 Gastroesop hageal reflux disease 261983334 Active Not Available [facility] 3 06:12:43 Chest pain 62352191 Active Not Available [facility] 3 06:12:43 Sinusitis 44429486 Active Not Available [facility] 3 06:12:43 Diverticul ar disease of colon 336940947 Active [facility] 3 06:12:43 Chronic sinusitis 17525208 Active 2022 Not Available [facility] 3 06:12:43 Exostosis 549803464 Active Not Available [facility] 3 06:12:43 Pain of left knee joint 3487859229143 07 Active 2022 Not Available [facility] 3 06:12:43 Dysuria 13048861 Active 2021 Not Available [facility] 3 06:12:43 Cough 19429051 Active Not Available [facility] 3 06:12:43 Upper respirator y infection 48736174 Active 2021 Not Available [facility] 3 06:12:43 Urinary tract infectious disease 90165243 Active 2021 Not Available [facility] 3 06:12:43 Candidiasi s of vagina 60283339 Active 2021 Not Available [facility] 3 06:12:43 Nodule of lung 941395741 Active 2021 Not Available [facility] 3 06:12:43 Chronic rhinitis 98146944 Active Not Available [facility] 3 06:12:43 Disorder of skin 54694946 Active Not Available [facility] 3 06:12:43 Bilateral osteoarthr itis of knees 8365762107006 07 Active 2022 Not Available [facility] 3 06:12:43 Acute sinusitis 79121020 Active 2022 Not Available [facility] 06:12:43 Problem Notes None recorded. Procedures Surgical History Date Name Laterality Status Provider Name and Address Organization Details Recorded Time 02/22/20 Medicare Wellness CPT Code, subsequent completed Loli Valiente RN [facility] 02/21/2023 14:48:01 02/22/20 23 Advanced Care Planning completed Loli Valiente RN [facility] 02/21/2023 14:52:29 12/02/19 18 Date of Last Colonoscopy completed Not Available [facility] 10/20/2022 14:56:00 08/05/20 10 Most Recent Bone Density completed Not Available [facility] 10/20/2022 14:56:00 Knee Surgery completed Not Available [facility] 10/20/2022 14:56:01 Tubal Ligation completed Not Available [facility] 10/20/2022 14:56:01 repair of heart completed Not Available [facility] 10/20/2022 14:56:01 tonsilectomy/adeno ids completed Not Available [facility] 10/20/2022 14:56:01 mohs surgery completed Not Available [facility] 10/20/2022 14:56:01 Cholecystectomy completed Not Available [facility] 10/20/2022 14:56:01 Hysterectomy completed Not Available [facility] 10/20/2022 14:56:01 Sinus Surgery completed Not Available [facility] 10/20/2022 14:56:01 Imaging Results Imaging Date Name Status LastModified by Organiz ation Details LastModified Time 08/25/2023 XR, knee completed [email or web address] [facility] [address], [place], [address], 09/11/2023 18:06:50 Procedure Notes None recorded. Medical Equipment None Reported. Allergies Allergen ID Allergen Name Allergen Category Reaction Reaction Severity Criticality Documentation Date Start Date Code Code System Note Provider Name and Address Organization Details Recorded Time 20918 Macrobid medicatio n Not available Not available Not available 10/20/20222020 87048 1 RxNorm cause s yeast infec tion Not Available [facility] 3 15:02:09 30318 doxycycli ne Not available other Not available Not available 10/20/20222020 3640 RxNorm cause s yeast infec tion Not Available [facility] 3 15:02:09 Medications Name Sig Start Date Stop Date Status Note LastModified by Organization Details LastModified Time fluconazole 100 mg tablet TAKE 1 TABLET BY MOUTH ONCE DAILY active Not Available Not Available No t Available prednisone 10 mg tablet Take by oral route. take [id number], [id number],1 x2days active Not Available Not Available No t Available doxycycline hyclate 100 mg capsule Take 1 capsule twice a day by oral route for 10 days. active Not Available Not Available No t Available fluconazole 150 mg tablet Take 1 tablet every day by oral route for 3 days. 11/25 completed Not Available Not Available Not Available hydrocodone 5 mg-acetamin ophen 325 mg tablet active Not Available Not Available No t Available meloxicam 15 mg tablet Take 1 tablet every day by oral route. active Not Available Not Available No t Available Zithromax Z-Tab 250 mg tablet Take 2 TABLEts the first day then 1/day active Not Available Not Available No t Available ciprofloxac in 250 mg tablet Take 1 tablet twice a day by oral route for 7 days. 06/02 completed Not Available Not Available Not Available prochlorper azine maleate 10 mg tablet 04/07 completed Not Available Not Available Not Available acyclovir 400 mg tablet 05/21 completed Not Available Not Available Not Available ciprofloxac in 500 mg tablet Take 1 tablet twice a day by oral route. 09/03 completed Not Available Not Available Not Available omeprazole 40 mg capsule,del ayed release TAKE 1 CAPSULE DAILY active Not Available Not Available No t Available Kenalog 10 mg/mL suspension for injection in office 2023 active [facility]: [id number]- [id number] Not Available Not Available Not Available cephalexin 500 mg capsule Take 1 capsule every 8 hours by oral route for 7 days. active Not Available Not Available No t Available pantoprazol e 40 mg tablet,rama yed release active Not Available Not Available Not Available montelukast 10 mg tablet TAKE ONE TABLET DAILY 10/13 completed Not Available Not Available Not Available lorazepam 1 mg tablet 04/07 completed Not Available Not Available Not Available cefuroxime axetil 500 mg tablet TAKE 1 TABLET BY MOUTH TWICE DAILY FOR 21 DAYS active Not Available Not Available No t Available cefdinir 300 mg capsule Take 1 capsule every 12 hours by oral route for 7 days. active Not Available Not Available No t Available fluticasone propionate 50 mcg/actuati on nasal spray,suspe nsion [place] 2 sprays every day by intranasa l route in the evening. active Not Available Not Available No t Available neomycin 3.5 mg/g-polymy delbert B 10,000 unit/g-dexa meth 0.1 % eye oint 06/05 completed Not Available Not Available Not Available Bactrim DS 800 mg-160 mg tablet Take 1 tablet twice a day by oral route for 10 days. 08/10 completed Not Available Not Available Not Available nitrofurant oin monohydrate /macrocryst als 100 mg capsule Take 1 capsule twice a day by oral route. 05/08 completed Not Available Not Available Not Available Stool Softener 05/08 completed Not Available Not Available Not Available ropivacaine (PF) 5 mg/mL (0.5 %) injection solution in office 2023 active Not Available Not Available Not Avai lable Vitals Date Recorded Body height Body mass index (BMI) [id number]|2025-01-03 00:42:00|2025-01-03 00:42:00|XMS_ITS|ONEYDA SALVADOR|External Medical Summaries|[id number]|" Encounter Summary Created on: January 03, 2025 Libertad Graham : 12/30/1951 Sex: Female Author Organization [facility] Address [address] [place] [address] Care Team Providers Care Mast Maker Name Role Phone Saud Lozano MD Primary Care Provider [phone] Manisha Cunha MD Unavailable [phone] Manisha Cunha MD Primary Care Provider + [phone] Nathan Shipman PA-C Primary Care Provider [phone] M[facility] Primary Care Provider + Misa [facility] Primary Care Provider + Amelia Palma MD Primary Care Provider [phone] Encounter Details Date Type Department Care Team (Late Contact Info) Description 04/10/2018 Abstract [facility] CONVERSION [address] [place] [address] , Generic Conversion, Social History Tobacco Use Types Packs/Day Years Used Date Smoking Tobacco: Never Comments Unknown Sex and Gender Information Value Date Recorded Sex Assigned at Female 10/22/2024 1:23 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 [place] [address] documented as of this encounter Visit Diagnoses Not on filedocumented in this encounter Care Teams Mast Maker Relationship Specialty Start Date End Date Saud Lozano MD PCP - General 06/20/14 09/17/18 Manisha Cunha MD PCP - Med Group - [facility] Attributed Provider INTERNAL MEDICINE 10/20/18 08/22/20 Manisha Cunha MD PCP - General INTERNAL MEDICINE 03/26/19 12/31/19 Nathan Shipman PA-C PCP - General PHYSICIAN PATIENT RELATIONS COORDINATOR 01/01/20 01/23/24 Misa Jerome, [facility]- [address], [address] [place] [address] PCP - General Nurse Practitioner Family 01/25/24 10/17/24 Misa Jerome, [facility]- [address], [address] [place] [address] PCP - General Nurse Practitioner Family 01/24/24 01/24/24 [place] [address] [place] [address] PCP - General FAMILY PRACTICE 10/18/24 documented as of this encounter "
[2025-01-01 15:27] LABS: Basophils Percent Auto 0.8 % (0.2-1.2); Eosinophils Absolute Auto 0.2 K/mm3 (0-0.3); Eosinophils Percent Auto 3.8 % (0-4.4); Hematocrit 36.7 % (37.0-47.0); Hemoglobin 11.3 g/dL (12.0-15.0); Immature Granulocyte Absolute 0.01 K/mm3 (0.00-0.031); Immature Granulocyte Percent A 0.2 % (0-0.5); Lymphocytes Absolute Auto 1.58 K/mm3 (0.9-3.2); Lymphocytes Percent Auto 31.3 % (18.3-44.2); Mean Corpuscular HGB Conc 30.8 g/dl (32-36); Mean Corpuscular Hemoglobin 28.5 pg (26-34); Mean Corpuscular Volume 92.7 fl (80-100); Mean Platelet Volume 8.8 fl (7.4-10.4); Monocytes Absolute Auto 0.5 K/mm3 (0.1-0.6); Monocytes Percent Auto 9.3 % (2.6-8.5); Neutrophils Absolute Auto 2.8 K/mm3 (1.3-6.7); Neutrophils Percent Auto 54.6 % (45.5-73.1); Platelet Count Result 200 k/mm3 (150-375); Red Blood Count 3.96 M/mm3 (4.2-5.4); Red Cell Distribution Width 14.6 % (11.5-14.5)
[2025-01-01 15:39] LABS: Albumin Level 4.1 g/dL (3.5-5.1); Anion Gap 5 mmol/L (4-12); Blood Urea Nitrogen 11 mg/dL (7-17); Calcium 8.5 mg/dL (8.4-10.2); Carbon Dioxide 30 mmol/L (22-30); Chloride 103 mmol/L (98-107); Estimated Glomerular Filt Rate > 60; Glucose 150 mg/dL (65-110); Potassium 3.8 mmol/L (3.4-5.0); Sodium 138 mmol/L (137-145)
[2025-01-01 15:49] LABS: Urine Cotinine NEGATIVE
[2025-01-01 17:43] LABS: Hemoglobin A1C 5.5 % (<5.7)
== END 2025-01-01 13:39 | disposition home or self-care (01) ==
LOC: ANHSURGERY 13:44
PROVIDERS: PCP Internal Medicine; Visit Provider Orthopaedic Surgery
DX: Z01.818 Encounter for other preprocedural examination (principal); M17.11 Unilateral primary osteoarthritis, right knee
CPT/HCPCS: 80048; 80307; 82040; 83036; 85025; 87081

== ENCOUNTER 2025-01-24 03:05 | Day surgery (SDC) | payer MEDICARE, SELFPAY ==
--- NOTE | 2025-01-01 14:04 | PC.NURSE ---
Report to the Outpatient Waiting Room, entrance under the green pavilion located off [facility], at time ___6:00AM____ on date ___01/24/25____. Planned Procedure Time: ___7:30AM .? Time changes happen often and if your time is changed the preop area will call you the afternoon before. - You and your visitor will be asked to self-screen and do not enter if you have any COVID symptoms. Please call surgeon if you need to reschedule. - A mask is optional within the hospital at this time. Patients may have clear liquids (water, carbonated beverages, clear teas, apple juice) until 3 hours prior to surgery (4:30AM) with a maximum of 20 ounces. - No food from midnight until time of surgery and no smoking, or chewing tobacco (or any form of nicotine). No chewing gum, candy or mints. Take only the following medications with a SIP of water on the morning of surgery: NONE DO NOT STOP ANY OF YOUR OTHER PRESCRIPTION MEDICATIONS PRIOR TO SURGERY EXCEPT THE FOLLOWING Hold all vitamins and supplements for 3 days per anesthesiologist. Medications to discontinue per physician NONE Date to take last dose Please no make-up, nail armenian, hairspray, perfume, deodorant, or body powder the day of surgery.? No jewelry (including any body piercings) or valuables the day of surgery, leave them at home.? Please take a shower or bath the night before, or the morning of, surgery with an antibacterial soap.? Wear comfortable, loose fitting clothing.? - Jewelry must be removed prior to entering the operating room.? Rings and piercings that are not removed may be cut off. - The hospital will not accept responsibility for valuables.? - Please leave all valuables, including medications, at home the day of surgery. If you are going home after surgery, a licensed public transit trolley driver must drive you home.? - NO public transportation without another adult if you receive anesthesia. - We recommend that an adult stay with you for 24 hours following discharge. - We also recommend that you do not drive, make important decision, drink alcoholic beverages, or take any drugs that were not prescribed by your health care provider for at least 24 hours after your discharge time. Follow any additional instructions given to you from your surgeon. Telephone instructions given to ____PATIENT and asked if any additional questions and then verbalized understanding. Patient advised to call surgeon office or pre surgery nurse liaison [phone] if any additional questions.
[2025-01-01 14:11] VITALS: BP 142/70; PULSE 80; RESP 16; TEMP 36.8; O2SAT 98
[2025-01-01 15:00] VITALS: BMI 25.0
--- NOTE | 2025-01-23 07:48 | P.HP_ITS ---
H&P: HPI History of Present Illness Date/Time: 01/23/25 07:48 Chief Complaint: Right knee DJD Narrative: 74-year-old female presents today for right total knee arthroplasty. Patient has been having symptoms in the right knee for years. She does not take anti- inflammatories, she has GI intolerance to them. She underwent left total knee replacement in July 2024. She had uneventful recovery. She is recovered well. She is happy with her results. Her right knee continues to be very symptomatic for her and she wishes to proceed with right total knee at this point. Review of Systems Review of Systems: All systems reviewed & are unremarkable except as noted in HPI and below PMFSH Past Medical History Medical History Cancer Anemia Migraine Thyroid disorder Surgical History Surgical History History of left knee replacement History of cholecystectomy 2007 Family History Family History Mother Hypertension Cancer Father Heart disease Sibling Heart disease Hypertension Legal Guardian Heart disease Hypertension Social History Social History Smoking status: Never smoker Alcohol intake: never Substance use: never Do You Feel Safe in your Home?: Yes Lack of Transportation: No Lack of Food: Never True Current Housing: Decline to Answer Concerned About Future Housing: Decline to Answer Difficulty Paying Gas/Electric Bills: Decline to Answer Difficulty Paying for Meds: Decline to Answer Currently Unemployed: Decline to Answer Education: Decline to Answer Difficulty w/ Childcare or Family Care: Decline to Answer Living arrangements: alone Occupation/Education: retired Gender identity (if verbalized by the patient): Female Spiritual care concerns: No Meds Home Medications and Allergies Home Medications ?Medication ?Instructions ?Recorded ?Confirmed ?Type No Home Medications 10/24/24 01/19/25 History Allergies Allergy/AdvReac Type Severity Reaction Status Date / Time zanamivir Allergy Intermediate sob Verified 01/18/25 09:06 celecoxib (From Celebrex) AdvReac Nausea and Verified 01/18/25 09:06 Vomiting Exam Narrative: 74-year-old female alert pleasant. She is 5 ft 5 150 lb BMI is 25.0. Her right knee she hyperextends about 3? and flexes to 130?. She has a valgus that does not fully correct with varus stress. Hip range of motion is full without discomfort, negative Stinchfield maneuver. Mild effusion in the knee. No increased swelling in either lower extremity. 2+ dorsalis pedis pulse. She has normal sensation both lower extremities. She has prki-xu-lzhfhyns tenderness over the lateral joint line to palpation. Minimal tenderness over the medial joint line. No pain with patellofemoral grind. Skin is normal around the knee. Resp: Auscultation: clear to auscultation bilaterally Cardio: Rate: regular rate Rhythm: regular rhythm Assessment and Plan Assessment and plan (1) Primary osteoarthritis of right knee: Code(s): M17.11 - Unilateral primary osteoarthritis, right knee Status: Acute Assessment and Plan: 74-year-old female who has severe lateral compartment osteoarthritis the right knee. Patient is having continued symptoms pain in the knee. She is very happy with her left total knee arthroplasty. Again she feels she has recovered well at this point and ready proceed with right total knee. Surgical procedure as well as the risks and complications were reviewed all questions were answered we will proceed. Patient does not tolerate anti-inflammatories therefore we will avoid them again through her recovery. Patient's nasal swab was negative Chem panel is all within normal limits creatinine 0.66. Hemoglobin 13.[address] atelets were 200.
[2025-01-24] VITALS (17 sets, daily range): BP systolic 135–165; BP diastolic 59–85; PULSE 88–113; RESP 14–24; TEMP 36.2–36.7; O2SAT 92–100; BMI 24.9
--- NOTE | ~2025-01-24 | XR_ITS ---
EXAMINATION: [id number] DATE: 01/24/2025 12:03 CDT INDICATION: Right knee arthroplasty TECHNIQUE: 2 views right knee FINDINGS: There is a right total knee arthroplasty in expected position. Subcutaneous gas with fluid and air in the joint and overlying skin fernanda are consistent with recent surgery. No evidence of p eriprosthetic fracture. IMPRESSION: 1. Recent right total knee arthroplasty. Reviewed, dictated and finalized at location A.
--- OUTSIDE RECORDS SUMMARY | 2025-01-24 03:08 | XMS_ITS | Data Portability ---
Author Organization [facility] Address [address] [place] [address] Care Team Providers Care Fixed Capital Clerk Name Role Phone CORNELIUS MAURICE Benefits Sales Consultant ADOLPH BROWN Primary Care Provider Assessment Encounter Date Assessment Date Assessment LastModified by Organization Details LastModified Time 01/04/2024 01/04/2024 Regular Josey we will give her some Ceftin to take for 3 weeks which is what usually settles down her sinuses Diflucan for the yeast infection usually gets with antibiotics blood work obtain thyroid ultrasound obtain old records follow-up with me in 4 months [email or web address] Not available 01/04/2024 21:34:46 05/23/2024 05/23/2024 she will consider immunizations she will follow up me i [email or web address] Not available 06/10/2024 14:26:38 10/11/2024 10/11/2024 overall has been doing fine we will continue to monitor she will see me in 3 months [email or web address] Not available 10/21/2024 23:10:10 Plan of Treatment Reminders Order Date Submit Date Provider Last Modified By Organization Details Last Modified Time Details Appointments ANY 15 2024 01:00P M Adolph Brown MD Not available Not available Not available Lab lipid panel, serum 2023 024 [email or web address] [facility], [address], [address], 07/09/2024 10:38:01 CMP, serum or plasma 2023 024 [email or web address] [facility], [address], [place], [address], 08/29/2024 22:47:19 T4, free, serum 2023 024 [facility], [address] [place] [address], [place], [address], 07/09/2024 10:38:00 T3, free, serum or plasma 2023 024 [facility], [address] [place] [address], [place], [address], 07/09/2024 10:38:00 CBC w/ auto diff 2023 024 [email or web address] [facility], [address] [place] [address], [place], [address], 08/29/2024 22:47:19 TSH, ultra-sen sitive, serum 2023 024 [facility], [address] [place] [address], [place], [address], 07/09/2024 10:38:01 SARS CoV 2 RNA (COVID-19 ), QL, wheat buyer-PCR, respirato ry specimen - cough,fat igue, sore throat, congestio n, fever, muscle pain, exposed to pos COVID person. [facility] 1200 2019 020 [facility] ([facility]), [address] [place] [address], [address], 05/21/2020 17:20:58 Referral None recorded. Procedures None recorded. Surgeries None recorded. Imaging US, thyroid 2023 024 [facility], [address] Tam[address] Mendez, [facility] [address], [place], [address], 07/18/2024 15:07:54 Medication Orders cefuroxim e axetil 500 mg tablet 2023 024 [facility], [address] [place], [address], 05/23/2024 10:24:25 Diflucan 150 mg tablet 2023 024 [facility], [address] [facility] [place], [address], 05/23/2024 10:24:35 Patient TargetsNo targets recorded. Patient Instructions Encounter Date Encounter Id Patient Instructions Last Modified By Organization Details Last Modified Time 05/20/2020 [id number] Reviewed the following recommendations: -Stay home and [...] CoV 2 RNA (COVI D-19) , QL, wheat buyer-P CR, respi rator y speci men sars - cov - 2 PCR NEGATI VE mL Not Available [facility] ([facility]) [address] [place] [address], [address], 05/21/2020 17:20:58 05/20/20 20 05/20/2020 SARS CoV 2 RNA (COVI D-19) , QL, wheat buyer-P CR, respi rator y speci men covidcom1 [...] of this test metho d. Not Available [facility] (Lab) [address] [place], [address], 05/21/2020 17:20:58 05/20/20 20 05/20/2020 SARS CoV 2 RNA (COVI D-19) , QL, wheat buyer-P CR, respi rator y speci men covidcom2 Posit gloria resul ts are indic ative of the prese nce of SARS- CoV-2 RNA and do not rule out bacte rial infec tion or co-in fecti on with other virus es. Not Available [facility] (Lab) [address] [place], [address], 05/21/2020 17:20:58 05/20/20 20 05/20/2020 SARS CoV 2 RNA (COVI D-19) , QL, wheat buyer-P CR, respi rator y speci men covidcom3 Test resul ts shoul d be used along with other clini gabriela obser vatio ns, patie nt histo ry, epide miolo gical infor matio n and labor atory data in makin g the diagn osis. Not Available [facility] (Lab) [address] [facility], [place], [address], 05/21/2020 17:20:58 05/20/20 20 05/20/2020 SARS CoV 2 RNA (COVI D-19) , QL, wheat buyer-P CR, respi rator y speci men covidcom4 [...] or revok ed soone r. Not Available [facility] ([facility]) [address] [place], [address], 05/21/2020 17:20:58 05/20/20 20 05/20/2020 SARS CoV 2 RNA (COVI D-19) , QL, wheat buyer-P CR, respi rator y speci men covidcom5 [facility] certi fied under CLIA- 88 as quali fied to perfo rm high compl exity testi ng. This testi ng was perfo rmed in the [facility] [place] [address] (CLIA Licen se #[id number] 5, CAP #[id number], AU-ID #[id number]). Not Available [facility] (Lab) [address] [place], [address], 05/21/2020 17:20:58 05/20/20 20 05/20/2020 SARS CoV 2 RNA (COVI D-19) , QL, wheat buyer-P CR, respi rator y speci men covidcom6 Facts heet for healt hcare provi ders: https ://ww w.fda .gov/ media /1362 56/do wnloa d Facts heet for patie nts: https ://ww w.fda .gov/ media /1362 57/do wnloa d Not Available [facility] ([facility]) [address] [place], [address], 05/21/2020 17:20:58 02/22/20 23 02/21/2023 Thyro tropi [...] neutrophils, absolute count neutr ophil s, absol benton count Not Available Not Available 10/10/2024 16:47:30 02/22/20 23 02/21/2023 CBC W Auto Diffe renti al panel - Blood lymphocytes, absolute count lymph ocyte s, absol benton count Not Available Not Available 10/10/2024 16:47:30 02/22/20 23 02/21/2023 CBC W Auto Diffe renti al panel - Blood monocytes, absolute count monoc ytes, absol benton count Not Available Not Available 10/10/2024 16:47:30 07/03/20 23 02/21/2023 CBC W Auto Diffe renti al panel - Blood eosinophils, absolute count eosin ophil s, absol benton count Not Available Not Available 10/10/2024 16:47:30 02/22/20 23 02/21/2023 CBC W Auto Diffe renti al panel - Blood basophils, absolute count basop hils, absol benton count Not Available Not Available 10/10/2024 16:47:30 [...] 2 view No observ ation record ed. [address] [place] [address], [address], 08/10/2024 09:51:02 09/19/19 25 09/19/2024 US, doppl er, venou s No observ ation record ed. [address] [facility], [place], [address], 09/20/2024 17:59:56 Result Notes None recorded. Problems Name Problem SNOMED Code Status Onset Date Resolution Date Notes Provider Name and Address Organization Details Recorded Time Fatigue 41393473 Active 024 ALBINO Ivan, [place] - [facility] 4 14:27:32 Thyroid nodule 303156686 Active 024 ALBINO Ivan, [place]UR[place] - [facility] 4 14:27:33 Sinusitis 08948870 Active 024 Adolph Brown MD Attn: Vilma pires,[address] [facility], [place], [address], [facility] 4 21:34:46 Problem Notes None recorded. Procedures Surgical History Date Name Laterality Status Provider Name and Address Organization Details Recorded Time Arthroscopic Surgery completed Halina Valdovinos [place] [facility] 01/04/2024 14:06:10 Heart Surgery completed Halina Valdovinos MA [facility] 01/04/2024 14:06:15 Knee Surgery completed Halina Valdovinos MA [facility] 01/04/2024 14:06:20 Tonsillectomy completed Halina Valdovinos MA [facility] 01/04/2024 14:06:24 ligation of bilateral fallopian tubes completed Halina Valdovinos MA [facility] 01/04/2024 14:06:31 Total hysterectomy completed Mahesh Valdovinos [place] [facility] 01/04/2024 14:06:38 Imaging Results None recorded. Procedure Notes None recorded. Medical Equipment None Reported. Allergies Allergen ID Allergen Name Allergen Category Reaction Reaction Severity Criticality Documentation Date Start Date Code Code System Note Provider Name and Address Organization Details Recorded Time 667447 doxycycli ne Not available other Not available Not available 10/11/20242020 3640 RxNorm ALBINO Negron, [place] - [facility] 5 14:21:06 790096 Macrobid medicatio n other mild low 10/11/20242020 62395 1 RxNorm med cause s yeast infec tions Tawanna Britton LPN null, [place] - [facility] 5 09:39:29 690966 nitrofura ntoin, macrocrys tals / nitrofura ntoin, monohydra te medicatio n Not available Not available Not available 10/11/20242020 62225 2 RxNorm unrec ogniz ed react ion (text : Unkno wn, code: [id number]) (from exter nal [facility] e) Tawanna Britton LPN null, [place] - [facility] 5 09:40:56 Medications Name Sig Start Date [...] Updated DateTime 5 165.1 cm 24.8 kg/m2 49368.2 6 g 84 /min 98 % 98 % 110 mm[Hg] 70 mm[Hg] Crystal Haddad MA [facility] 5 14:20:55 Date Recorded Body height Body mass index (BMI) Body weight Heart rate Oxygen saturation Oxygen saturation in Arterial blood by Pulse oximetry Systolic blood pressure Diastolic blood pressure Provider Name and Address Organization Details Last Updated DateTime 4 165.1 cm 24.7 kg/m2 65315.8 3 g 85 /min 99 % 99 % 142 mm[Hg] 88 mm[Hg] Halina Valdovinos MA [facility] 4 14:10:31 Date Recorded Body height Body mass index (BMI) Body weight Heart rate Oxygen saturation Oxygen saturation in Arterial blood by Pulse oximetry Systolic blood pressure Diastolic blood pressure Provider Name and Address Organization Details Last Updated DateTime 5 165.1 cm 24.5 kg/m2 75624.4 4 g 90 /min 98 % 98 % 128 mm[Hg] 64 mm[Hg] Mis Granda MA [facility] 5 13:56:19 Date Recorded Body height Body mass index (BMI) Body weight Heart rate Oxygen saturation Oxygen saturation in Arterial blood by Pulse oximetry Systolic blood pressure Diastolic blood pressure Provider Name and Address Organization Details Last Updated DateTime 4 165.1 cm 24.7 kg/m2 94184.1 1 g 91 /min 97 % 97 % 122 mm[Hg] 70 mm[Hg] Mis Granda [place] [facility] 10:28:01 Social History Question Answer Notes LastModified by Organizat ion Details LastModified Time Tobacco Smoking Status Never Smoker Halina Valdovinos MA ryan, [place] - [facility] 01/04/2024 14:08:12 Do You Have An Advance [...] Date Of Your Most Recent Tobacco Screening? 01/16/2025 Information not available 01/16/2025 What Is Your Relationship Status? Information not [...] anxious, or unable to sleep at night)? [id number] Information not available 01/04/2024 Family History Relationship [...] lable 01/04/2024 14:07:01 Medical History Condition Response Thyroid Problems Y GI Problems Y Muscle, Joint, or Bone Problems Y Cancer Y Allergies Y Headaches Y Gynecological History Statement/Question Response If Post Menopausal, Age at Menopause 50 Obstetrics History GPAL:G 3 P 3 0 0 3 Type Value Full Term 3 Living 3 Total 3 Past Encounters Encounter ID Performer Location Encounter Start Date Encounter Closed Date Diagnosis/Indication Diagnosis SNOMED-CT Code Diagnosis ICD10 Code Diagnosis Note [id number] GALE Mahan [address] [place] [address] 05/20/2020 10:58:27 05/22/2020 15:52:47 Suspected COVID-19 831150750 Z03.818 D/w pt the current pandemic of COVID-19 and call for social isolation in order to blunt the curve and minimize risk and spread. Encouraged patient and family to take restrictio ns seriously. They have verbalized understand ing of such. 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.90 Chronic rhinitis 6519414 6 J31.0 [id number] Adolph Brown MD [facility] [address] [place] [address] 10/11/2024 14:12:04 10/11/2024 15:18:38 Body mass index 20-24 - normal 662953675 Z68.24 Pericardial effusion 373 533064 I31.39 Follicular lymphoma 3081 45919 C82.90 Osteoarthritis 745478016 M19.90 [id number] MD Dat Amezcua (Adult Med) [address] [place] [phone] 01/16/2025 13:43:04 01/16/2025 14:42:13 Body mass index 20-24 - normal 192292148 Z68.24 Health Concerns Section Related Observation LastModified by Organization Detai ls LastModified Time None Recorded Concern Status LastModified by Organization Details LastModified Time None Recorded Advance Directives Directive N: Payers Encounter Date Sequence Insurance Name Policy Number Policy Marshall Covered Member ID Marshall Member ID Guarantor Name 05/20/2020 1 [facility] ([place] [id number] Brooke Chirinos [id number] Brooke Chirinos 01/04/2024 1 [place] Brooke Chirinso [id number] Brooke Taran 01/04/2024 2 [place] [id number] Brooke Chirinos [id number] Brooke Taran 05/23/2024 1 [place] Brooke Chirinos [id number] Brooke Taran 05/23/2024 2 [place] [id number] Brooke Taran [id number] Brooke Taran 10/11/2024 1 [place] Brooke Kirkpatrickman [id number] Brooke Taran 10/11/2024 2 [place] [id number] Brookezach Chirinos [id number] Brooke Chirinos Notes Date Note Type Note Provider Name and Address Organization Details Recorded Time 05/20/2020 text/html COVID ScreeningReported bypatient.Onset/Durati on of fever:fever Associated Symptoms:cough Comorbiditiesage greater than 65 years oldCOVID-19 Symptoms December 2019Reported bypatient.COVID-19 Signs and Symptomscough resolved; cough same; fever resolved; fever same; shortness of breath resolved; chills resolved; chills same; repeated shaking with chills resolved; muscle pain resolved; muscle pain improving; headache resolved; sore throat resolved; loss of taste or smell resolved; vomiting or diarrhea resolved; fatigue resolved; fatigue same; anorexia resolved Contacts and Exposureclose contact with a confirmed or suspected case of COVID-19; close proximity with person with COVID-19 Associated Symptoms:no sputum production; no wheezing; no runny nose; no vomiting; no diarrhea; no body aches; no nausea; no change in mental status; no hypotension; no tachycardia 70 yo female ,spoke via phone with C/O, cough,fatigue, sore throat, congestion, fever, muscle pain, exposed to pos COVID person. RONA Diaz NP Attn: Accounting,[address] [place], [address], [facility] 05/20/2020 11:46:49 01/04/2024 text/html 73-year-old with a history of chronic sinusitis thyroid nodule low-level been lymphoma I believe being followed at [facility] she has had some nonspecific fatigue and her sinuses are flared up again does have some headaches but that is usually when her sinuses are flared up Adolph Brown MD Attn: Accounting,[address] [facility], [place], [address], [facility] 01/04/2024 21:35:36 05/23/2024 text/html chronic rhinitis and sinusitis is stable. Interval history her of congestive heart failure Adolph Brown MD Attn: Accounting,[address] [facility], [place], [address], [facility] 06/10/2024 14:26:56 10/11/2024 text/html had her knee rep laced that went fine maybe just a little bit of anemia overall has been doing fine pericardial effusions she has been followed by cardio oncology at [facility] and she has had no signs or symptoms of anything that has been decompensated Adolph Brown MD Attn: Accounting,[address] [facility], [place], [address], [facility] 10/21/2024 23:10:29 OBGyn Episode No OBEpisode recorded.
--- OUTSIDE RECORDS SUMMARY | 2025-01-24 03:08 | XMS_ITS | Data Portability ---
Author Organization [place] - [employer], Main Office Address [address] [place] [address] Care Team Providers Care Licensed Physical Therapist Assistant Name Role Phone ADOLPH BROWN Primary Care Provider [phone] ADOLPH BROWN Referring Provider Assessment Encounter Date Assessment Date Assessment LastModified by Organization Details LastModified Time 02/21/2023 02/21/2023 mawv portion completed by Kaleb Valiente RN under supervision of Dr Brown wellness concluded including advance care planning blood work has been discussed she will continue current therapy and will follow-up with me in 4 months [email or web address] Not available 03/05/2023 16:29:26 02/24/2023 02/24/2023 Patient [...] 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 On exam today she has valgus alignment [...] today. 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 crew time clerk and is not at a place where [...] Ceftin for her sinuses follow-up 6 months [email or web address] Not available 06/29/2023 23:04:06 08/25/2023 08/25/2023 Impression: [...] procedure, administere d by provider 2023 024 [email or web address] In-Office Order, Internal Use Only DO Not Attach Compendium DO Not Attach Compendium, Do Not Delete/merge, [id number] 11:29:10 injection/a spiration joint/bursa (PROC) - in office procedure, administere d by provider 2022 023 In-Office Order, Internal Use Only DO Not Attach Compendium DO Not Attach Compendium, Do Not Delete/merge, [id number] 11:05:04 injection/a spiration joint/bursa (PROC) - in office procedure, administere d by provider 2022 023 [email or web address] In-Office Order, Internal Use Only DO Not Attach Compendium DO Not Attach Compendium, Do Not Delete/merge, [id number] 11:08:34 Surgeries None recorded. Imaging XR, knee 2023 024 [email or web address] [facility], [address] [place] [address], [id number], 4 14:38:09 Medication Orders Kenalog 10 mg/mL suspension for injection [address] [facility], [address] [place] [address], [address], 4 14:49:53 ropivacaine (PF) 5 mg/mL (0.5 %) injection solution [address] [facility], [address] [place] [address], [address], 4 14:49:53 cefuroxime axetil 500 mg tablet 2022 023 [email or web address] [facility], [address] [place] [address], [address], 4 11:25:41 Kenalog 10 mg/mL suspension for injection 2022 023 [email or web address] [facility], [address] [place] [address], [address], 4 11:25:44 ropivacaine (PF) 5 mg/mL (0.5 %) injection solution 2022 023 [email or web address] [facility], [address] [place] [address], [address], 4 11:25:46 Kenalog 10 mg/mL suspension for injection [address] [facility], [address] [place] [address], [address], 4 11:25:44 ropivacaine (PF) 5 mg/mL (0.5 %) injection solution [address] [facility], [address] [place] [address], [address], 11:25:46 Patient TargetsNo targets recorded. Patient Instructions Encounter Date Encounter Id Patient Instructions Last Modified By Organization Details Last Modified Time 02/21/2023 [id number] dementia rating scale-2* [email or web address] Not available 03/05/2023 16:29:49 alcohol misuse* Not available 03/05/2023 16:29:49 depression screening* [email or web address] Not available 03/05/2023 16:29:49 multi-dimensiona l health assessment questionnaire* [email or web address] Not available 03/05/2023 16:29:49 care plan* Not available 03/05 16:29:49 advance directiv es: care instructions Not available 03/05/2023 16:29:49 advance care planning: care instructions [email or web address] Not available 03/05/2023 16:29:49 [place] Advance Directives [email or web address] Not available 03/05/2023 16:29:49 Personalized [facility] lt Plan and Screening Recommendations Advance Directives [...] Non Smoker Alcohol Misuse Screening: Negative Weight: Overweight try to lose 10% of your body weight Physical activity: Appropriate physical activity minimum of 20-30 minutes activity that causes mild breathlessness/day Nutrition: Average Refer to attached handout Heart-Healthy Diet: After Your Visit Fall Risk (screened today): Low Refer to attached handout Preventing Falls: After your Visit Vaccines Pneumococcal: Recommended today, but you have declined Influenza: Recommended today, but you have declined Chronic Disease Risks Stroke: Low Risk I have no recommendations Heart Attack: Low risk I have no recommendations Clogging of the Arteries: Low risk I have no recommendations Diabetes: Low Risk I have no recommendations Secondary Prevention/Interven tion (detects treatable diseases before they may cause symptoms, disability, or ) Breast Cancer Screening with mammogram: Recommended today, but you have declined Cervical/Uterine/Ov travis Cancer Screening: Recommended today, but you have declined Osteoporosis Screening: Recommended today, but you have declined Date Screening Last Performed: Colon Cancer Screening: Colonoscopy Recommended Date Screening Last Performed: Eye Disease Screening: Ordered Recommended today Recommended today, but you have declined No Eye exam necessary Your next exam in: annually Dementia Risk: Low I have no recommendations Depression Screening: Negative [email or web address] Not available 02/21/2023 14:59:52 Reason for Referral None Reported. Results Created Date Observation Date Name Description Value Unit Range Abnormal Flag Note LastModifiedBy Organization Detail LastModifiedTime 02/22/2002/21/2023 CBC/C OMPLE TE BLD COUNT W/DIF F white blood cells 5.5 x10'3 /uL 4.2-10 .8 Not Available [facility] (Lab) [address] [place], [address], 02/21/2023 15:45:54 02/22/20 23 02/21/2023 CBC/C OMPLE TE BLD COUNT W/DIF F red blood cells 3.98 x10'6 /uL 3.80-5 .20 Not Available [facility] (Lab) [address] [place], [address], 02/21/2023 15:45:54 02/22/20 23 02/21/2023 CBC/C OMPLE TE BLD COUNT W/DIF F hemoglobin 11.9 g/dL 12.0-1 5.6 low Not Available [facility] (Lab) [address] [place], [address], 02/21/2023 15:45:54 02/22/20 23 02/21/2023 CBC/C OMPLE TE BLD COUNT W/DIF F hematocrit 37.4 % 35.7-4 5.7 Not Available [facility] (Lab) [address] [place], [address], 02/21/2023 15:45:54 02/22/20 23 02/21/2023 CBC/C OMPLE TE BLD COUNT W/DIF F mean red cell volume 94.0 fL 82.0-9 9.0 Not Available [facility] (Lab) [address] [place], [address], 02/21/2023 15:45:54 02/22/20 23 02/21/2023 CBC/C OMPLE TE BLD COUNT W/DIF F mean red cell hemoglobin 29.9 pg 27.0-3 3.0 Not Available [facility] (Lab) [address] [place], [address], 02/21/2023 15:45:54 02/22/20 23 02/21/2023 CBC/C OMPLE TE BLD COUNT W/DIF F mean RBC HGB concentratio n 31.8 g/dL 31.0-3 6.0 Not Available [facility] (Lab) [address] [place], [address], 02/21/2023 15:45:54 02/22/20 23 02/21/2023 CBC/C OMPLE TE BLD COUNT W/DIF F red cell distribution width 13.7 % 11.8-1 5.5 Not Available [facility] (Lab) [address] [place], [address], 02/21/2023 15:45:54 02/22/20 23 02/21/2023 CBC/C OMPLE TE BLD COUNT W/DIF F platelets 224 x10'3 /uL 150-40 0 Not Available [facility] (Lab) [address] [place], [address], 02/21/2023 15:45:54 02/22/20 23 02/21/2023 CBC/C OMPLE TE BLD COUNT W/DIF F mean platelet volume 9.0 fL 9.0-12 .4 Not Available [facility] (Lab) [address] [place], [address], 02/21/2023 15:45:54 02/22/20 23 02/21/2023 CBC/C OMPLE TE BLD COUNT W/DIF F neutrophils 56.4 % 39.0-7 2.0 Not Available [facility] (Lab) [address] [place], [address], 02/21/2023 15:45:54 02/22/20 23 02/21/2023 CBC/C OMPLE TE BLD COUNT W/DIF F lymphocytes 27.0 % 16.0-4 7.0 Not Available [facility] (Lab) [address] [place], [address], 02/21/2023 15:45:54 02/22/20 23 02/21/2023 CBC/C OMPLE TE BLD COUNT W/DIF F monocytes 10.3 % 5.0-12 .0 Not Available [facility] (Lab) [address] [place], [address], 02/21/2023 15:45:54 02/22/20 23 02/21/2023 CBC/C OMPLE TE BLD COUNT W/DIF F eosinophils 5.4 % 1.0-7. 0 Not Available [facility] (Lab) [address] [place], [address], 02/21/2023 15:45:54 02/22/20 23 02/21/2023 CBC/C OMPLE TE BLD COUNT W/DIF F basophils 0.7 % 0.0-2. 0 Not Available [facility] (Lab) [address] [place], [address], 02/21/2023 15:45:54 02/22/20 23 02/21/2023 CBC/C OMPLE TE BLD COUNT W/DIF F immature granulocytes 0.2 % 0.00-0 .50 Not Available [facility] (Lab) [address] [place], [address], 02/21/2023 15:45:54 02/22/20 23 02/21/2023 CBC/C OMPLE TE BLD COUNT W/DIF F neutrophils, absolute count 3.10 x10'3 /uL 1.5-8. 0 Not Available [facility] (Lab) [address] [place], [address], 02/21/2023 15:45:54 02/22/20 23 02/21/2023 CBC/C OMPLE TE BLD COUNT W/DIF F lymphocytes, absolute count 1.49 x10'3 /uL 1.07-3 .43 Not Available [facility] (Lab) [address] [place], [address], 02/21/2023 15:45:54 02/22/20 23 02/21/2023 CBC/C OMPLE TE BLD COUNT W/DIF F monocytes, absolute count 0.57 x10'3 /uL 0.29-0 .99 Not Available [facility] (Lab) [address] [place], [address], 02/21/2023 15:45:54 02/22/20 23 02/21/2023 CBC/C OMPLE TE BLD COUNT W/DIF F eosinophils, absolute count 0.30 x10'3 /uL 0.02-0 .53 Not Available [facility] (Lab) [address] [place], [address], 02/21/2023 15:45:54 02/22/20 23 02/21/2023 CBC/C OMPLE TE BLD COUNT W/DIF F basophils, absolute count 0.04 x10'3 /uL 0.01-0 .08 Not Available [facility] (Lab) [address] [place], [address], 02/21/2023 15:45:54 02/22/20 23 02/21/2023 CBC/C OMPLE TE BLD COUNT W/DIF F immature granulocytes ,absolute 0.01 x10'3 /uL 0.00-0 .05 Not Available [facility] (Lab) [address] [place], [address], 02/21/2023 15:45:54 02/22/20 23 02/21/2023 CBC/C OMPLE TE BLD COUNT W/DIF F nucleated red blood cells 0.0 % -0 Not Available [facility] (Lab) [address] [place], [address], 02/21/2023 15:45:54 02/22/20 23 02/21/2023 CBC/C OMPLE TE BLD COUNT W/DIF F NRBC# 0.00 x10'3 /uL Not Available [facility] (Lab) [address] [place], [address], 02/21/2023 15:45:54 02/22/20 23 02/21/2023 COMPR EHENS KATHARINE METAB OLIC PANEL sodium 138 mmol/ L 137-14 5 Not Available [facility] (Lab) [address] [place], [address], 02/21/2023 16:02:32 02/22/20 23 02/21/2023 COMPR EHENS KATHARINE METAB OLIC PANEL potassium 4.0 mmol/ L 3.5-5. 1 Not Available [facility] (Lab) [address] [place], [address], 02/21/2023 16:02:32 02/22/20 23 02/21/2023 COMPR EHENS KATHARINE METAB OLIC PANEL chloride 100 mmol/ L 98-107 Not Available [facility] (Lab) [address] [place], [address], 02/21/2023 16:02:32 02/22/20 23 02/21/2023 COMPR EHENS KATHARINE METAB OLIC PANEL carbon dioxide 29 mmol/ L 22-30 Not Available [facility] (Lab) [address] [facility] [place], [address], 02/21/2023 16:02:32 02/22/20 23 02/21/2023 COMPR EHENS KATHARINE METAB OLIC PANEL anion gap 13.0 mmol/ L 14-22 low Not Available [facility] (Lab) [address] [facility] [place], [address], 02/21/2023 16:02:32 02/22/20 23 02/21/2023 COMPR EHENS KATHARINE METAB OLIC PANEL glucose 101 mg/dL 70-99 high Not Available [facility] (Lab) [address] [facility] [place], [address], 02/21/2023 16:02:32 02/22/20 23 02/21/2023 COMPR EHENS KATHARINE METAB OLIC PANEL BUN 12 mg/dL 8-19 Not Available [facility] (Lab) [address] [place], [address], 02/21/2023 16:02:32 02/22/20 23 02/21/2023 COMPR EHENS KATHARINE METAB OLIC PANEL creatinine 0.60 mg/dL 0.66-1 .25 low Not Available [facility] (Lab) [address] [facility] [place], [address], 02/21/2023 16:02:32 02/22/20 02/21/2023 COMPR EHENS KATHARINE METAB OLIC PANEL GFR >60 Refer ence Range : [place] ge GFR Healt hy Adult : >60 [...] calcu lator is avail able on the [facility] websi te: [email or web address] :[email or web address] r_[email or web address] culat or Not Available [facility] (Lab) [address] [place], [address], 02/21/2023 16:02:32 02/22/20 23 02/21/2023 COMPR EHENS KATHARINE METAB OLIC PANEL alkaline phosphatase 60 U/L 38-126 Not Available [facility] (Lab) [address] [place], [address], 02/21/2023 16:02:32 02/22/20 23 02/21/2023 COMPR EHENS KATHARINE METAB OLIC PANEL alanine aminotransfe rase 21 U/L 0-35 Not Available [facility] (Lab) [address] [place], [address], 02/21/2023 16:02:32 02/22/20 23 02/21/2023 COMPR EHENS KATHARINE METAB OLIC PANEL aspartate aminotransfe rase 27 U/L 15-37 Not Available [facility] (Lab) [address] [place], [address], 02/21/2023 16:02:32 02/22/20 23 02/21/2023 COMPR EHENS KATHARINE METAB OLIC PANEL bilirubin, total 0.30 mg/dL 0.20-1 .30 Not Available [facility] (Lab) [address] [place], [address], 02/21/2023 16:02:32 02/22/20 23 02/21/2023 COMPR EHENS KATHARINE METAB OLIC PANEL calcium 9.3 mg/dL 8.4-10 .2 Not Available [facility] (Lab) [address] [place], [address], 02/21/2023 16:02:32 02/22/20 23 02/21/2023 COMPR EHENS KATHARINE METAB OLIC PANEL total protein 6.6 g/dL 6.3-8. 2 Not Available [facility] (Lab) [address] [place], [address], 02/21/2023 16:02:32 02/22/20 23 02/21/2023 COMPR EHENS KATHARINE METAB OLIC PANEL albumin 4.3 g/dL 3.0-4. 4 Not Available [facility] (Lab) [address] [place], [address], 02/21/2023 16:02:32 02/22/20 23 02/21/2023 COMPR EHENS KATHARINE METAB OLIC PANEL globulin 2.3 g/dL 2.6-4. 2 low Not Available [facility] (Lab) [address] [place], [address], 02/21/2023 16:02:32 02/22/20 23 02/21/2023 COMPR EHENS KATHARINE METAB OLIC PANEL A/G ratio 1.9 ratio 1.0-2. 0 Not Available [facility] (Lab) [address] [place] [address], [address], 02/21/2023 16:02:32 02/22/20 23 02/21/2023 LIPID PANEL cholesterol 239 mg/dL 140-19 9 [facility] BERENICE NSUS RECOM MENDA TION FOR SAMANTHA STERO L: ADULT CHILD LOW RISK: <200 <170 BORDE RLINE : <200- 239 ----- HIGH RISK: >240 >200 Not Available [facility] (Lab) [address] [place] [address], [address], 02/21/2023 16:02:35 02/22/20 23 02/21/2023 LIPID PANEL triglyceride s 105 mg/dL 0-150 [facility] BERENICE NSUS REPOR T RECOM MENDA TION FOR TRIGL YCERI BHARATHI: ADULT CHILD LOW RISK: <150 ----- BODER LINE: 150-1 99 ----- HIGH RISK: >200 ----- Not Available [facility] (Lab) [address] [place] [address], [address], 02/21/2023 16:02:35 02/22/20 23 02/21/2023 LIPID PANEL HDL cholesterol 98 mg/dL 40- Not Available [facility] (Lab) [address] [place] [address], [address], 02/21/2023 16:02:35 02/22/20 23 02/21/2023 LIPID PANEL [...] WILL NOT BE REPOR JUSTIN. Not Available [facility] (Lab) [address] [place], [address], 02/21/2023 16:02:35 02/22/20 23 02/21/2023 T3 FREE free T3 2.7 pg/mL 2.77-5 .27 low Not Available [facility] (Lab) [address] [place], [address], 02/21/2023 16:26:15 02/22/20 23 02/21/2023 T4 FREE free T4 1.23 NG/dL 0.78-2 .19 Not Available [facility] (Lab) [address] [place], [address], 02/21/2023 16:26:19 02/22/20 23 02/21/2023 TSH thyroid-stim ulating hormone 2.710 uIU/m L 0.465- 4.680 Not Available [facility] (Lab) [address] [place], [address], 02/21/2023 16:27:16 08/25/19 24 XR, knee No observ ation record ed. [email or web address] [facility] [address] [facility], [place], [address], 09/11/2023 18:06:50 Result Notes None recorded. 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 Not Available [facility] 3 06:12:43 Abdominal pain 31820019 Active Not Available [facility] 3 06:12:43 Gastroesop hageal reflux disease 707348564 Active Not Available [facility] 3 06:12:43 Chest pain 34597791 Active Not Available [facility] 3 06:12:43 Sinusitis 65687738 Active Not Available [facility] 3 06:12:43 Diverticul ar disease of colon 823886824 Active Not Available [facility] 3 06:12:43 Chronic sinusitis 90396648 Active 2022 Not Available [facility] 3 06:12:43 Exostosis 231499104 Active Not Available [facility] 3 06:12:43 Pain of left knee joint 3973936069502 07 Active 2022 Not Available [facility] 3 06:12:43 Dysuria 53490116 Active 2021 Not Available [facility] 3 06:12:43 Cough 26566141 Active Not Available [facility] 3 06:12:43 Upper respirator y infection 38151012 Active 2021 Not Available [facility] 3 06:12:43 Urinary tract infectious disease 65747164 Active 2021 Not Available [facility] 3 06:12:43 Candidiasi s of vagina 39355100 Active 2021 Not Available [facility] 3 06:12:43 Nodule of lung 258543892 Active 2021 Not Available [facility] 3 06:12:43 Chronic rhinitis 66014293 Active Not Available [facility] 3 06:12:43 Disorder of skin 24923794 Active Not Available [facility] 3 06:12:43 Bilateral osteoarthr itis of knees 1493354325895 07 Active 2022 Not Available [facility] 3 06:12:43 Acute sinusitis 53719202 Active 2022 Not Available [facility] 3 06:12:43 Problem Notes None recorded. Procedures Surgical History Date Name Laterality Status Provider Name and Address Organization Details Recorded Time 02/22/20 23 Medicare Wellness CPT Code, subsequent completed Loli Valiente RN [facility] 02/21/2023 14:48:01 02/22/20 23 Advanced Care Planning completed Loli Valiente RN [facility] 02/21/2023 14:52:29 12/02/19 18 Date of Last Colonoscopy completed Not Available [facility]ending sale to [facility] 10/20/2022 14:56:00 08/05/20 10 Most Recent Bone Density completed Not Available [facility]ending sale to [facility] 10/20/2022 14:56:00 Knee Surgery completed Not Available Pending sale to [facility] 10/20/2022 14:56:01 Tubal Ligation completed Not Available Pending sale to [facility] 10/20/2022 14:56:01 repair of heart completed Not Available Pending sale to [facility] 10/20/2022 14:56:01 tonsilectomy/adeno ids completed Not Available Pending sale to [facility] 10/20/2022 14:56:01 mohs surgery completed Not Available Pending sale to [facility] 10/20/2022 14:56:01 Cholecystectomy completed Not Available Pending sale to [facility] 10/20/2022 14:56:01 Hysterectomy completed Not Available Pending sale to [facility] 10/20/2022 14:56:01 Sinus Surgery completed Not Available Pending sale to [facility] 10/20/2022 14:56:01 Imaging Results None recorded. Procedure Notes None recorded. Medical Equipment None Reported. Allergies Allergen ID Allergen Name Allergen Category Reaction Reaction Severity Criticality Documentation Date Start Date Code Code System Note Provider Name and Address Organization Details Recorded Time 98528 Macrobid medicatio n Not available Not available Not available 10/20/20222020 91427 1 RxNorm cause s yeast infec tion Not Available Pending sale to [facility] 3 15:02:09 68356 doxycycli ne Not available other Not available Not available 10/20/20222020 3640 RxNorm cause s yeast infec tion Not Available Pending sale to [facility] 3 15:02:09 Medications Name Sig Start Date Stop Date Status Note LastModified by Organization Details LastModified Time fluconazole 100 mg tablet TAKE 1 TABLET BY MOUTH ONCE DAILY active Not Available Not Available No t Available prednisone 10 mg tablet Take by oral route. take 7m5wteo, 2g9uhtn,1 x2days active Not Available Not Available No [...] suspension for injection in office 2023 active [facility]: 0003- 0494- 20 Not Available Not [...] propionate 50 mcg/actuati on nasal spray,suspe nsion [place] 2 sprays every day by intranasa l [...] height Body mass index (BMI) Body weight Provider Name and Address Organization Details Last Updated DateTime 08/25/2023 160.02 cm 27.1 kg/m2 41146.63 g Paulette Tao Sulema [facility] [employer] [facility] 08/25/2023 11:49:34 Date Recorded Body height Body mass index (BMI) Body weight Body temperature Heart rate Oxygen saturation Oxygen saturation in Arterial blood by Pulse oximetry Systolic blood pressure Diastolic blood pressure Provider Name and Address Organization Details Last Updated DateTime 3 165.1 cm 26.3 kg/m2 38299.5 9 g 97.9 [degF] 78 /min 94 % 94 % 116 mm[Hg] 78 mm[Hg] Alison Lewis RN [facility] [employer] [facility] 13:57:52 Date Recorded Body height Provider Name an d Address Organization Details Last Updated DateTime 02/24/2023 165.1 cm Paulette Tao Sulema [facility] [employer] [facility] 02/24/2023 11:07:05 Date Recorded Body height Provider Name an d Address Organization Details Last Updated DateTime 05/26/2023 165.1 cm Paulette Tao Sulema [facility] [employer] [facility] 05/26/2023 11:03:45 Date Recorded Body height Body mass index (BMI) Body weight Body temperature Heart rate Systolic blood pressure Diastolic blood pressure Provider Name and Address Organization Details Last Updated DateTime 3 165.1 cm 25.8 kg/m2 79551.8 2 g 99.7 [degF] 76 /min 126 mm[Hg] 80 mm[Hg] DEYSI Quiroz [place] [facility] [employer] 14:18:16 Social History Question Answer Notes LastModified by Organization Details LastModified Time Tobacco Smoking Status Never Smoker CHELSEY Rosenthal, [place] - [facility] [employer] 06/28/2023 14:05:19 Do You Have An Advance Directive? No Information Provided To Patient [id number] Information not available 10/20/2022 Are You Blind Or Do You Have Difficulty Seeing? No [email or web address] Information not available 06/28/2023 What Is Your Level Of Caffeine Consumption? Moderate [id number] Information not available 10/20/2022 How Much Tobacco Do You Chew? None [id number] Information not available 10/20/2022 In The 14 Days Before Symptom Onset, Have You Had Close Contact With A Laboratory-conf irmed COVID-19 While That Case Was Ill? No [email or web address] Information not available 06/28/2023 In The 14 Days Before Symptom Onset, Have You Had Close Contact With A Person Who Is Under Investigation For COVID-19 While That Person Was Ill? No [email or web address] Information not available 06/28/2023 Are You Deaf Or Do You Have Serious Difficulty Hearing? No Information not available 06/28/2023 What Type Of Diet Are You Following? REGULAR [id number] Information not available 10/20/2022 Which Illicit Or Recreational Drugs Have You Used? None [email or web address] Information not available 06/28/2023 What Is The Highest Grade Or Level Of School You Have Completed Or The Highest Degree You Have Received? [id number] [email or web address] Information not available 06/28/2023 Have There Been Any Changes To Your Family Or Social Situation? No [email or web address] Information not available 06/28/2023 What Is The Fluoride Status Of Your Home? Unknown [email or web address] Information not available 06/28/2023 Are There Any Guns Present In Your Home? Yes [email or web address] Information not available 06/28/2023 Do You Use Insect Repellent Routinely? No [email or web address] Information not available 06/28/2023 Where Do You Live? [facility] [email or web address] Information not available 06/28/2023 Advance Directive- Providers Has Reviewed Directive And Consents To Follow Them (insert Provider Name With Any Objectives In Notes Field) No [email or web address] Information not available 02/21/2023 Presence Of Domestic Violence No [email or web address] Information not available 02/21/2023 Guns Present In The Home? Yes Information not available 02/21/2023 Are You Able To Care For Yourself? Yes Information not available 02/21/2023 Are You Blind Or Do Yo Have Difficulty Seeing? No [email or web address] Information not available 02/21/2023 Are You Deaf Or Do You Have Serious Difficulty Hearing? Yes Hard Of Hearing [email or web address] Information not available 02/21/2023 General Stress Level? 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 No [email or web address] Information not available 06/28/2023 What Was The Date Of Your Most Recent Tobacco Screening? 06/28/2023 Information not available 06/28/2023 Do You Have Any Pets? No [email or web address] Information not available 06/28/2023 What Is Your Relationship Status? [id number] Information not available 10/20/2022 Do You Use Your Seat Belt Or Car Seat Routinely? Yes Information not available 06/28/2023 Do You Have Smoke And Carbon Monoxide Detectors In Your Home? Yes [email or web address] Information not available 06/28/2023 Are You Passively Exposed To Smoke? No [email or web address] Information not available 06/28/2023 Are There Any Smokers In Your House? No Information not available 06/28/2023 How Much Tobacco Do You Smoke? No [id number] Information not available 10/20/2022 What Types Of Sporting Activities Do You Participate In? None [email or web address] Information not available 06/28/2023 Do You Use Sunscreen Routinely? Yes [email or web address] Information not available 06/28/2023 Has Tobacco Cessation Counseling Been Provided? No Not Needed-never Smoked [email or web address] Information not available 06/28/2023 How Many Years Have You Smoked Tobacco? 0 [email or web address] Information not available 06/28/2023 Have You Recently Traveled Abroad? No [email or web address] Information not available 06/28/2023 Do You Have Difficulty Walking Or Climbing Stairs? No [email or web address] Information not available 06/28/2023 Do You Have Any Dietary Restrictions? No [email or web address] Information not available 06/28/2023 Sex: Female Functional Status Question Answer Note LastModified by OrganizGleam ion Details LastModified Time Do you use any illicit or recreational drugs? No Information not available 06/28/2023 Do you or have you ever used any other forms of tobacco or nicotine? No Information not available 06/28/2023 What is your level of alcohol consumption? None [id number] Information not available 10/20/2022 Do you or have you ever used smokeless tobacco? Never used smokeless tobacco [id number] Information not available 10/20/2022 Do you have transportation difficulties? No [email or web address] Information not available 06/28/2023 Are you able to walk? YESWOREST [email or web address] Information not available 06/28/2023 Do you have difficulty doing errands alone? No [email or web address] Information not available 06/28/2023 Are you able to care for yourself? Yes [email or web address] Information n ot available 06/28/2023 What is your occupation? retired [email or web address] Information not available 06/28/2023 Do you have difficulty dressing or bathing? No [email or web address] Information not available 06/28/2023 Do you or have you ever used e-cigarettes or vape? Never used electronic cigarettes [email or web address] Information not available 06/28/2023 What is your exercise level? Moderate [id number] Information not available 10/20/2022 Mental Status Question Answer Note LastModified by Organizat ion Details LastModified Time Do you feel stressed (tense, restless, nervous, or anxious, or unable to sleep at night)? [id number] [email or web address] Information not available 06/28/2023 Do you have difficulty concentrating, remembering or making decisions? No [email or web address] Information no t available 06/28/2023 Family History Relationship Description Onset Age of this Age Resolved Age Notes LastModified by Organization Details LastModified Time Father Heart disease [id number] Not available 10/20/2022 14:56:02 Mother Cirrhosis of liver [email or web address] Not available 02/2023 14:05:17 Mother Malignant lymphoma [email or web address] Not available 02/2023 14:05:17 Medical History Condition Response NERVE DISEASE N BLINDNESS N RHEUMATIC FEVER N KIDNEY STONES N BLADDER PROBLEMS N MRSA N OTHER # 1 N POLIO N LUNG DISEASE/DISORDER N COPD N RADIATION / CHEMOTHERAPY Y Other # 2 N BLOOD DISEASES N EAR OR HEARING PROBLEMS N MUMPS N BOWEL PROBLEMS Y DEPRESSION (INCLUDING POST ) N STROKE/TIA N ULCERS N BENIGN PROSTATIC HYPERPLASIA N MEASLES N MYOCARDIAL INFARCTION N OBESITY N GERD/NAUSEA Y ANEURYSM N URINARY/BLADDER/KIDNEY PROBLEMS N CORONARY ARTERY DISEASE (CAD) N ADDICTION CONCERNS N ENDOMETRIOSIS N Impotence N USE OF BLOOD THINNERS N SKIN PROBLEMS N GASTROINTESTINAL DISORDER N PERIPHERAL VASCULAR DISEASE N MUSCLE,JOINT OR BONE PROBLEMS N GASTROINTESTINAL BLEEDING N BLOOD CLOTS N ASTHMA N CATARACTS N ERECTILE DYSFUNCTION N VARICOSITIES N GI PROBLEMS N Low Testosterone N INFERTILITY N AIDS/HIV N CHEMOTHERAPY / RADIATION Y LIVER DISEASE N MALE HYPOGONADISM N HYPERTENSION N Deficiency N TOURETTE'S N ANXIETY DISORDER N BLOOD TRANSFUSION N ANEMIA/BLOOD DISORDER N CHRONIC EAR INFECTIONS N BRONCHITIS N TUBERCULOSIS N GLAUCOMA N FOOT PROBLEM N DIVERTICULITIS Y SLEEP APNEA N CHICKENPOX N INFECTIOUS DISEASE N HEART ARRHYTHMIA N PROSTATE N INSOMNIA N HIGH CHOLESTEROL / HYPERLIPIDEMIA N HYPERTHYROIDISM N EYE PROBLEMS N EDEMA N CHRONIC PAIN SYNDROME N HYPOTHYROIDISM N CAROTID BLOCKAGE N CONSTIPATION N BACK / NECK PROBLEMS N HAVE YOU BEEN HOSPITALIZED OR SEEN IN [facility] IN THE PAST YEAR ? N ATHEROSCLEROSIS N BREAST PROBLEMS N DIALYSIS N ECZEMA N OSTEOPOROSIS N ARTHRITIS N APPENDICITIS N DIABETES, TYPE N BAD TEETH N ENT N HEARTBURN / REFLUX N AUTISM SPECTRUM DISORDER (ASD) N HEPATITIS / LIVER DISEASE N GOUT N SLEEP DISORDER N ALZHEIMER'S DISEASE N Brain Problems N HERPES N DEMENTIA N HEADACHES/MIGRAINES N SEIZURES/EPILEPSY N VASCULAR DISEASE N PACEMAKER N Blood Disorder N DIZZINESS N HEART DISEASE/HEART PROBLEMS N KIDNEY DISEASE N MULTIPLE SCLEROSIS N CARDIAC ARRHYTHMIA N CANCER: SPECIFY Y ATRIAL FIBRILLATION N Gall Stones N PULMONARY EMBOLISM N AUTOIMMUNE DISEASE N Gynecological History Statement/Question Response Date of Last Pap Date of Last Mammogram Date of Last Colonoscopy 12/01/2017 Date of Last Mammogram Most Recent Bone Density 08/05/2010 Obstetrics History GPAL:G 0 P 0 0 0 0 Past Encounters Encounter ID Performer Location Encounter Start Date Encounter Closed Date Diagnosis/Indication Diagnosis SNOMED-CT Code Diagnosis ICD10 Code Diagnosis Note [id number] Adolph Brown MD S_G Internal Med [facility] [address] [place], [place] [address]., [address] [address] 01/12/2021 00:00:00 01/12/2021 11:29:34 [id number] Adolph Brown MD S_GMG Internal Med [facility] [address] [place], [place] [address]., [address] [address] 1 05/08/2021 00:00:00 05/08/2021 22:55:06 [id number] Adolph Brown MD S_G Internal Med [facility] [address] [place], [place] [address]., [address] [address] 1 09/11/2021 00:00:00 09/11/2021 22:14:51 [id number] Adolph Brown MD S_G Internal Med [facility] [address] [place], [place] [address]., [address] [address] 1 12/18/2021 00:00:00 12/19/2021 12:01:18 [id number] Adolph Brown MD S_G Internal Med [facility] [address] [place], [place] [address] [address] [address] 1 04/15/2022 00:00:00 04/26/2022 18:27:23 [id number] Adolph Brown MD S_[facility] Internal Med [facility] [address] [place], [place] [address] [address] [address] 1 06/02/2022 00:00:00 06/06/2022 22:14:24 [id number] Keon Bhagat MD S_[address] [address] 08/26/2022 00:00:00 08/26/2022 13:59:36 [id number] Adolph Brown MD S_GMG Internal Med [facility] [address] [place], [place] [address] [address] 1 09/29/2022 00:00:00 09/29/2022 21:54:27 [id number] Keon Bhagat MD [place] [address] 9 11/25/2022 11:01:53 11/25/2022 11:27:22 Bilateral osteoarthritis of knees 3495099920 96565 M17.0 [id number] Brown [address] [facility] Internal [facility] [address] [place] [address] 1 02/21/2023 13:43:27 02/21/2023 14:55:57 Adult health examination 919595289 Z00.00 Screening for disorder 661536742 Z13.9 Chronic sinusitis 819830 00 J32.9 Malignant lymphoma 66707 0007 C85.90 Gastroesop hageal reflux disease 325356042 K21.9 [id number] Keon Bhagat MD [place] [address] 9 02/24/2023 11:05:28 02/24/2023 11:42:34 Bilateral osteoarthritis of knees 3490994145 02460 M17.0 [id number] Keon Bhagat MD [place] [address] 9 05/26/2023 11:00:47 05/26/2023 14:08:53 Bilateral osteoarthritis of knees 9453061537 99614 M17.0 [id number] [facility] Internal [facility] [address] [place] [address] 1 06/28/2023 14:04:18 06/28/2023 14:52:09 Chronic sinusitis 58674984 J32.9 Gastroesop hageal reflux disease 369031491 K21.9 [id number] Keon Bhagat MD [place] [address] 9 08/25/2023 11:06:28 09/12/2023 14:38:08 Bilateral osteoarthritis of knees 3088967435 45180 M17.0 Health Concerns Section Related Observation LastModified by Organization Detai ls LastModified Time None Recorded Concern Status LastModified by Organization Details LastModified Time None Recorded Advance Directives Directive N: information provided to p atient Payers Encounter Date Sequence Insurance Name Policy Number Policy Marshall Covered Member ID Marshall Member ID Guarantor Name 02/21/2023 1 [place] Brooke Chirinos [id number] Brooke Chirinos 02/21/2023 2 [place] [id number] Brooke Chirinos [id number] Brooke Chirinos 02/24/2023 1 [place] Brooke Chirinos [id number] Brooke Chirinos 02/24/2023 2 [place] [id number] Brooke Chirinos [id number] Brooke Chirinos 05/26/2023 1 [place] Brooke Chirinos [id number] 27 Brooke Chirinos 05/26/2023 2 [place] [id number] Brooke Chirinos [id number] Brooke Chirinos 06/28/2023 1 [place] Brooke Chirinos [id number] Brooke Chirinos 06/28/2023 2 [place] [id number] Brooke Chirinos [id number] Brooke Chirinso 08/25/2023 1 [place] Brooke Chirinos [id number] 27 Brooke Chirinos 08/25/2023 2 [place] [id number] Brooke Chirinos [id number] Brooke Chirinos Notes Date Note Type Note Provider Name and Address Organization Details Recorded Time 02/21/2023 text/html low-grade B-cell lymphoma stable sinusitis about the same GERD no nausea no vomiting arthritis doing all right wellness concur Adolph Brown MD [address], [place], [address], [employer] 03/05/2023 16:29:53 06/28/2023 text/html low-grade B-cell lymphoma stable sinusitis about the same GERD no nausea no vomiting arthritis doing okaySinus infection again Adolph Brown MD [address], [place], [address], [employer] 06/29/2023 23:04:26 08/25/2023 text/html Patient returns. She would like injections again in both knees. She has rather severe lateral compartment osteoarthritis in both knees and significant valgus deformities bilaterally left being worse. Fortunately she does not have instability at. She wants to proceed with knee replacement surgery but cannot because her is extremely ill and requires her to care for him. Keon Bhagat MD [address], [place], [address], [employer] 09/11/2023 18:08:39 OBGyn Episode No OBEpisode recorded.
[2025-01-24] MEDS: LACTATED RINGERS 1,000 ML 30 ML IV CONT ×2 (06:30→11:11)
[2025-01-24] MEDS: ACETAMINOPHEN 500 MG TABLET 1000 MG PO (06:35)
[2025-01-24] MEDS: VANCOMYCIN 1,000 MG/NS 250 ML 1,000 MG/250 ML BAG 250 MG IVPB ×2 (06:40→18:19)
--- NOTE | 2025-01-24 06:55 | P.PNAN_ITS ---
Anes - Initial Pre Proc Eval Procedure: Operation Date: 01/24/25 07:30 Proposed Procedures p Right Total Knee Arthroplasty - Keon Bhagat MD Date/Time: 01/24/25 06:55 Surgeon: Keon Bhagat MD Pre Op Diagnosis: O A Right Knee Patient Data Age: 74 Gender: F Height: 1.65 m Weight: 68.1 kg Last Vital Signs Temp 36.8 C 01/01/25 14:11 Pulse 80 01/01/25 14:11 Resp 16 01/01/25 14:11 BP 142/70 H 01/01/25 14:11 Pulse Ox 98 01/01/25 14:11 O2 Del Method Room Air 01/01/25 14:11 Allergies Allergy/AdvReac Type Severity Reaction Status Date / Time zanamivir Allergy Intermediate sob Verified 01/18/25 09:06 celecoxib (From Celebrex) AdvReac Nausea and Verified 01/18/25 09:06 Vomiting Home Medications ?Medication ?Instructions ?Recorded ?Confirmed ?Type No Home Medications 10/24/24 01/19/25 History Patient hx anesthesia problems: none Family hx anesthesia problems: none Results Review: All pre-operative results and documents have been reviewed as part of the pre- operative evaluation. [facility] Past Medical History Medical History (Updated 01/23/25 @ 13:39 by Kiran Block DO) Non-Hodgkin lymphoma Cancer Anemia Migraine Thyroid disorder Surgical History Surgical History (Updated 01/23/25 @ 13:39 by Kiran Block DO) History of aortic coarctation repair History of left knee replacement History of cholecystectomy 2007 Family History Family History Mother Hypertension Cancer Father Heart disease Sibling Heart disease Hypertension Legal Guardian Heart disease Hypertension Social History Social History Smoking status: Never smoker Alcohol intake: never Substance use: never Do You Feel Safe in your Home?: Yes Lack of Transportation: No Lack of Food: Never True Current Housing: Decline to Answer Concerned About Future Housing: Decline to Answer Difficulty Paying Gas/Electric Bills: Decline to Answer Difficulty Paying for Meds: Decline to Answer Currently Unemployed: Decline to Answer Education: Decline to Answer Difficulty w/ Childcare or Family Care: Decline to Answer Living arrangements: alone Occupation/Education: retired Gender identity (if verbalized by the patient): Female Spiritual care concerns: No Anes - Eval Final PreProcedure Day of Procedure 01/24/25 06:55 Patient weight: normal Heart: regular rate and rhythm Lungs: clear to auscultation and normal air movement Airway: Mallampati scale class III Neurological: alert and oriented Last oral intake: >/= 8 hours ASA classification: III Emergent: no Anesthetic plan: proceed Anesthesia type and monitoring: general GIVS and standard monitoring Results Review: All pre-operative results and documents have been reviewed as part of the pre-operative evaluation. Informed Consent: The patient's anesthetic plan and its attendant risks and benefits were discussed with the patient/family/POA. Questions were solicited and answers provided to the satisfaction of the patient/family/POA.
[2025-01-24] MEDS: TRANEXAMIC ACID 1,000MG/ISO100 1,000 MG/100 ML BAG 200 MG IVPB (07:10)
--- NOTE | 2025-01-24 07:10 | WPDHPUPDATE1 ---
History and Physical Update Update Date/Time: 01/24/25 07:10 History and Physical has been reviewed, including an updated exam of the patient. There are NO changes in the patient's condition. Risks, benefits, and alternatives have been discussed and questions answered. Patient agrees to proceed with procedure.
[2025-01-24] MEDS: ceFAZolin SODIUM 1 GM VIAL 3 GM IRRIGATION (07:30)
[2025-01-24] MEDS: ceFAZolin 2 GM/D5W 50 ML 2 GM/50 ML BAG IVPB ×3 (07:30→23:11)
[2025-01-24] MEDS: SODIUM CHLORIDE 0.9% IV 37.7 ML, MORPHINE SULFATE INJ (*CRX) 2 MG, ROPivacaine HCL 1% 2... INFILTRATE (07:30)
[2025-01-24] MEDS: GENTAMICIN BONE CEMENT REFOBACIN 1 EACH TOPICAL (10:09)
[2025-01-24] MEDS: TRANEXAMIC ACID 1,000 MG/10 ML AMPUL 1000 MG IV PUSH (10:12)
[2025-01-24] MEDS: ceFAZolin SODIUM 1 GM VIAL 2 GM IV PUSH (10:12)
[2025-01-24] MEDS: KETOROLAC 15 MG/ML VIAL (*BKC) 7.5 MG IV PUSH ×2 (10:33→23:08)
--- NOTE | 2025-01-24 11:15 | P.OP_ITS ---
Procedure Note - Detailed Date of Procedure 01/24/25 Pre-op Diagnosis O A Right Knee Post-op Diagnosis Same Procedure Performed Right total knee arthroplasty with constrained implants due to grade 2 valgus deformity Surgeon Keon Bhagat MD Credit Interviewer Vincenzo Velez Anesthesia General Description of Procedure Patient was brought to the operating room and general anesthesia was administered. She received 2 g of Ancef weight based vancomycin 1 g of TXA preoperatively. The right knee was prepped and draped in usual fashion. Under anesthesia she had about 5? of hyperextension. To valgus stress she had what appeared to be mild additional valgus laxity with significant valgus deformity. Her preoperative x-ray showed 17 degree anatomic axis valgus alignment on the AP standing view. Limb was exsanguinated tourniquet elevated to 235 mmHg. A 7 in longitudinal midline incision was used and a standard parapatellar arthrotomy utilized. Partial excision of infrapatellar fat pad was performed and a quadriceps synovectomy carried out. The patella was mild to moderately arthrit ic diffusely. It was small measured 20 mm in thickness. Suprapatellar fat pad is excised. I a guide salina was inserted on femoral canal after aspiration of canal contents using the 5 degree valgus cutting bushing, 9 mm of bone removed the distal femur. 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 Additional 2 mm of bone removed and this removed 2 mm of bone from the lateral femoral condyle. Next the tibial plateau was cut. Cut was made perpendicular to the axis of the tibia. Meniscal remnants were excised the PCL was recessed but we did not release posterior capsule because of her hyperextension. At 90? flexion gap was a tight 8 mm medially and tight 12 mm laterally. Femoral sizing guide was applied the distal femur set at 5? of external rotation which matched Whitesides line. Posterior referencing pinholes were placed and the size 62.5 AP vanguard cutting block applied and the AP and chamfer cuts were made in the 62.5 fit line to line medial to lateral and anterior flange rested on the anterior cortex. We inserted the 10 CR trial tibia and we were little snug at 90? with respect anterior posterior drawer. We lacked 15? of extension with the medial side booked open. The lateral capsule was transected transversely 1 cm proximal to the joint line and the posterolateral capsule released anterior to the lateral collateral ligament and between the lateral collateral ligament and the popliteus at the level of the joint line posteriorly. Care was taken to preserve the lateral collateral ligament and the popliteus tendon. On re trialing the knee came to about 10? from full extension. In this position, the medial side was still distracted open. On valgus stress the medial side opened 6 mm. There was no play laterally. Therefore an additional 2 mm of bone removed the distal femur chamfer cuts revisited. The tibia was sized to a 67. This fit line to line posterolateral early to anteromedially this was punched. Seventy-one specifically was going to overhang rotation. On repeat trialing the knee looked very close to full extension but had a barely positive bounce. Trialing with the 10 mm thick 5 in 1 trial and the CR femur, the medial side opened 7 or 8 mm. No play laterally in extension. It was clear that constrained femoral component would be necessary to achieve stability in extension if we wished to preserve the lateral collateral ligament and popliteus tendon. At 90? we were still not just a little bit tight to anterior posterior drawer. Therefore, we reapplied the tibial cutting guide and removed about 1 mm of bone the tibial plateau. The tibia was re punched. The 62.5 360 femoral trial was applied the femur it was pinned in place. We reapplied the cutting guide to prepare the intercondylar box the SSK housing and the Boss Reamer was used to ream a hole for the boss. We then trialed again and the the 10 mm SSK trial, the knee came out to full extension with negative bounce the appropriate anterior posterior stability throughout the motion. With the SSK femur elected to resurface the patella. Patella was cut to 14 mm. Bone quality was very good there. The lug holes were made in preparation for a 31 thin patella the restore the patellar thickness to 20.5 mm. Patellar tracking was very poor at this point. The mariana rniquet had been released earlier at 90 minutes. A lateral retinacular release was necessary which did achieve excellent tracking. The limb was re-exsanguinated and tourniquet elevated again to 275 mmHg. The bony surfaces were prepared with the step drill for cement interdigitation irrigated thoroughly and dried. A 24 mm cement restrictor was placed the appropriate depth in the femoral canal. Two batches of methylmethacrylate 1 with the gentamicin powder were mixed and applied to the 67 tibial tray, the 62.5 vanguard SSK femoral component. Cement applied the tibial plateau and canal and pressurized to the tibia. Tibial component fully seated. Cement applied the femur and in the canal and femoral component fully seated. The knee was brought into extension with an 11 mm 5 1 insert for cement pressurization and the 31 x 6.2 mm patella cemented. Tourniquet was released total tourniquet time 111 minutes. After cement hardening excess cement was sought for removed and hemostasis was achieved. We trialed with the 10 SSK trial which had range of motion 0-130 degrees central patellar tracking throughout range of motion and normal stability throughout. The 10 mm SSK poly component was placed without difficulty locked the locking pin range of motion stability reconfirmed. Central patellar tracking. The patella did not impinge on the post at 130? of flexion. Local anesthetic cocktail was injected throughout the periarticular soft tissues. Wound again irrigated with antibiotic solution closed with 1. Two Vicryl 1. Unidirectional barbed Stratafix suture skin closed with 2 subcu Vicryl 3-0 subcuticular Monocryl and glue. EBL was 250 cc. Two additional g of Ancef and 1 g of TXA given at time of wound closure. There were no complications. Patient was transferred postop recovery room in stable condition. [facility] Billing Surgery - Charge Forward: Surgery Billing (Right total knee replacement)
--- NOTE | 2025-01-24 11:19 | PM.OP ---
Procedure Note - Brief Procedure Note - Brief Date of procedure: 01/24/25 O A Right Knee Procedure performed: Right total knee arthroplasty Surgeon: NOVA Briscoe Findings: 74-year-old female underwent right total knee arthroplasty on 01/24. I was involved in the procedure including positioning the patient on the OR table and 1st assisting through the time of surgery. Total time spent was 3-1/2 hours
--- NOTE | 2025-01-24 14:36 | PCPTNOTE ---
Attempted therapy evaluation 1430, patient still too fatigued and falling back asleep in between questions. Will follow.
[2025-01-24] MEDS: ONDANSETRON INJ 4 MG/2 ML VIAL IV PUSH (15:23)
[2025-01-24] MEDS: SODIUM CHLORIDE 0.9% IV 1,000 ML 125 ML IV CONT (15:50)
[2025-01-24] MEDS: ACETAMINOPHEN 325 MG TABLET 650 MG PO ×2 (17:34→19:59)
[2025-01-24] MEDS: SENNA/DOCUSATE SODIUM TABLET 2 TAB PO (17:34)
[2025-01-24] MEDS: oxyCODONE HCL (*CRX) 5 MG TAB IR PO ×2 (17:35→20:00)
--- NOTE | 2025-01-24 19:14 | PC.NURSE ---
On 01/24/25, the LBD TEACHER, Ana Stratton], provided care and completed [facility] documentation on this patient. I have reviewed the LBD TEACHER's documentation and agree with the findings.
[2025-01-24] MEDS: FAMOTIDINE 20 MG TABLET PO (19:59)
[2025-01-24] MEDS: APIXABAN 2.5 MG TABLET PO (19:59)
[2025-01-25] MEDS: ACETAMINOPHEN 325 MG TABLET 650 MG PO ×3 (01:00→08:28)
[2025-01-25] MEDS: oxyCODONE HCL (*CRX) 5 MG TAB IR PO ×4 (01:00→10:55)
[2025-01-25 02:25] VITALS: BP 131/57; PULSE 101; RESP 16; TEMP 36.3; O2SAT 97
[2025-01-25] MEDS: KETOROLAC 15 MG/ML VIAL (*BKC) 7.5 MG IV PUSH (05:03)
[2025-01-25] MEDS: VANCOMYCIN 1,000 MG/NS 250 ML 1,000 MG/250 ML BAG 250 MG IVPB (05:06)
[2025-01-25 06:45] VITALS: BP 136/55; PULSE 97; RESP 16; TEMP 36.8; O2SAT 94
[2025-01-25] MEDS: ceFAZolin 2 GM/D5W 50 ML 2 GM/50 ML BAG IVPB (06:49)
--- NOTE | 2025-01-25 07:12 | PM.PNORT ---
Subjective Subjective Date/Time Seen: 01/25/25 07:12 Interval history: Postop day 1 patient is alert. She is afebrile vital signs are stable. Morning labs and not been completed yet. Patient did have a little bit of nausea yesterday and did vomit once overnight. The vomit happened after she took a pain pill on empty stomach. She has been eating since and the nausea has completely dissipated. Patient overall feels very good at this point. She has been up to the restroom overnight multiple times in urinating well. She did walk with therapy yesterday and tolerated that. Her dressing is dry and intact. She has some mild swelling and ecchymosis around the knee. Neurovascularly she is intact. Will plan have the patient work with therapy this morning and if she continues to do well she will be discharged home later this morning. Objective Data Vital Signs Vital Signs: Vital Signs - 24 hr 01/24/25 11:11 01/24/25 11:25 01/24/25 11:40 Temperature 97.1 F L Pulse Rate 107 H 100 101 H Respiratory Rate 18 18 20 Blood Pressure 164/82 H 165/71 H 165/85 H Pulse Oximetry 100 97 94 Oxygen Delivery Simple Face Mask Simple Face Mask Room Air Oxygen Flow Rate 8 8 01/24/25 11:55 01/24/25 12:10 01/24/25 12:25 Temperature Pulse Rate 102 H 101 H 101 H Respiratory Rate 22 H 16 18 Blood Pressure 165/78 H 163/75 H 159/72 H Pulse Oximetry 97 97 97 Oxygen Delivery Room Air Nasal Cannula Nasal Cannula Oxygen Flow Rate 2 2 01/24/25 12:40 01/24/25 12:55 01/24/25 13:00 Temperature 97.9 F Pulse Rate 98 99 100 Respiratory Rate 16 16 16 Blood Pressure 159/74 H 156/71 H 159/66 H Pulse Oximetry 98 95 97 Oxygen Delivery Nasal Cannula Nasal Cannula Oxygen Flow Rate 2 2 01/24/25 13:10 01/24/25 13:15 01/24/25 13:45 Temperature 97.7 F 97.5 F L Pulse Rate 99 113 H Respiratory Rate 16 16 Blood Pressure 150/65 H 153/69 H Pulse Oximetry 95 98 97 Oxygen Delivery Nasal Cannula Oxygen Flow Rate 2 01/24/25 14:45 01/24/25 16:25 01/24/25 18:45 Temperature 98.1 F 97.9 F Pulse Rate 107 H 99 Respiratory Rate 16 24 H Blood Pressure 135/69 139/83 Pulse Oximetry 98 92 Oxygen Delivery Room Air Oxygen Flow Rate 01/24/25 21:00 01/24/25 22:44 01/25/25 02:25 Temperature 97.9 F 97.4 F L 97.4 F L Pulse Rate 99 111 H 101 H Respiratory Rate 16 20 16 Blood Pressure 143/64 H 138/59 L 131/57 L Pulse Oximetry 98 96 97 Oxygen Delivery Oxygen Flow Rate Intake/Output Intake/Output: Intake & Output 01/22/25 01/23/25 01/24/25 01/25/25 23:59 23:59 23:59 23:59 Intake Total 1740 650 Balance 1740 650 Meds/Results Medications: Active Medications Generic Name Dose Route Start Last Admin Trade Name Freq PRN Reason Stop Dose Admin Acetaminophen 650 mg 01/24/25 13:00 01/25/25 05:04 Acetaminophen 325 Mg Tablet PO 650 mg Q4H JYOTI Administration Apixaban 2.5 mg 01/24/25 21:00 01/24/25 19:59 Apixaban 2.5 Mg Tablet PO 02/05/25 09:01 2.5 mg Q12HR JYOTI Administration Diphenhydramine HCl 25 mg 01/24/25 13:00 Diphenhydramine Hcl Inj 50 Mg/Ml Vial IV PUSH Q6H PRN Itching Famotidine 20 mg 01/24/25 21:00 01/24/25 19:59 Famotidine 20 Mg Tablet PO 20 mg Q12HR JYOTI Administration Vancomycin HCl 1,000 mg in 250 mls @ 250 mls/hr 01/24/25 18:00 01/25/25 06:54 Vancomycin 1,000 Mg/Ns 250 Ml IVPB 01/25/25 06:59 Infused Q12H JYOTI Infusion Cefazolin Sodium 2 gm in 50 mls @ 100 mls/hr 01/24/25 15:00 01/25/25 06:49 Ancef 2 Gm/D5w 50 Ml IVPB 01/25/25 07:29 100 mls/hr Q8H JYOTI Administration Ketorolac Tromethamine 7.5 mg 01/24/25 17:00 01/25/25 05:03 Ketorolac 15 Mg/Ml Vial (*Bkc) IV PUSH 01/25/25 18:01 7.5 mg Q6HR JYOTI Administration Morphine Sulfate 2 mg 01/24/25 13:00 Morphine Sulfate (*Crx) 2 Mg/Ml Inj IV PUSH Q2H PRN Breakthrough Pain Rated 4-6 or NPO Naloxone HCl 0.1 mg 01/24/25 13:00 Naloxone Hcl 0.4 Mg/Ml Vial IV PUSH Q2M PRN Opiate Reversal Ondansetron HCl 4 mg 01/24/25 13:00 01/24/25 15:23 Ondansetron Inj 4 Mg/2 Ml Vial IV PUSH 4 mg Q4H PRN Administration Nausea And Vomiting Oxycodone HCl 5 mg 01/24/25 13:00 01/25/25 05:04 Oxycodone Hcl (*Crx) 5 Mg Tab Ir PO 5 mg Q4H JYOTI Administration Oxycodone HCl 5 mg 01/24/25 13:00 Oxycodone Hcl (*Crx) 5 Mg Tab Ir PO Q4H PRN Pain Rated 7-10 Polyethylene Glycol 17 gm 01/25/25 09:00 Polyethylene Glycol 3350 17 Gm Powd.Pack PO QAM JYOTI Senna/Docusate Sodium 2 tab 01/24/25 17:00 01/24/25 17:34 Senna/Docusate Sodium Tablet PO 2 tab BID JYOTI Administration Radiology Results: ITS Impressions Knee X-Ray 01/24/25 12:03 IMPRESSION: 1. Recent right total knee arthroplasty. Labs Labs: Laboratory Results - last 24 hr 01/24/25 06:16 Blood Type A Positive Antibody Screen Positive Antibody Identification Anti-E Antigen Identification TNP RASHAWN, IgG Interpret TNP RASHAWN, Poly Interpret Neg RASHAWN, Complement Interp TNP Enhanced Crossmatch See Detail
[2025-01-25 07:14] LABS: Basophils Percent Auto 0.4 % (0.2-1.2); Eosinophils Percent Auto 0.2 % (0-4.4); Hematocrit 28.4 % (37.0-47.0); Hemoglobin 8.9 g/dL (12.0-15.0); Immature Granulocyte Absolute 0.03 K/mm3 (0.00-0.031); Immature Granulocyte Percent A 0.4 % (0-0.5); Lymphocytes Absolute Auto 1.57 K/mm3 (0.9-3.2); Lymphocytes Percent Auto 18.4 % (18.3-44.2); Mean Corpuscular HGB Conc 31.3 g/dl (32-36); Mean Corpuscular Hemoglobin 29.6 pg (26-34); Mean Corpuscular Volume 94.4 fl (80-100); Mean Platelet Volume 9.5 fl (7.4-10.4); Monocytes Absolute Auto 1.2 K/mm3 (0.1-0.6); Monocytes Percent Auto 13.6 % (2.6-8.5); Neutrophils Absolute Auto 5.7 K/mm3 (1.3-6.7); Platelet Count Result 176 k/mm3 (150-375); Red Blood Count 3.01 M/mm3 (4.2-5.4); Red Cell Distribution Width 14.3 % (11.5-14.5); White Blood Count 8.5 K/mm3 (4.5-10.0)
[2025-01-25 07:27] LABS: Anion Gap 5 mmol/L (4-12); Blood Urea Nitrogen 10 mg/dL (7-17); Carbon Dioxide 26 mmol/L (22-30); Chloride 105 mmol/L (98-107); Estimated CRCL calculation 66 ml/min; Estimated Glomerular Filt Rate > 60; Glucose 105 mg/dL (65-110); Potassium 3.5 mmol/L (3.4-5.0); Sodium 136 mmol/L (137-145)
[2025-01-25] MEDS: FAMOTIDINE 20 MG TABLET PO (08:28)
[2025-01-25] MEDS: SENNA/DOCUSATE SODIUM TABLET 2 TAB PO (08:28)
[2025-01-25] MEDS: APIXABAN 2.5 MG TABLET PO (08:29)
== END 2025-01-25 11:20 | disposition home or self-care (01) ==
LOC: ANHSURGERY 05:55 → ANH3MEDSUR 13:02
PROVIDERS: Physician Assistant Surgical; PCP Internal Medicine; Visit Provider Orthopaedic Surgery
PROC: (CPT 27447; principal; 2025-01-24 07:30)
DX: M17.11 Unilateral primary osteoarthritis, right knee (principal); M21.061 Valgus deformity, not elsewhere classified, right knee; D64.9 Anemia, unspecified; E07.9 Disorder of thyroid, unspecified; Z98.890 Other specified postprocedural states; Z90.49 Acquired absence of other specified parts of digestive tract; Z96.652 Presence of left artificial knee joint; Z85.72 Personal history of non-Hodgkin lymphomas; Z86.79 Personal history of other diseases of the circulatory system; Z80.9 Family history of malignant neoplasm, unspecified; Z82.49 Family history of ischemic heart disease and other diseases of the circulatory system
CPT/HCPCS: 27447; 36415; 73560; 80048; 85025; 86850; 86880; 86900; 86901; 86902; 86922; 97110; 97116; 97161; 97165; 97530; 97535; A9270; C1713; C1776; J0171; J0690; J1100; J1171; J1885; J2003; J2270; J2405; J2704; J2795; J3010; J3370; J7030; J7120

== ENCOUNTER 2025-04-01 12:30 | Outpatient (RCR) | payer MEDICARE, SELFPAY ==
--- NOTE | 2025-01-28 08:56 | OPREHPOC ---
Outpatient Therapy Plan of Care This is a Multidisciplinary Plan of Care that may contain components documented by all disciplines (PT, OT, and ST.) PT Problem 1 PT Problem #1 Knowledge Deficit PT Goal 1 Goal / Goal Update Patient to demonstrate independence with HEP for improved self-reliance of symptom management. Target Visit 5 PT Problem 2 PT Problem #2 Pain PT Goal 1 Goal / Goal Update Patient to decrease subjective reports of pain to <5/10 for improved ADL tolerance. Target Visit 5 PT Problem 3 PT Problem #3 Impaired Range of Motion PT Goal 1 Goal / Goal Update Patient to demonstrate an increase of r knee AROM of 0-120 deg to improve mobility required for gait /stair negotiation. Target Visit 10 PT Problem 4 PT Problem #4 Impaired Strength PT Goal 1 Goal / Goal Update Patient to demonstrate R knee strength >=4/5 for improved functional stability required for ADLs. Target Visit 10 PT Problem 5 PT Problem #5 Impaired Endurance PT Goal 1 Goal / Goal Update Patient to improve distance ambulated during 2MWT from 115 feet to 250 feet to demonstrate an improvement in ADL endurance. Target Visit 10
--- NOTE | 2025-01-28 08:56 | PTOPEVAL1 ---
Assessment and note entered by Alysia Goins, PT Evaluation Information Assessment Status Evaluation ICD-10 Condition Codes (PT) Pain in right knee M25.561,Difficulty Walking R26. 2,Aftercare following joint replacement surgery Z47.1 Onset 01/25/25 Subjective Information Pt presents s/p R TKA on 01/25/[address] Lipscomb. Pt reports no complications with surgery. Pt walked without device prior to surgery. Pt is currently using 2WW. Pt doing stairs one at a time, has a ramp to enter her home. Pt needs to get back to ADLS and IADLS, likes cooking. Pt is currently sleeping in her lift chair/recliner. Pt reports doing her chair stretches as instructed. Pt is having assist with lower body dressing using assisted devices. Pt reports having nausea throughout the night and at least 1x/day. She reports decreased appetite since surgery as well. Reported Pain Level Pain Score 8: Self Report Assessment PT Clinical Summary Pt is a 74 year old female who presents to physical therapy s/p R TKA on 01/25/25. Pt demonstrates post-op weakness, post-op pain, decreased mobility, gait deficit, and decreased flexibility that limit their ability to perform ADLs. Pt will benefit from skilled physical therapy to address the above listed deficits and return to PLOF. HEP instructed and written handout provided, EX tolerated well with no adverse effects to note post-session. Pt was educated on importance of adherence to HEP. Pt was also educated on anatomy, prognosis, home modalities, and PT POC. Plan of Care Interventions Gait Training,Manual Therapy,Neuro Re-education, Patient/Caregiver Education,Therapeutic Activities ,Therapeutic Exercise PT Services Indicated Yes Treatment Frequency and 2x/wk for 10 visits Duration These treatments will address the objective and functional deficits as defined above. The patient will be advanced safely and appropriately in order for the patient to progress towards his/her prior level of function. Additional exercises will be introduced and as well as a comprehensive home exercise program upon discharge, if needed, ?to ensure carryover of functional gains achieved in the clinic. This treatment plan has been reviewed and agreement upon by the patient.
--- NOTE | 2025-02-21 12:02 | PCPTNOTE ---
Cancelled pt not feeling well per front office. AKS
--- NOTE | 2025-02-27 13:16 | OPREHPOC ---
Outpatient Therapy Plan of Care This is a Multidisciplinary Plan of Care that may contain components documented by all disciplines (PT, OT, and ST.) PT Problem 1 PT Problem #1 Knowledge Deficit PT Goal 1 Goal / Goal Update Patient to demonstrate independence with HEP for improved self-reliance of symptom management. (02/27 varying compliance due to pain) Target Visit 5 Progress Partially Met PT Problem 2 PT Problem #2 Pain PT Goal 1 Goal / Goal Update Patient to decrease subjective reports of pain to <5/10 for improved ADL tolerance. (02/27/25 no change in subjective reports, pt has difficulty with visual analog scale) Target Visit 5 Progress Partially Met PT Problem 3 PT Problem #3 Impaired Range of Motion PT Goal 1 Goal / Goal Update Patient to demonstrate an increase of r knee AROM of 0-120 deg to improve mobility required for gait /stair negotiation. (02/27/25 0-115deg AROM) Target Visit 10 Progress Partially Met PT Problem 4 PT Problem #4 Impaired Strength PT Goal 1 Goal / Goal Update Patient to demonstrate R knee strength >=4/5 for improved functional stability required for ADLs. ( 02/27/25 progressing R knee ext 3/5, flexion 4-/5) Target Visit 10 PT Problem 5 PT Problem #5 Impaired Endurance PT Goal 1 Goal / Goal Update Patient to improve distance ambulated during 2MWT from 115 feet to 250 feet to demonstrate an improvement in ADL endurance. (02/27/25 MET) Target Visit 10 Progress Met PT Goal 2 Goal / Goal Update Patient to ambulate during 2MWT with SC of 300 feet to demonstrate an improvement in community ambulation. Target Visit 10
--- NOTE | 2025-02-27 13:16 | PTOPPROG ---
Assessment and note entered by Alysia Goins, PT Evaluation Information Assessment Status Progress ICD-10 Condition Codes (PT) Pain in right knee M25.561,Difficulty Walking R26. 2,Aftercare following joint replacement surgery Z47.1 Onset 01/25/25 Subjective Information Pt had a rough week last week and denied doing a lot of her stretches. She is trying to get back to her normal routine. She is having more issues with her R ankle than anything. She reports better ability to get in and out of bed and the chair. She is able to walk around her house with more confidence with the wheeled walker and the cane. She always walks around her home 5-6 times every time she gets up for something. She is limited in her ADL tolerance and has not been performing very much cooking, cleaning, or laundry. Assessment PT Clinical Summary Patient's condition has improved overall as evidenced by advancements in symptoms, mobility, strength, and overall functional use of the extremity. However, some limitations are still present such as limited community ambulation, knee ROM, knee strength and continued pain and swelling. Her LEFS disability score has reduced form 83% to 70% demonstrating subjective improvements but still presenting with severe limitations. Patient would benefit from continued skilled PT services to address the above listed impairments and facilitate a return to their PLOF. Plan of Care Interventions Gait Training,Manual Therapy,Neuro Re-education, Patient/Caregiver Education,Therapeutic Activities ,Therapeutic Exercise PT Services Indicated Yes Treatment Frequency and 2x/wk for 10 visits Duration These treatments will address the objective and functional deficits as defined above. The patient will be advanced safely and appropriately in order for the patient to progress towards his/her prior level of function. Additional exercises will be introduced and as well as a comprehensive home exercise program upon discharge, if needed, ?to ensure carryover of functional gains achieved in the clinic. This treatment plan has been reviewed and agreement upon by the patient.
--- NOTE | 2025-04-03 15:53 | PTOPDC ---
Assessment and note entered by Alysia Goins, PT Evaluation Information Assessment Status Discharge - Pt Not Present ICD-10 Condition Codes (PT) Pain in right knee M25.561,Difficulty Walking R26. 2,Aftercare following joint replacement surgery Z47.1 Onset 01/25/25 Subjective Information Pt called to cancel all future appts, no reason given. Assessment PT Clinical Summary Pt called to cancel all future appts, no reason given. Pt self-DC from PT this date. Plan of Care PT Services Indicated Yes
== END 2025-04-03 17:37 | disposition home or self-care (01) ==
LOC: ANHPT 12:30
PROVIDERS: PCP Internal Medicine; Visit Provider Orthopaedic Surgery
DX: M17.11 Unilateral primary osteoarthritis, right knee (principal); Z96.651 Presence of right artificial knee joint
CPT/HCPCS: 97110; 97116; 97140; 97161; 97530